=== PATIENT | female | born 1975 | race Caucasian/White ===

== ENCOUNTER → 2017-11-07 10:07 | Outpatient (CLI) | payer BC, SELFPAY ==
[2017-11-07 12:20] LABS: Absolute Lymphocyte Count 2.29 X10^3/ul (0.83-4.51); Absolute Neutrophil Count 4.5 X10^3/uL (2.0-7.7); Basophil# 0.04 X10^3/uL; Basophil% 0.5 % (0-1); Eosinophil# 0.12 X10^3/uL; Eosinophils% 1.6 % (0-5); Hematocrit 42.5 % (37-47); Hemoglobin 13.7 g/dl (12.0-15.0); Lymphocyte # 2.29 X10^3/ul (4.0); Lymphocyte % 30.1 % (19-41); Mean Corp Hgb Conc 32.2 g/gl (32-36); Mean Corpuscular Hgb 28.2 pg (27.0-32.0); Mean Corpuscular Volume 87.6 fL (81-99); Mean Platelet Vol. 10.5 fl (6.2-12.0); Monocyte# 0.64 X10^3/uL; Monocyte% 8.4 % (0-10); Neutrophil # 4.52 X10^3/uL (2.7-7.7); Neutrophil % 59.3 % (47-70); Platelet Count 449 K/mm3 (150-450); RBC Distribution Width CV 13.8 % (11.6-14.6); RBC Distribution Width SD 43.9 fl (35.1-43.9); Red Blood Count 4.85 M/mm3 (4.2-5.4); White Blood Count 7.6 K/mm3 (4.4-11.0)
[2017-11-07 12:24] LABS: POSITIVE COUNT NO; POSITIVE DIFFERENTIAL NO; POSITIVE MORPHOLOGY NO
[2017-11-07 12:33] LABS: ALB/GLOB Ratio 0.8 RATIO (0.9-2.4); AST(SGOT) 16 U/L (15-37); Alanine Aminotransfer ALT/SGPT 34 U/L (13-56); Albumin, Serum 3.6 g/dL (3.2-5.0); Alkaline Phosphatase 92 U/L (45-117); Anion Gap 6 (5-15); BUN 14 mg/dL (7-18); BUN/Creat Ratio 15.5 RATIO (10-20); Calcium,Total 9.2 mg/dL (8.5-10.1); Chloride 104 mmol/L (98-107); EST Glomerular Filtration Rate 73 mL/min (>60); Est Glom Filt Rate - Afr Amer 88 mL/min (>60); Globulin 4.6 g/dL (2.2-4.2); Glucose 87 mg/dL (74-106); Potassium 4.1 mmol/L (3.5-5.1); Protein, Total 8.2 g/dL (6.4-8.2); Rheumatoid Factor < 10.0 IU/mL (<15); Sodium Level 139 mmol/L (136-145)
[2017-11-07 12:35] LABS: Color, Urine Yellow (Yellow); Glucose, Dipstick Normal (Normal); Ketone-Dipstick Negative (Negative); Leukocyte Esterase-Dipstick Negative /ul (Negative); Nitrite-Dipstick Negative (Negative); Occult Blood-Urine Negative /ul (Negative); Protein-Dipstick Negative (Negative); Urine Bilirubin Dipstick Negative (Negative); Urine Clarity Sl. Cloudy (Clear); Urine Urobilinogen Normal (Normal)
[2017-11-07 12:37] LABS: Protein, Urine (Random) 14.5 mg/dL (<11.9); Protein:Creat Ratio 63 mg/g CRE (0-200)
[2017-11-09 03:06] LABS: Complement C3 187 mg/dL (82-167)
[2017-11-09 07:58] LABS: CCP IgG Antibodies 5 units (0-19); HEPATITIS B SURFACE AG Negative (Negative); Hep B Surface Antibodies Non Reactive (.); Hep C Antibodies <0.1 s/co ratio (0.0-0.9)
[2017-11-10 12:07] LABS: Anti-Centromere B Ab <0.2 AI (0.0-0.9); Anti-Jo <0.2 AI (0.0-0.9); Anti-Scleroderma-70 AB <0.2 AI (0.0-0.9); RNP Ab <0.2 AI (0.0-0.9); SJOGREN'S Anti-SS-A test < 0.2 AI (0.0-0.9); SJOGREN'S Anti-SS-B test < 0.2 AI (0.0-0.9); Smith Ab <0.2 AI (0.0-0.9)
[2017-11-10 15:17] LABS: ANTINUCLEAR ANTIBODIES DIRECT Negative (Negative); Anti-dsDNA Ab <1 IU/mL (0-9)
== END ==
LOC: MTLAB 10:10
PROVIDERS: Family Provider Nurse Practitioner Family; PCP Nurse Practitioner Family; Visit Provider Internal Medicine Rheumatology
DX: M06.4 Inflammatory polyarthropathy (principal); R76.8 Other specified abnormal immunological findings in serum; M79.7 Fibromyalgia; K21.9 Gastro-esophageal reflux disease without esophagitis; J45.909 Unspecified asthma, uncomplicated; R51 Headache; E03.9 Hypothyroidism, unspecified; E78.5 Hyperlipidemia, unspecified; G47.33 Obstructive sleep apnea (adult) (pediatric)
CPT/HCPCS: 36415; 80053; 81002; 82570; 84156; 85025; 86038; 86160; 86200; 86225; 86235; 86431; 86706; 86803; 87340

== ENCOUNTER → 2018-01-20 16:23 | Outpatient (CLI) | payer BC, SELFPAY ==
[2018-01-20 18:15] LABS: ALB/GLOB Ratio 0.8 RATIO (0.9-2.4); AST(SGOT) 22 U/L (15-37); Alanine Aminotransfer ALT/SGPT 47 U/L (13-56); Albumin, Serum 3.4 g/dL (3.2-5.0); Alkaline Phosphatase 94 U/L (45-117); Anion Gap 10 (5-15); BUN 15 mg/dL (7-18); BUN/Creat Ratio 14.7 RATIO (10-20); Calcium,Total 8.7 mg/dL (8.5-10.1); Chloride 104 mmol/L (98-107); Creatinine, Serum 1.02 mg/dL (0.55-1.02); EST Glomerular Filtration Rate 63 mL/min (>60); Est Glom Filt Rate - Afr Amer 76 mL/min (>60); Globulin 4.1 g/dL (2.2-4.2); Glucose 120 mg/dL (74-106); Potassium 3.7 mmol/L (3.5-5.1); Protein, Total 7.5 g/dL (6.4-8.2); Sodium Level 141 mmol/L (136-145)
[2018-01-20 18:17] LABS: Absolute Lymphocyte Count 2.76 X10^3/ul (0.83-4.51); Absolute Neutrophil Count 5.5 X10^3/uL (2.0-7.7); Basophil# 0.04 X10^3/uL; Basophil% 0.5 % (0-1); Eosinophil# 0.11 X10^3/uL; Eosinophils% 1.2 % (0-5); Hematocrit 41.1 % (37-47); Hemoglobin 12.6 g/dl (12.0-15.0); Lymphocyte # 2.76 X10^3/ul (4.0); Lymphocyte % 31.2 % (19-41); Mean Corp Hgb Conc 30.7 g/gl (32-36); Mean Corpuscular Hgb 27.2 pg (27.0-32.0); Mean Corpuscular Volume 88.6 fL (81-99); Mean Platelet Vol. 10.3 fl (6.2-12.0); Monocyte# 0.43 X10^3/uL; Monocyte% 4.9 % (0-10); Neutrophil # 5.51 X10^3/uL (2.7-7.7); Neutrophil % 62.1 % (47-70); Platelet Count 471 K/mm3 (150-450); RBC Distribution Width CV 14.7 % (11.6-14.6); RBC Distribution Width SD 46.6 fl (35.1-43.9); Red Blood Count 4.64 M/mm3 (4.2-5.4); White Blood Count 8.9 K/mm3 (4.4-11.0)
[2018-01-20 18:20] LABS: POSITIVE COUNT NO; POSITIVE DIFFERENTIAL NO; POSITIVE MORPHOLOGY NO
== END ==
PROVIDERS: Family Provider Nurse Practitioner Family; PCP Nurse Practitioner Family; Visit Provider Internal Medicine Rheumatology
DX: M06.4 Inflammatory polyarthropathy (principal); R76.8 Other specified abnormal immunological findings in serum; M79.7 Fibromyalgia; K21.9 Gastro-esophageal reflux disease without esophagitis; J45.909 Unspecified asthma, uncomplicated; R51 Headache; E03.9 Hypothyroidism, unspecified; E78.5 Hyperlipidemia, unspecified; G47.33 Obstructive sleep apnea (adult) (pediatric)
CPT/HCPCS: 36415; 80053; 85025

== ENCOUNTER → 2018-04-17 14:14 | Outpatient (CLI) | payer BC, SELFPAY ==
[2018-04-17 15:50] LABS: Absolute Lymphocyte Count 2.41 X10^3/ul (0.83-4.51); Absolute Neutrophil Count 4.8 X10^3/uL (2.0-7.7); Basophil# 0.05 X10^3/uL; Basophil% 0.6 % (0-1); Eosinophil# 0.12 X10^3/uL; Eosinophils% 1.5 % (0-5); Hematocrit 40.3 % (37-47); Hemoglobin 12.5 g/dl (12.0-15.0); Lymphocyte # 2.41 X10^3/ul (4.0); Lymphocyte % 29.6 % (19-41); Mean Corpuscular Volume 90.4 fL (81-99); Mean Platelet Vol. 10.3 fl (6.2-12.0); Monocyte# 0.79 X10^3/uL; Monocyte% 9.7 % (0-10); Neutrophil # 4.75 X10^3/uL (2.7-7.7); Neutrophil % 58.4 % (47-70); Platelet Count 418 K/mm3 (150-450); RBC Distribution Width CV 14.8 % (11.6-14.6); Red Blood Count 4.46 M/mm3 (4.2-5.4); White Blood Count 8.1 K/mm3 (4.4-11.0)
[2018-04-17 15:54] LABS: POSITIVE COUNT NO; POSITIVE DIFFERENTIAL NO; POSITIVE MORPHOLOGY NO
[2018-04-17 16:26] LABS: ALB/GLOB Ratio 0.8 RATIO (0.9-2.4); AST(SGOT) 16 U/L (15-37); Alanine Aminotransfer ALT/SGPT 35 U/L (13-56); Albumin, Serum 3.3 g/dL (3.2-5.0); Alkaline Phosphatase 96 U/L (45-117); Anion Gap 8 (5-15); BUN 14 mg/dL (7-18); BUN/Creat Ratio 15.8 RATIO (10-20); Calcium,Total 8.7 mg/dL (8.5-10.1); Chloride 106 mmol/L (98-107); Creatinine, Serum 0.88 mg/dL (0.55-1.02); EST Glomerular Filtration Rate 74 mL/min (>60); Est Glom Filt Rate - Afr Amer 90 mL/min (>60); Glucose 78 mg/dL (74-106); Potassium 3.8 mmol/L (3.5-5.1); Protein, Total 7.3 g/dL (6.4-8.2); Sodium Level 143 mmol/L (136-145)
== END ==
PROVIDERS: Family Provider Nurse Practitioner Family; PCP Nurse Practitioner Family; Visit Provider Internal Medicine Rheumatology
DX: M06.4 Inflammatory polyarthropathy (principal); Z79.899 Other long term (current) drug therapy; M79.7 Fibromyalgia; K21.9 Gastro-esophageal reflux disease without esophagitis; J45.909 Unspecified asthma, uncomplicated; R51 Headache; E03.9 Hypothyroidism, unspecified; E78.5 Hyperlipidemia, unspecified; G47.33 Obstructive sleep apnea (adult) (pediatric)
CPT/HCPCS: 36415; 80053; 85025

== ENCOUNTER → 2018-08-17 12:04 | Outpatient (CLI) | payer BC, SELFPAY ==
[2018-08-17 12:39] LABS: Absolute Lymphocyte Count 2.44 X10^3/ul (0.83-4.51); Absolute Neutrophil Count 4.9 X10^3/uL (2.0-7.7); Basophil# 0.04 X10^3/uL; Basophil% 0.5 % (0-1); Eosinophil# 0.14 X10^3/uL; Eosinophils% 1.7 % (0-5); Hematocrit 40.2 % (37-47); Hemoglobin 12.8 g/dl (12.0-15.0); Lymphocyte # 2.44 X10^3/ul (4.0); Lymphocyte % 29.7 % (19-41); Mean Corp Hgb Conc 31.8 g/gl (32-36); Mean Corpuscular Hgb 29.2 pg (27.0-32.0); Mean Corpuscular Volume 91.8 fL (81-99); Mean Platelet Vol. 10.2 fl (6.2-12.0); Monocyte% 8.5 % (0-10); Neutrophil # 4.88 X10^3/uL (2.7-7.7); Neutrophil % 59.4 % (47-70); Platelet Count 426 K/mm3 (150-450); RBC Distribution Width CV 14.9 % (11.6-14.6); RBC Distribution Width SD 48.2 fl (35.1-43.9); Red Blood Count 4.38 M/mm3 (4.2-5.4); White Blood Count 8.2 K/mm3 (4.4-11.0)
[2018-08-17 12:40] LABS: POSITIVE COUNT NO; POSITIVE DIFFERENTIAL NO; POSITIVE MORPHOLOGY NO
[2018-08-17 13:06] LABS: ALB/GLOB Ratio 0.8 RATIO (0.9-2.4); AST(SGOT) 25 U/L (15-37); Alanine Aminotransfer ALT/SGPT 46 U/L (13-56); Albumin, Serum 3.5 g/dL (3.2-5.0); Alkaline Phosphatase 92 U/L (45-117); Anion Gap 7 (5-15); BUN 15 mg/dL (7-18); BUN/Creat Ratio 18.6 RATIO (10-20); Calcium,Total 8.9 mg/dL (8.5-10.1); Chloride 106 mmol/L (98-107); Creatinine, Serum 0.81 mg/dL (0.55-1.02); EST Glomerular Filtration Rate 82 mL/min (>60); Est Glom Filt Rate - Afr Amer 99 mL/min (>60); Globulin 4.3 g/dL (2.2-4.2); Glucose 94 mg/dL (74-106); Potassium 4.1 mmol/L (3.5-5.1); Protein, Total 7.8 g/dL (6.4-8.2); Sodium Level 141 mmol/L (136-145)
--- OUTSIDE RECORDS SUMMARY | 2018-10-19 23:07 | XMS RPT_ITS ---
:1975 Author Organization [facility] Care Team Providers Name Role Phone CHANO GOMEZ CNP Attending Unavailable CHANO GOMEZ CNP Primary Care Unavailable CHANO GOMEZ CNP Attending Unavailable CHANO GOMEZ CNP Primary Care Unavailable JANETTE BANERJEE MD Attending Unavailable CHANO GOMEZ CNP Primary Care Unavailable Cata Lopez Attending Unavailable Chano Gomez RFID ENGINEER-C Primary Care Unavailable Cata Lopez Referring Unavailable Cata Lopez Attending Unavailable CHANO GOMEZ Primary Care Unavailable Vellanki, Cata Attending Unavailable Vellanashley, Cata Referring Unavailable Chano Gomez RFID ENGINEER-C Primary Care Unavailable Vellanki, Cata Attending Unavailable Jessica, Cata Referring Unavailable Chano Gomez RFID ENGINEER-C Primary Care Unavailable PROBLEMS PROBLEMS DATE TYPE CONDITION / CODE ATTENDING STATUS SOURCE 04/17/2018 Unknown 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, Active [place] polyarthropathy / [facility] M06.4(ICD-10) Hospital Repository 04/17/2018 Unknown M79.7 - Fibromyalgia [place]i, Active [place] / M79.7(ICD-10) [facility] Hospital Repository 04/17/2018 Unknown K21.9 - [place], Active [place] Gastro-esophageal [facility] reflux disease Hospital without esophagitis Repository / K21.9(ICD-10) 04/17/2018 Unknown J45.909 - [place]i, Active [place] Unspecified asthma, [facility] uncomplicated / Hospital J45.909(ICD-10) Repository 04/17/2018 Unknown R51 - Headache / [place], Active [place] R51(ICD-10) [facility] Hospital Repository 04/17/2018 Unknown E03.9 - [place], Active [place] Hypothyroidism, [facility] unspecified / Hospital E03.9(ICD-10) Repository 04/17/2018 Unknown E78.5 - [place]i, Active [place] Hyperlipidemia, [facility] unspecified / Hospital E78.5(ICD-10) Repository 04/17/2018 Unknown G47.33 - Obstructive [place]i, Active [place] sleep apnea (adult) [facility] (pediatric) / Hospital G47.33(ICD-10) Repository 04/17/2018 Unknown Z79.899 - Other long [place]i, Active [place] term (current) drug [facility] therapy / Hospital Z79.899(ICD-10) Repository 01/20/2018 Unknown R76.8 - Other [place], Active [place] specified abnormal [facility] immunological Hospital findings in serum / Repository R76.8(ICD-10) 10/27/2017 Admitting Hypothyroidism, [employer], Active [facility] Diagnosis unspecified / CHANO Marquez E03.9(ICD-10) Repository 10/27/2017 Admitting Hyperlipidemia, [employer], Active [facility] Diagnosis unspecified / CHANO Maqruez E78.5(ICD-10) Repository PROCEDURES PROCEDURES No Procedure Records FoundRESULTS RESULTS CBC W/DIFF, AUTOMATED Collected: 08/17/2018 Status: F Source: [place] 12:08 PM [facility] REPOSITORY TYPE CODE TESTS RESULT OUT OF RANGE REFERENCE UNITS LAB L100.1000 4.4-11.0 K/mm3 Normal WBC 8.2 LAB L100.1200 4.2-5.4 M/mm3 Normal RBC 4.38 LAB L100.1300 12.0-15.0 g/dl Normal HGB 12.8 LAB L100.1400 37-47 % Normal HCT 40.2 LAB L100.1500 81-99 fL Normal MCV 91.8 LAB L100.1600 27.0-32.0 pg Normal MCH 29.2 LAB L100.1700 32-36 g/gl Low MCHC 31.8 LAB L100.1810 11.6-14.6 % High RDW CV 14.9 LAB L100.1820 35.1-43.9 fl High RDW SD 48.2 LAB L100.1900 150-450 K/mm3 Normal PLT 426 LAB L100.2000 6.2-12.0 fl Normal MPV 10.2 LAB L100.2100 47-70 % Normal NEUT% 59.4 LAB L100.2200 19-41 % Normal LY% 29.7 LAB L100.2300 0-10 % Normal MONO% 8.5 LAB L100.2400 0-5 % Normal EO% 1.7 LAB L100.2500 0-1 % Normal BASO% 0.5 LAB L100.2550 0.0-0.9 % Normal IM GRAN % 0.200 Result Comment: IG% - Immature Granulocytes (promyelocytes, myelocytes and metamyelocytes) > 1% indicates that a LEFT SHIFT is Present. LAB L100.2620 2.0-7.7 X10 3/uL Normal Absolute Neut 4.9 LAB L100.2720 0.83-4.51 X10 3/ul Normal Absolute Lymph 2.44 Performed By: #### L100.0100 #### [facility] [address] [place], [address] COMPREHENSIVE METABOLIC Collected: 08/17/2018 Status: F Source: [place] PROFIL 12:08 PM [facility] REPOSITORY TYPE CODE TESTS RESULT OUT OF RANGE REFERENCE UNITS LAB L501.0100 74-106 mg/dL Normal GLU 94 Result Comment: Please note revised GLUCOSE reference range effective 2017. LAB L501.1000 7-18 mg/dL Normal BUN 15 LAB L501.1100 0.55-1.02 mg/dL Normal CREAT,SERUM 0.81 Result Comment: The validity of the calculated GFR AND GFRAA in patients over 70 years has not been determined. Clinical correlation is essential. LAB L501.1110 >60 mL/min Normal EST GFR 82 Result Comment: Non- GFR Calc LAB L501.1115 >60 mL/min Normal EST GFR - AA 99 Result Comment: GFR Calc LAB L501.1300 10-20 RATIO Normal BUN/CRE 18.6 LAB L501.1500 6.4-8.2 g/dL T Normal PROT 7.8 LAB L501.1800 3.2-5.0 g/dL Normal ALB 3.5 LAB L501.1950 2.2-4.2 g/dL High GLOB 4.3 LAB L501.2000 0.9-2.4 RATIO Low A/G 0.8 LAB L501.2200 8.5-10.1 mg/dL CA Normal 8.9 LAB L501.4100 15-37 U/L Normal AST 25 LAB L501.4305 45-117 U/L Normal ALK P 92 LAB L501.4405 13-56 U/L Normal ALT 46 LAB L501.4600 0.20-1.00 mg/dL T Normal BILI 0.20 LAB L501.5300 136-145 mmol/L NA Normal 141 LAB L501.5600 3.5-5.1 mmol/L K Normal 4.1 LAB L501.5900 98-107 mmol/L CL Normal 106 LAB L501.6100 21.0-32.0 mmol/L Normal CO2 28.0 LAB L501.6200 5-15 Normal GAP 7 Performed By: #### L500.4050 #### [facility] [address] [place], [place], [address] CBC W/DIFF, AUTOMATED Collected: 04/17/2018 Status: F Source: [place] 2:19 PM [facility] REPOSITORY TYPE CODE TESTS RESULT OUT OF RANGE REFERENCE UNITS LAB L100.1000 4.4-11.0 K/mm3 Normal WBC 8.1 LAB L100.1200 4.2-5.4 M/mm3 Normal RBC 4.46 LAB L100.1300 12.0-15.0 g/dl Normal HGB 12.5 LAB L100.1400 37-47 % Normal HCT 40.3 LAB L100.1500 81-99 fL Normal MCV 90.4 LAB L100.1600 27.0-32.0 pg Normal MCH 28.0 LAB L100.1700 32-36 g/gl Low MCHC 31.0 LAB L100.1810 11.6-14.6 % High RDW CV 14.8 LAB L100.1820 35.1-43.9 fl High RDW SD 48.0 LAB L100.1900 150-450 K/mm3 Normal PLT 418 LAB L100.2000 6.2-12.0 fl Normal MPV 10.3 LAB L100.2100 47-70 % Normal NEUT% 58.4 LAB L100.2200 19-41 % Normal LY% 29.6 LAB L100.2300 0-10 % Normal MONO% 9.7 LAB L100.2400 0-5 % Normal EO% 1.5 LAB L100.2500 0-1 % Normal BASO% 0.6 LAB L100.2550 0.0-0.9 % Normal IM GRAN % 0.200 Result Comment: IG% - Immature Granulocytes (promyelocytes, myelocytes and metamyelocytes) > 1% indicates that a LEFT SHIFT is Present. LAB L100.2620 2.0-7.7 X10 3/uL Normal Absolute Neut 4.8 LAB L100.2720 0.83-4.51 X10 3/ul Normal Absolute Lymph 2.41 Performed By: #### L100.0100 #### [facility] [address] [place], [place], [address] COMPREHENSIVE METABOLIC Collected: 04/17/2018 Status: F Source: [place] [facility] 2:19 PM [facility] REPOSITORY TYPE CODE TESTS RESULT OUT OF RANGE REFERENCE UNITS LAB L501.0100 74-106 mg/dL Normal GLU 78 Result Comment: Please note revised GLUCOSE reference range effective 2017. LAB L501.1000 7-18 mg/dL Normal BUN 14 LAB L501.1100 0.55-1.02 mg/dL Normal CREAT,SERUM 0.88 Result Comment: The validity of the calculated GFR AND GFRAA in patients over 70 years has not been determined. Clinical correlation is essential. LAB L501.1110 >60 mL/min Normal EST GFR 74 Result Comment: Non- GFR Calc LAB L501.1115 >60 mL/min Normal EST GFR - AA 90 Result Comment: GFR Calc LAB L501.1300 10-20 RATIO Normal BUN/CRE 15.8 LAB L501.1500 6.4-8.2 g/dL T Normal PROT 7.3 LAB L501.1800 3.2-5.0 g/dL Normal ALB 3.3 LAB L501.1950 2.2-4.2 g/dL Normal GLOB 4.0 LAB L501.2000 0.9-2.4 RATIO Low A/G 0.8 LAB L501.2200 8.5-10.1 mg/dL CA Normal 8.7 LAB L501.4100 15-37 U/L Normal AST 16 LAB L501.4305 45-117 U/L Normal ALK P 96 LAB L501.4405 13-56 U/L Normal ALT 35 LAB L501.4600 0.20-1.00 mg/dL T Normal BILI 0.30 LAB L501.5300 136-145 mmol/L NA Normal 143 LAB L501.5600 3.5-5.1 mmol/L K Normal 3.8 LAB L501.5900 98-107 mmol/L CL Normal 106 LAB L501.6100 21.0-32.0 mmol/L Normal CO2 29.0 LAB L501.6200 5-15 Normal GAP 8 Performed By: #### L500.4050 #### [facility] [place], [address] [place] MAMMOGRAM SCREENING Observed: 03/24/2018 Status: F Source: [facility] BILATERAL W/KIM 10:30 AM FOUNDATION REPOSITORY ORIGINAL FROM: [place] [id number] [place], [place] [address] PROCEDURE FOR: YRN PEREZ [address] [place] [address] Home: PID#: [id number] Exam#: [id number] : 1975 Age: 42 TO: JANETTE BANERJEE MD [address] [facility] [address] [place], [place] [address] #[id number] DIGITAL SCREENING MAMMOGRAM 3D/2D WITH CAD WITH MEDIOLATERAL OBLIQUE CRANIOCAUDAL: 03/24/2018 Comparison is made to exam dated: 07/01/2016 mammogram - [facility]. The tissue of both breasts is predominately fatty. Current study was also evaluated with a Computer Aided Detection (CAD) system. No significant masses, calcifications, or other findings are seen in either breast. There has been no significant interval change. IMPRESSION: NEGATIVE There is no mammographic evidence of malignancy. A 1 year screening mammogram is recommended. I have personally reviewed the images of the examination and agree with the findings and interpretation. LISANDRO bustillos,ezra/penny:03/25/2018 09:02:55 copy to: CHANO GOMEZ NP, ph: [phone], fax: [phone] Float Remover: JOHN Montanez)(M), [facility] letter sent: Normal BI-RADS 1&2 Mammogram BI-RADS: 1 Negative LIPID Collected: 01/31/2018 Status: F Source: [facility] 11:10 AM [facility] REPOSITORY TYPE CODE TESTS RESULT OUT OF REFERENCE UNITS RANGE LAB CHOL(LOINC 131-200 mg/dL ) Cholesterol 149 Result Comment: Cholesterol Reference Interval: Less than 200 Desirable 200-239 Borderline high risk 240 and above High risk LAB TRIG(LOINC) 40-150 mg/dL Triglycerides High 203 Result Comment: Triglyceride Reference Interval: Less than 150 Normal 150-199 Borderline high risk 200-499 High risk 500 or higher Very high risk LAB HD(LOINC) 35-90 mg/dL HDL Cholesterol 45 Result Comment: HDL Reference Interval: Less than 40 Low - high risk 60 or above Optimal/lowers risk LAB LDL(LOINC) 0-130 mg/dL LDL Cholesterol 63 Result Comment: LDL is a calculated result and requires a 12-hr fast. LDL Reference Interval: Less than 100 Optimal 100-129 Near or above optimal 130-159 Borderline high risk 160-189 High risk 190 and above Very high risk Performed By: #### LIPID, TSH, FT4 #### [place] [address] [place], [place] [address] TSH Collected: 01/31/2018 Status: F Source: [facility] 11:10 AM [facility] REPOSITORY TYPE CODE TESTS RESULT OUT OF RANGE REFERENCE UNITS LAB TSH(LOINC) 0.27-4.20 mcIU/mL TSH 3.20 Performed By: #### LIPID, TSH, FT4 #### [place] [address] [place], [place] [address] FT4 Collected: 01/31/2018 Status: F [facility] 11:10 AM [facility] REPOSITORY TYPE CODE TESTS RESULT OUT OF RANGE REFERENCE UNITS LAB FT4(LOINC) 0.6-1.7 ng/mL Free T4 1.4 Performed By: #### LIPID, TSH, FT4 #### [place] [address] [place], [place] [address] COMPREHENSIVE METABOLIC Collected: 01/20/2018 Status: F Source: [place] 4:27 PM [facility] REPOSITORY TYPE CODE TESTS RESULT OUT OF RANGE REFERENCE UNITS LAB L501.0100 74-106 mg/dL High GLU 120 Result Comment: Fasting Glucose result from 100 to 125 mg/dL suggests IMPAIRED HOMEOSTASIS per A.D.A. criteria. Please note revised GLUCOSE reference range effective 2017. LAB L501.1000 7-18 mg/dL Normal BUN 15 LAB L501.1100 0.55-1.02 mg/dL Normal CREAT,SERUM 1.02 Result Comment: The validity of the calculated GFR AND GFRAA in patients over 70 years has not been determined. Clinical correlation is essential. LAB L501.1110 >60 mL/min Normal EST GFR 63 Result Comment: Non- GFR Calc LAB L501.1115 >60 mL/min Normal EST GFR - AA 76 Result Comment: GFR Calc LAB L501.1300 10-20 RATIO Normal BUN/CRE 14.7 LAB L501.1500 6.4-8.2 g/dL T Normal PROT 7.5 LAB L501.1800 3.2-5.0 g/dL Normal ALB 3.4 LAB L501.1950 2.2-4.2 g/dL Normal GLOB 4.1 LAB L501.2000 0.9-2.4 RATIO Low A/G 0.8 LAB L501.2200 8.5-10.1 mg/dL CA Normal 8.7 LAB L501.4100 15-37 U/L Normal AST 22 LAB L501.4305 45-117 U/L Normal ALK P 94 LAB L501.4405 13-56 U/L Normal ALT 47 LAB L501.4600 0.20-1.00 mg/dL T Normal BILI 0.40 LAB L501.5300 136-145 mmol/L NA Normal 141 LAB L501.5600 3.5-5.1 mmol/L K Normal 3.7 LAB L501.5900 98-107 mmol/L CL Normal 104 LAB L501.6100 21.0-32.0 mmol/L Normal CO2 27.0 LAB L501.6200 5-15 Normal GAP 10 Performed By: #### L500.4050 #### [facility] [address] [place], [address] CBC W/DIFF, AUTOMATED Collected: 01/20/2018 Status: F Source: [place] 4:27 PM [facility] REPOSITORY TYPE CODE TESTS RESULT OUT OF RANGE REFERENCE UNITS LAB L100.1000 4.4-11.0 K/mm3 Normal WBC 8.9 LAB L100.1200 4.2-5.4 M/mm3 Normal RBC 4.64 LAB L100.1300 12.0-15.0 g/dl Normal HGB 12.6 LAB L100.1400 37-47 % Normal HCT 41.1 LAB L100.1500 81-99 fL Normal MCV 88.6 LAB L100.1600 27.0-32.0 pg Normal MCH 27.2 LAB L100.1700 32-36 g/gl Low MCHC 30.7 LAB L100.1810 11.6-14.6 % High RDW CV 14.7 LAB L100.1820 35.1-43.9 fl High RDW SD 46.6 LAB L100.1900 150-450 K/mm3 High PLT 471 LAB L100.2000 6.2-12.0 fl Normal MPV 10.3 LAB L100.2100 47-70 % Normal NEUT% 62.1 LAB L100.2200 19-41 % Normal LY% 31.2 LAB L100.2300 0-10 % Normal MONO% 4.9 LAB L100.2400 0-5 % Normal EO% 1.2 LAB L100.2500 0-1 % Normal BASO% 0.5 LAB L100.2550 0.0-0.9 % Normal IM GRAN % 0.100 Result Comment: IG% - Immature Granulocytes (promyelocytes, myelocytes and metamyelocytes) > 1% indicates that a LEFT SHIFT is Present. LAB L100.2620 2.0-7.7 X10 3/uL Normal Absolute Neut 5.5 LAB L100.2720 0.83-4.51 X10 3/ul Normal Absolute Lymph 2.76 Performed By: #### L100.0100 #### [facility] [address] [facility] [place], [address] CBC W/DIFF, AUTOMATED Collected: 11/07/2017 Status: F Source: [place] 10:12 AM [facility] REPOSITORY TYPE CODE TESTS RESULT OUT OF RANGE REFERENCE UNITS LAB L100.1000 4.4-11.0 K/mm3 Normal WBC 7.6 LAB L100.1200 4.2-5.4 M/mm3 Normal RBC 4.85 LAB L100.1300 12.0-15.0 g/dl Normal HGB 13.7 LAB L100.1400 37-47 % Normal HCT 42.5 LAB L100.1500 81-99 fL Normal MCV 87.6 LAB L100.1600 27.0-32.0 pg Normal MCH 28.2 LAB L100.1700 32-36 g/gl Normal MCHC 32.2 LAB L100.1810 11.6-14.6 % Normal RDW CV 13.8 LAB L100.1820 35.1-43.9 fl Normal RDW SD 43.9 LAB L100.1900 150-450 K/mm3 Normal PLT 449 LAB L100.2000 6.2-12.0 fl Normal MPV 10.5 LAB L100.2100 47-70 % Normal NEUT% 59.3 LAB L100.2200 19-41 % Normal LY% 30.1 LAB L100.2300 0-10 % Normal MONO% 8.4 LAB L100.2400 0-5 % Normal EO% 1.6 LAB L100.2500 0-1 % Normal BASO% 0.5 LAB L100.2550 0.0-0.9 % Normal IM GRAN % 0.100 Result Comment: IG% - Immature Granulocytes (promyelocytes, myelocytes and metamyelocytes) > 1% indicates that a LEFT SHIFT is Present. LAB L100.2620 2.0-7.7 X10 3/uL Normal Absolute Neut 4.5 LAB L100.2720 0.83-4.51 X10 3/ul Normal Absolute Lymph 2.29 Performed By: #### L100.0100 #### [facility] [address] [place], [address] COMPREHENSIVE METABOLIC Collected: 11/07/2017 Status: F Source: [facility] 10:12 AM [facility] REPOSITORY TYPE CODE TESTS RESULT OUT OF RANGE REFERENCE UNITS LAB L501.0100 74-106 mg/dL Normal GLU 87 Result Comment: Please note revised GLUCOSE reference range effective 2017. LAB L501.1000 7-18 mg/dL Normal BUN 14 LAB L501.1100 0.55-1.02 mg/dL Normal CREAT,SERUM 0.90 Result Comment: The validity of the calculated GFR AND GFRAA in patients over 70 years has not been determined. Clinical correlation is essential. LAB L501.1110 >60 mL/min Normal EST GFR 73 Result Comment: Non- GFR Calc LAB L501.1115 >60 mL/min Normal EST GFR - AA 88 Result Comment: GFR Calc LAB L501.1300 10-20 RATIO Normal BUN/CRE 15.5 LAB L501.1500 6.4-8.2 g/dL T Normal PROT 8.2 LAB L501.1800 3.2-5.0 g/dL Normal ALB 3.6 LAB L501.1950 2.2-4.2 g/dL High GLOB 4.6 LAB L501.2000 0.9-2.4 RATIO Low A/G 0.8 LAB L501.2200 8.5-10.1 mg/dL CA Normal 9.2 LAB L501.4100 15-37 U/L Normal AST 16 LAB L501.4305 45-117 U/L Normal ALK P 92 LAB L501.4405 13-56 U/L Normal ALT 34 Result Comment: Please note revised ALT reference range effective 2017. LAB L501.4600 0.20-1.00 mg/dL Normal T BILI 0.30 LAB L501.5300 136-145 mmol/L Normal NA 139 LAB L501.5600 3.5-5.1 mmol/L Normal K 4.1 LAB L501.5900 98-107 mmol/L Normal CL 104 LAB L501.6100 21.0-32.0 mmol/L Normal CO2 29.0 LAB L501.6200 5-15 Normal GAP 6 Performed By: #### L500.4050, L505.7010 #### [facility] [address] [facility] [place], [address] RHEUMATOID FACTOR Collected: 11/07/2017 Status: F Source: [place] 10:12 AM [facility] REPOSITORY TYPE CODE TESTS RESULT OUT OF RANGE REFERENCE UNITS LAB L505.7010 <15 IU/mL Normal RHEUMATOID FAC < 10.0 Performed By: #### L500.4050, L505.7010 #### [facility] [address] [facility] [place], [address] PROTEIN+CREATININE Collected: Status: F Source: [place] RATIO,URINE 11/07/2017 10:12 AM [facility] REPOSITORY TYPE CODE TESTS RESULT OUT OF RANGE REFERENCE UNITS LAB L501.1200 NO RANGE EST. mg/dL Normal UR CREAT 230.00 LAB L501.1930 <11.9 mg/dL High 14.5 PROTEIN,UR.R AN. LAB L501.1940 0-200 mg/g CRE Normal PROT:CRE 63 RATIO Performed By: #### L501.0900 #### [facility] [address] [facility] [place], [address] URINALYSIS, ROUTINE Collected: 11/07/2017 Status: F Source: [place] (DIPSTICK) 10:12 AM [facility] REPOSITORY Order Comment: How was Urine Obtained? CLEAN CATCH TYPE CODE TESTS RESULT OUT OF RANGE REFERENCE UNITS LAB L400.3000 Yellow COLOR Normal Yellow LAB L400.3050 Clear Normal CLARITY Sl. Cloudy LAB L400.3200 Normal mg/dl Normal GLUCOSE, UR Normal LAB L400.3300 Negative mg/dL Normal BILIRUBIN URINE Negative LAB L400.3400 Negative mg/dl Normal KETONE UR Negative LAB L400.3465 1.002-1.030 Normal SP.GR. DIPSTX 1.020 LAB L400.3550 5.0 - 8.0 pH UR Normal 5.0 LAB L400.3600 Negative mg/dl PROT Normal DIPSTX Negative LAB L400.3700 Normal mg/dl Normal UROBILI Normal LAB L400.3750 Negative Normal NITRITE UR Negative LAB L400.3780 Negative /ul Normal OCCULT BLOOD-UR Negative LAB L400.3800 Negative /ul LEUK Normal ESTERASE Negative Performed By: #### L400.2010 #### [facility] [address] [place], [place], [address] HEPATITIS B SURFACE Collected: 11/07/2017 Status: F Source: [place] AG 10:12 AM [facility] REPOSITORY TYPE CODE TESTS RESULT OUT OF RANGE REFERENCE UNITS LAB L3100.0400 Negative Normal HB Negative SURF AG Result Comment: Performed at: - [facility] [id number] Americanization Teacher: Young Denton PhD, Phone: [phone] Performed at: - [facility] [id number] Americanization Teacher: Adryan Hernández MD, Phone: [phone] Performed By: #### L3100.0390, L3100.0528, L3100.0625, L3100.5700, L3100.5800, L4600.0100 #### [facility] (refer to report for specific site) refer to report for address and phone number HEP B SURFACE Collected: 11/07/2017 Status: F Source: [place] ANTIBODIES 10:12 AM [facility] REPOSITORY TYPE CODE TESTS RESULT OUT OF RANGE REFERENCE UNITS LAB L3100.0528 . Normal Hep B Non Reactive Neal AB Result Comment: Non Reactive: Inconsistent with immunity, less than 10 mIU/mL Reactive: Consistent with immunity, greater than 9.9 mIU/mL Performed By: #### L3100.0390, L3100.0528, L3100.0625, L3100.5700, L3100.5800, L4600.0100 #### [facility] (refer to report for specific site) refer to report for address and phone number HEPATITIS C ANTIBODIES Collected: 11/07/2017 Status: F Source: [place] 10:12 AM [facility] REPOSITORY TYPE CODE TESTS RESULT OUT OF RANGE REFERENCE UNITS LAB L3100.0650 0.0-0.9 s/co ratio Normal HEP C AB <0.1 Result Comment: Negative: < 0.8 Indeterminate: 0.8 - 0.9 Positive: > 0.9 The CDC recommends that a positive HCV antibody result be followed up with a HCV Nucleic Acid Amplification test ([id number]). Performed By: #### L3100.0390, L3100.0528, L3100.0625, L3100.5700, L3100.5800, L4600.0100 #### [facility] (refer to report for specific site) refer to report for address and phone number COMPLEMENT C3 Collected: 11/07/2017 Status: F Source: [place] 10:12 AM [facility] REPOSITORY TYPE CODE TESTS RESULT OUT OF RANGE REFERENCE UNITS LAB L3100.5700 82-167 mg/dL High COMP C3 187 Performed By: #### L3100.0390, L3100.0528, L3100.0625, L3100.5700, L3100.5800, L4600.0100 #### [facility] (refer to report for specific site) refer to report for address and phone number COMPLEMENT C4 Collected: 11/07/2017 Status: F Source: [place] 10:12 AM [facility] REPOSITORY TYPE CODE TESTS RESULT OUT OF RANGE REFERENCE UNITS LAB L3100.5800 14-44 mg/dL High COMP C4 57 Performed By: #### L3100.0390, L3100.0528, L3100.0625, L3100.5700, L3100.5800, L4600.0100 #### [facility] (refer to report for specific site) refer to report for address and phone number CCP IGG ANTIBODIES Collected: 11/07/2017 Status: F Source: [place] 10:12 AM [facility] REPOSITORY TYPE CODE TESTS RESULT OUT OF RANGE REFERENCE UNITS LAB L4600.0100 0-19 units Normal ANTI-CCP 5 [id number] Result Comment: Negative <20 Weak positive 20 - 39 Moderate positive 40 - 59 Strong positive >59 Performed By: #### L3100.0390, L3100.0528, L3100.0625, L3100.5700, L3100.5800, L4600.0100 #### [facility] (refer to report for specific site) refer to report for address and phone number ANTINUCLEAR ANTIBODIES Collected: 11/07/2017 Status: F Source: [place] DIRECT 10:12 AM [facility] REPOSITORY TYPE CODE TESTS RESULT OUT OF RANGE REFERENCE UNITS LAB L3100.5475 Negative Normal Negative AILEEN-DIRECT Result Comment: Performed at: [facility] [id number] Americanization Teacher: Young Denton PhD, Phone: [phone] Performed By: #### L3100.5475, L3100.5500, L3100.9100, L3410.0500, L3410.0700, L3410.1110, L3410.4010 #### [facility] (refer to report for specific site) refer to report for address and phone number ANTI-DSDNA AB Collected: 11/07/2017 Status: F Source: [place] 10:12 AM [facility] REPOSITORY TYPE CODE TESTS RESULT OUT OF RANGE REFERENCE UNITS LAB L3100.5500 0-9 IU/mL Normal dsDNA AB <1 Result Comment: Negative <5 Equivocal 5 - 9 Positive >9 Performed By: #### L3100.5475, L3100.5500, L3100.9100, L3410.0500, L3410.0700, L3410.1110, L3410.4010 #### [facility] (refer to report for specific site) refer to report for address and phone number SJOGREN'S ANTIBODIES Collected: 11/07/2017 Status: F Source: [place] A/B 10:12 AM [facility] REPOSITORY TYPE CODE TESTS RESULT OUT OF RANGE REFERENCE UNITS LAB L3100.9200 0.0-0.9 AI Normal Anti-SS-A < 0.2 LAB L3100.9300 0.0-0.9 AI Normal Anti-SS-B < 0.2 Performed By: #### L3100.5475, L3100.5500, L3100.9100, L3410.0500, L3410.0700, L3410.1110, L3410.4010 #### [facility] (refer to report for specific site) refer to report for address and phone number ANTI-JOJO Collected: 11/07/2017 Status: F Source: DEO 10:12 AM [facility] REPOSITORY TYPE CODE TESTS RESULT OUT OF RANGE REFERENCE UNITS LAB L3410.0500 0.0-0.9 AI Normal ANTI-JOJO <0.2 Performed By: #### L3100.5475, L3100.5500, L3100.9100, L3410.0500, L3410.0700, L3410.1110, L3410.4010 #### [facility] (refer to report for specific site) refer to report for address and phone number [id number] Collected: Status: F Source: DEO 11/07/2017 10:12 AM [facility] REPOSITORY TYPE CODE TESTS RESULT OUT OF RANGE REFERENCE UNITS LAB L3410.0700 0.0-0.9 AI Normal ANTISCLER <0.2 Performed By: #### L3100.5475, L3100.5500, L3100.9100, L3410.0500, L3410.0700, L3410.1110, L3410.4010 #### [facility] (refer to report for specific site) refer to report for address and phone number ANTIEXTRACTABLE NUG AG Collected: 11/07/2017 Status: F Source: DEO 10:12 AM [facility] REPOSITORY TYPE CODE TESTS RESULT OUT OF RANGE REFERENCE UNITS LAB L3410.1200 0.0-0.9 AI Normal TUMBLER PLATER Ab <0.2 LAB L3410.1300 0.0-0.9 AI Normal VALENZUELA Ab <0.2 Performed By: #### L3100.5475, L3100.5500, L3100.9100, L3410.0500, L3410.0700, L3410.1110, L3410.4010 #### [facility] (refer to report for specific site) refer to report for address and phone number ANTI-CENTROMERE B AB Collected: 11/07/2017 Status: F Source: [facility] TYPE CODE TESTS RESULT OUT OF RANGE REFERENCE UNITS LAB L3410.4010 0.0-0.9 AI Normal ANTI-CENT <0.2 B Performed By: #### L3100.5475, L3100.5500, L3100.9100, L3410.0500, L3410.0700, L3410.1110, L3410.4010 #### [facility] (refer to report for specific site) refer to report for address and phone number LIPID Collected: 10/27/2017 Status: F Source: [place] [employer] 9:25 AM [facility] REPOSITORY TYPE CODE TESTS RESULT OUT OF REFERENCE UNITS RANGE LAB CHOL(LOINC 131-200 mg/dL ) Cholesterol High 269 Result Comment: Cholesterol Reference Interval: Less than 200 Desirable 200-239 Borderline high risk 240 and above High risk LAB TRIG(LOINC) 40-150 mg/dL Triglycerides High 178 Result Comment: Triglyceride Reference Interval: Less than 150 Normal 150-199 Borderline high risk 200-499 High risk 500 or higher Very high risk LAB HD(LOINC) 35-90 mg/dL HDL Cholesterol 56 Result Comment: HDL Reference Interval: Less than 40 Low - high risk 60 or above Optimal/lowers risk LAB LDL(LOINC) 0-130 mg/dL LDL High Cholesterol 177 Result Comment: LDL is a calculated result and requires a 12-hr fast. LDL Reference Interval: Less than 100 Optimal 100-129 Near or above optimal 130-159 Borderline high risk 160-189 High risk 190 and above Very high risk Performed By: #### LIPID, TSH #### [address] [address] TSH Collected: 10/27/2017 Status: F Source: [place] [employer] 9:25 AM [facility] REPOSITORY TYPE CODE TESTS RESULT OUT OF RANGE REFERENCE UNITS LAB TSH(LOINC) 0.27-4.20 mcIU/mL High TSH 5.33 Result Comment: Above normal(expected)range Performed By: #### LIPID, TSH #### [address] [place], [place] [address] ALLERGIES ALLERGIES No Allergies Records FoundENCOUNTERS ENCOUNTERS ADMIT/DISCHARGE ACCOUNT NUMBER ADMITTING ENCOUNTER LOCATION SOURCE CLASS 08/17/2018 [id number] Ambulatory [facility] ding:LAB.FUT Repository URE 04/17/2018 [id number] Ambulatory [facility] ding:MTLAB Repository 03/24/2018/03/24/20 [id number] Ambulatory [address] ding:RAD [facility] Repository 01/31/2018/02/01/20 [id number] Ambulatory [address] ding:OLAB [facility] Repository 01/20/2018 [id number] Ambulatory [facility] ding:MTLAB Repository 11/07/2017 [id number] Ambulatory [facility] ding:MTLAB Repository 10/27/2017/11/01/19 [id number] Ambulatory [address] ding:DROP [facility] Repository PAYERS PAYERS ENCOUNTER GUARANTOR PAYER SUBSCRIBER SOURCE 08/17/2018 COURTNEY Keenan Primary [facility] Insurance:ANTHEMPolicy WELLMANDOB: [facility] BOX Number: [id number] [place] [address]Gzp: ve Date:7747-81-74SH [address]QZSNNVY [facility] [address]XZ: 08/17/2018 Secondary NOT GIVENUNK [place] Insurance:SELF PAY [facility] Number: Effective Repository Date:2018-08-17 04/17/2018 COURTNEY Keenan Primary COURTNEY Cordobaoster [id number] Insurance:ANTHEMPolicy WELLMANDOB: [facility] [address] Number: [id number] [address]Xho: ve Date:4143-88-23JF [address] [address]CB: 04/17/2018 Secondary NOT GIVENUNK [place] Insurance:SELF PAY [facility] Number: Effective Repository Date:2018-04-17 03/24/2018 YRN [place] Primary COURTNEY Keenan [facility] WELLMANDOB: Insurance:ANTHEM BLUE WELLMANDOB: Foundation [id number] Health [id number] Repository [address] Number: [address] [place] [place] [id number] [place], [place] [address]Dcz: (330) ve Date:2018-03-19 385[address]Bzm: [id number] [phone] (HP)Tel: ([phone]) Name:[facility] BOX (HP) () [address], [place] [phone] () [address]HE: 01/31/2018 YRN [place] [facility] WELLMANDOB: Insurance:ANTHEM BLUE WELLMANDOB: [facility] [id number] Health [id number] Repository [address] Number: [address] [place] [id number] [place], [place] [address]Qjn: (330) ve Date:2018-01-31 [address]Ewp: [id number] [phone] (HP)Tel: [phone]) Name:[facility] BOX () () ULICES [place] [phone] () [address]MP: 01/20/2018 COURTNEY [facility] COURTNEY Desouza [id number] Insurance:ANTHEMPolicy WELLMANDOB: [facility] [address] Number: [id number] [address] [place] [id number] [place]ository [place] [address]Oav: ve Date:3211-44-40ZC [address], [place] () [address]NS: 01/20/2018 Secondary NOT GIVENUNK [place] Insurance:SELF PAY [facility] Number: Effective Repository Date:2018-01-20 11/07/2017 COURTNEY [facility] COURTNEY Desouza [id number] Insurance:ANTHEMPolicy WELLMANDOB: [facility] [address]OX Number: [id number] Hospital [address] [id number] Repository [place] [address]Bzp: ve Date:2676-76-88HP [address]WL[place]OGU[place], [place] () [address]RK: 11/07/2017 Secondary NOT GIVENUNK [place] Insurance:SELF PAY [facility] Number: Effective Repository Date:2017-11-07 10/27/2017 YRN [place] [facility] WELLMANDOB: [facility] [id number] [place] [facility] [id number] Repository [address] Number: [address] [place], [place] [id number] [place], [place] [address]Rmq: 330) ve Date:2017-10-27 [address]Rnl: [id number] [phone] ()Tel: ([phone]) Name:[facility] [address] () () ULICES [place] [phone] () [address]MZ:
== END ==
PROVIDERS: Family Provider Nurse Practitioner Family; PCP Nurse Practitioner Family; Referring Provider Internal Medicine Rheumatology; Visit Provider Internal Medicine Rheumatology
DX: M06.4 Inflammatory polyarthropathy (principal); Z79.899 Other long term (current) drug therapy; M79.7 Fibromyalgia; K21.9 Gastro-esophageal reflux disease without esophagitis; J45.909 Unspecified asthma, uncomplicated; R51 Headache; E03.9 Hypothyroidism, unspecified; E78.5 Hyperlipidemia, unspecified; G47.33 Obstructive sleep apnea (adult) (pediatric)
CPT/HCPCS: 36415; 80053; 85025

== ENCOUNTER → 2018-11-12 15:59 | Outpatient (CLI) | payer BC, SELFPAY ==
[2018-11-12 17:40] LABS: Absolute Lymphocyte Count 3.13 X10^3/ul (0.83-4.51); Absolute Neutrophil Count 6.4 X10^3/uL (2.0-7.7); Basophil# 0.06 X10^3/uL; Basophil% 0.6 % (0-1); Hematocrit 41.7 % (37-47); Hemoglobin 13.3 g/dl (12.0-15.0); Lymphocyte # 3.13 X10^3/ul (4.0); Mean Corp Hgb Conc 31.9 g/gl (32-36); Mean Corpuscular Hgb 28.1 pg (27.0-32.0); Mean Corpuscular Volume 88.2 fL (81-99); Mean Platelet Vol. 10.8 fl (6.2-12.0); Monocyte# 0.79 X10^3/uL; Monocyte% 7.6 % (0-10); Neutrophil # 6.36 X10^3/uL (2.7-7.7); Neutrophil % 60.7 % (47-70); Platelet Count 446 K/mm3 (150-450); RBC Distribution Width CV 14.4 % (11.6-14.6); RBC Distribution Width SD 45.2 fl (35.1-43.9); Red Blood Count 4.73 M/mm3 (4.2-5.4); White Blood Count 10.5 K/mm3 (4.4-11.0)
[2018-11-12 17:41] LABS: POSITIVE COUNT NO; POSITIVE DIFFERENTIAL NO; POSITIVE MORPHOLOGY NO
[2018-11-12 17:50] LABS: ALB/GLOB Ratio 0.8 RATIO (0.9-2.4); AST(SGOT) 24 U/L (15-37); Alanine Aminotransfer ALT/SGPT 43 U/L (13-56); Albumin, Serum 3.5 g/dL (3.2-5.0); Alkaline Phosphatase 86 U/L (45-117); Anion Gap 5 (5-15); BUN 16 mg/dL (7-18); BUN/Creat Ratio 16.5 RATIO (10-20); Calcium,Total 8.5 mg/dL (8.5-10.1); Chloride 104 mmol/L (98-107); Creatinine, Serum 0.97 mg/dL (0.55-1.02); EST Glomerular Filtration Rate 67 mL/min (>60); Est Glom Filt Rate - Afr Amer 81 mL/min (>60); Globulin 4.2 g/dL (2.2-4.2); Glucose 93 mg/dL (74-106); Potassium 4.2 mmol/L (3.5-5.1); Protein, Total 7.7 g/dL (6.4-8.2); Sodium Level 137 mmol/L (136-145)
== END ==
PROVIDERS: Family Provider Nurse Practitioner Family; PCP Nurse Practitioner Family; Referring Provider Internal Medicine Rheumatology; Visit Provider Internal Medicine Rheumatology
DX: M06.4 Inflammatory polyarthropathy (principal); Z79.899 Other long term (current) drug therapy; M79.7 Fibromyalgia; K21.9 Gastro-esophageal reflux disease without esophagitis; J45.909 Unspecified asthma, uncomplicated; R51 Headache; E03.9 Hypothyroidism, unspecified; E78.5 Hyperlipidemia, unspecified; G47.33 Obstructive sleep apnea (adult) (pediatric)
CPT/HCPCS: 36415; 80053; 85025

== ENCOUNTER → 2019-02-10 | Outpatient (CLI) | payer BC, SELFPAY ==
[2019-02-10 17:59] LABS: Absolute Lymphocyte Count 2.26 X10^3/uL (0.83-4.51); Absolute Neutrophil Count 7.6 X10^3/uL (2.0-7.7); Basophil# 0.07 X10^3/uL; Basophil% 0.6 % (0-1); Eosinophil# 0.21 X10^3/uL; Eosinophils% 1.9 % (0-5); Hematocrit 42.3 % (37-47); Hemoglobin 13.2 g/dL (12.0-15.0); Lymphocyte # 2.26 X10^3/ul (4.0); Lymphocyte % 20.8 % (19-41); Mean Corp Hgb Conc 31.2 g/dL (32-36); Mean Corpuscular Hgb 28.3 pg (27.0-32.0); Mean Corpuscular Volume 90.8 fL (81-99); Mean Platelet Vol. 10.3 fl (6.2-12.0); Monocyte# 0.69 X10^3/uL; Monocyte% 6.3 % (0-10); NRBC Flagged by Analyzer 0 % (0-5); Neutrophil # 7.62 X10^3/uL (2.7-7.7); Platelet Count 437 K/mm3 (150-450); RBC Distribution Width CV 14.6 % (11.6-14.6); RBC Distribution Width SD 47.9 fl (35.1-43.9); Red Blood Count 4.66 M/mm3 (4.2-5.4); White Blood Count 10.9 K/mm3 (4.4-11.0)
[2019-02-10 18:06] LABS: ALB/GLOB Ratio 0.8 RATIO (0.9-2.4); AST(SGOT) 23 U/L (15-37); Alanine Aminotransfer ALT/SGPT 46 U/L (13-56); Albumin, Serum 3.4 g/dL (3.2-5.0); Alkaline Phosphatase 87 U/L (45-117); Anion Gap 3 (5-15); BUN 14 mg/dL (7-18); BUN/Creat Ratio 14.1 RATIO (10-20); Chloride 107 mmol/L (98-107); Creatinine, Serum 0.99 mg/dL (0.55-1.02); EST Glomerular Filtration Rate 65 mL/min (>60); Est Glom Filt Rate - Afr Amer 78 mL/min (>60); Glucose 115 mg/dL (74-106); Potassium 3.7 mmol/L (3.5-5.1); Protein, Total 7.4 g/dL (6.4-8.2); Sodium Level 139 mmol/L (136-145)
== END | disposition home or self-care (01) ==
LOC: MTLAB 16:00
PROVIDERS: Family Provider Nurse Practitioner Family; PCP Nurse Practitioner Family; Referring Provider Internal Medicine Rheumatology; Visit Provider Internal Medicine Rheumatology
DX: M06.4 Inflammatory polyarthropathy (principal); Z79.899 Other long term (current) drug therapy; M79.7 Fibromyalgia; K21.9 Gastro-esophageal reflux disease without esophagitis; J45.909 Unspecified asthma, uncomplicated; R51 Headache; E03.9 Hypothyroidism, unspecified; E78.5 Hyperlipidemia, unspecified; G47.33 Obstructive sleep apnea (adult) (pediatric)
CPT/HCPCS: 36415; 80053; 85025

== ENCOUNTER → 2019-06-16 15:22 | Outpatient (CLI) | payer BC, SELFPAY ==
[2019-06-16 17:29] LABS: Absolute Lymphocyte Count 2.98 X10^3/uL (0.83-4.51); Absolute Neutrophil Count 4.7 X10^3/uL (2.0-7.7); Basophil# 0.06 X10^3/uL; Basophil% 0.7 % (0-1); Eosinophil# 0.14 X10^3/uL; Eosinophils% 1.7 % (0-5); Hematocrit 40.4 % (37-47); Hemoglobin 12.3 g/dL (12.0-15.0); Lymphocyte # 2.98 X10^3/ul (4.0); Lymphocyte % 35.3 % (19-41); Mean Corp Hgb Conc 30.4 g/dL (32-36); Mean Corpuscular Hgb 28.1 pg (27.0-32.0); Mean Corpuscular Volume 92.2 fL (81-99); Mean Platelet Vol. 10.8 fl (6.2-12.0); Monocyte# 0.53 X10^3/uL; Monocyte% 6.3 % (0-10); NRBC Flagged by Analyzer 0 % (0-5); Neutrophil # 4.72 X10^3/uL (2.7-7.7); Neutrophil % 55.8 % (47-70); Platelet Count 412 K/mm3 (150-450); RBC Distribution Width CV 13.6 % (11.6-14.6); RBC Distribution Width SD 45.9 fl (35.1-43.9); Red Blood Count 4.38 M/mm3 (4.2-5.4); White Blood Count 8.5 K/mm3 (4.4-11.0)
[2019-06-16 17:44] LABS: ALB/GLOB Ratio 0.9 RATIO (0.9-2.4); AST(SGOT) 21 U/L (15-37); Alanine Aminotransfer ALT/SGPT 38 U/L (13-56); Albumin, Serum 3.4 g/dL (3.2-5.0); Alkaline Phosphatase 83 U/L (45-117); Anion Gap 7 (5-15); BUN 18 mg/dL (7-18); BUN/Creat Ratio 16.8 RATIO (10-20); Chloride 105 mmol/L (98-107); Creatinine, Serum 1.07 mg/dL (0.55-1.02); EST Glomerular Filtration Rate 59 mL/min (>60); Est Glom Filt Rate - Afr Amer 72 mL/min (>60); Globulin 3.9 g/dL (2.2-4.2); Glucose 89 mg/dL (74-106); Potassium 3.9 mmol/L (3.5-5.1); Protein, Total 7.3 g/dL (6.4-8.2); Sodium Level 141 mmol/L (136-145)
== END ==
PROVIDERS: Family Provider Nurse Practitioner Family; PCP Nurse Practitioner Family; Referring Provider Internal Medicine Rheumatology; Visit Provider Internal Medicine Rheumatology
DX: M06.4 Inflammatory polyarthropathy (principal); Z79.899 Other long term (current) drug therapy; M79.7 Fibromyalgia; K21.9 Gastro-esophageal reflux disease without esophagitis; J45.909 Unspecified asthma, uncomplicated; R51 Headache; E03.9 Hypothyroidism, unspecified; E78.5 Hyperlipidemia, unspecified; G47.33 Obstructive sleep apnea (adult) (pediatric)
CPT/HCPCS: 36415; 80053; 85025

== ENCOUNTER → 2019-07-17 09:00 | Outpatient (CLI) | payer BC, SELFPAY ==
[2019-07-17 10:03] LABS: ALB/GLOB Ratio 0.9 RATIO (0.9-2.4); AST(SGOT) 17 U/L (15-37); Alanine Aminotransfer ALT/SGPT 23 U/L (13-56); Albumin, Serum 3.6 g/dL (3.2-5.0); Alkaline Phosphatase 83 U/L (45-117); Anion Gap 3 (5-15); BUN 14 mg/dL (7-18); Chloride 110 mmol/L (98-107); Cholesterol 180 mg/dL (200); Creatinine, Serum 0.87 mg/dL (0.55-1.02); EST Glomerular Filtration Rate 75 mL/min (>60); Est Glom Filt Rate - Afr Amer 90 mL/min (>60); Globulin 4.1 g/dL (2.2-4.2); Glucose 91 mg/dL (74-106); High Density Lipoprotein 56 mg/dL; Potassium 4.2 mmol/L (3.5-5.1); Protein, Total 7.7 g/dL (6.4-8.2); Sodium Level 142 mmol/L (136-145); T4 Free Direct 1.07 ng/dL (0.76-1.46); Thyroid Stim Hormone (TSH) 2.96 uIU/mL (0.358-3.74); Triglycerides 140 mg/dL; Very Low Density Lipoprotein 28 mg/dL (5-40)
== END ==
PROVIDERS: Family Provider Nurse Practitioner Family; PCP Nurse Practitioner Family; Referring Provider Nurse Practitioner Family; Visit Provider Nurse Practitioner Family
DX: E03.9 Hypothyroidism, unspecified (principal); E78.5 Hyperlipidemia, unspecified
CPT/HCPCS: 36415; 80053; 80061; 84439; 84443

== ENCOUNTER → 2019-09-16 15:34 | Outpatient (CLI) | payer BC, SELFPAY ==
[2019-09-16 17:36] LABS: Absolute Lymphocyte Count 2.51 X10^3/uL (0.83-4.51); Absolute Neutrophil Count 5.2 X10^3/uL (2.0-7.7); Basophil# 0.07 X10^3/uL; Basophil% 0.8 % (0-1); Eosinophils% 2.3 % (0-5); Hemoglobin 12.6 g/dL (12.0-15.0); Lymphocyte # 2.51 X10^3/ul (4.0); Lymphocyte % 29.1 % (19-41); Mean Corp Hgb Conc 31.5 g/dL (32-36); Mean Platelet Vol. 10.1 fl (6.2-12.0); Monocyte# 0.63 X10^3/uL; Monocyte% 7.3 % (0-10); NRBC Flagged by Analyzer 0 % (0-5); Neutrophil # 5.19 X10^3/uL (2.7-7.7); Neutrophil % 60.2 % (47-70); Platelet Count 451 K/mm3 (150-450); RBC Distribution Width CV 14.6 % (11.6-14.6); RBC Distribution Width SD 48.1 fl (35.1-43.9); Red Blood Count 4.35 M/mm3 (4.2-5.4); White Blood Count 8.6 K/mm3 (4.4-11.0)
[2019-09-16 17:51] LABS: ALB/GLOB Ratio 0.9 RATIO (0.9-2.4); AST(SGOT) 21 U/L (15-37); Alanine Aminotransfer ALT/SGPT 44 U/L (13-56); Albumin, Serum 3.5 g/dL (3.2-5.0); Alkaline Phosphatase 93 U/L (45-117); Anion Gap 6 (5-15); BUN 20 mg/dL (7-18); BUN/Creat Ratio 19.8 RATIO (10-20); Calcium,Total 8.8 mg/dL (8.5-10.1); Chloride 106 mmol/L (98-107); Creatinine, Serum 1.01 mg/dL (0.55-1.02); EST Glomerular Filtration Rate 63 mL/min (>60); Est Glom Filt Rate - Afr Amer 76 mL/min (>60); Globulin 4.1 g/dL (2.2-4.2); Glucose 71 mg/dL (74-106); Potassium 3.9 mmol/L (3.5-5.1); Protein, Total 7.6 g/dL (6.4-8.2); Sodium Level 140 mmol/L (136-145)
== END ==
PROVIDERS: PCP Nurse Practitioner Family; Referring Provider Internal Medicine Rheumatology; Visit Provider Internal Medicine Rheumatology
DX: M06.4 Inflammatory polyarthropathy (principal); Z79.899 Other long term (current) drug therapy; M79.7 Fibromyalgia; K21.9 Gastro-esophageal reflux disease without esophagitis; J45.909 Unspecified asthma, uncomplicated; R51 Headache; E03.9 Hypothyroidism, unspecified; E78.5 Hyperlipidemia, unspecified; G47.33 Obstructive sleep apnea (adult) (pediatric)
CPT/HCPCS: 36415; 80053; 85025

== ENCOUNTER → 2019-12-02 09:57 | Outpatient (CLI) | payer BC, SELFPAY ==
[2019-12-02 12:21] LABS: Absolute Lymphocyte Count 2.08 X10^3/uL (0.83-4.51); Absolute Neutrophil Count 3.9 X10^3/uL (2.0-7.7); Basophil# 0.06 X10^3/uL; Basophil% 0.9 % (0-1); Eosinophil# 0.11 X10^3/uL; Eosinophils% 1.6 % (0-5); Hematocrit 43.5 % (37-47); Hemoglobin 13.3 g/dL (12.0-15.0); Lymphocyte # 2.08 X10^3/ul (4.0); Lymphocyte % 30.4 % (19-41); Mean Corp Hgb Conc 30.6 g/dL (32-36); Mean Corpuscular Hgb 28.7 pg (27.0-32.0); Monocyte# 0.65 X10^3/uL; Monocyte% 9.5 % (0-10); NRBC Flagged by Analyzer 0 % (0-5); Neutrophil # 3.92 X10^3/uL (2.7-7.7); Neutrophil % 57.2 % (47-70); Platelet Count 430 K/mm3 (150-450); RBC Distribution Width CV 14.1 % (11.6-14.6); RBC Distribution Width SD 47.2 fl (35.1-43.9); Red Blood Count 4.63 M/mm3 (4.2-5.4); White Blood Count 6.9 K/mm3 (4.4-11.0)
[2019-12-02 12:31] LABS: ALB/GLOB Ratio 0.9 RATIO (0.9-2.4); AST(SGOT) 16 U/L (15-37); Alanine Aminotransfer ALT/SGPT 29 U/L (13-56); Albumin, Serum 3.5 g/dL (3.2-5.0); Alkaline Phosphatase 78 U/L (45-117); Anion Gap 5 (5-15); BUN 15 mg/dL (7-18); BUN/Creat Ratio 18.4 RATIO (10-20); Calcium,Total 9.1 mg/dL (8.5-10.1); Chloride 106 mmol/L (98-107); Creatinine, Serum 0.82 mg/dL (0.55-1.02); EST Glomerular Filtration Rate 81 mL/min (>60); Est Glom Filt Rate - Afr Amer 98 mL/min (>60); Globulin 4.1 g/dL (2.2-4.2); Glucose 91 mg/dL (74-106); Potassium 4.5 mmol/L (3.5-5.1); Protein, Total 7.6 g/dL (6.4-8.2); Sodium Level 139 mmol/L (136-145)
== END ==
PROVIDERS: PCP Nurse Practitioner Family; Referring Provider Internal Medicine Rheumatology; Visit Provider Internal Medicine Rheumatology
DX: M06.4 Inflammatory polyarthropathy (principal); Z79.899 Other long term (current) drug therapy; M79.7 Fibromyalgia; M18.11 Unilateral primary osteoarthritis of first carpometacarpal joint, right hand; K21.9 Gastro-esophageal reflux disease without esophagitis; J45.909 Unspecified asthma, uncomplicated; R51 Headache; E03.9 Hypothyroidism, unspecified; E78.5 Hyperlipidemia, unspecified; G47.33 Obstructive sleep apnea (adult) (pediatric)
CPT/HCPCS: 36415; 80053; 85025

== ENCOUNTER 2020-01-14 15:21 | Emergency (ER) | payer BC, SELFPAY ==
[2020-01-14 15:22] VITALS: BP 126/81; PULSE 65; RESP 22; TEMP 36.9; O2SAT 95; BMI 44.9
--- NOTE | 2020-01-14 15:39 | EKG12_ITS ---
Test Reason : CP Blood Pressure : / mmHG Vent. Rate : 061 BPM Atrial Rate : 061 BPM P-R Int : 158 ms QRS Dur : 092 ms QT Int : 440 ms P-R-T Axes : 035 -16 002 degrees QTc Int : 442 ms Normal sinus rhythm Normal ECG Confirmed by BHAVESH VILA, MARYELLEN ([id number]), story editor DANIEL REES ([id number]) on 01/18/2020 10:45:00 AM Referred By: DC Confirmed By:MARYELLEN OSPINA MD
[2020-01-14 15:56] LABS: Absolute Neutrophil Count 4.3 X10^3/uL (2.0-7.7); Basophil# 0.07 X10^3/uL; Basophil% 0.9 % (0-1); Eosinophil# 0.17 X10^3/uL; Eosinophils% 2.1 % (0-5); Hematocrit 40.9 % (37-47); Lymphocyte % 31.5 % (19-41); Mean Corp Hgb Conc 31.8 g/dL (32-36); Mean Corpuscular Hgb 28.8 pg (27.0-32.0); Mean Corpuscular Volume 90.5 fL (81-99); Mean Platelet Vol. 10.2 fl (6.2-12.0); Monocyte# 0.87 X10^3/uL; NRBC Flagged by Analyzer 0 % (0-5); Neutrophil # 4.31 X10^3/uL (2.7-7.7); Neutrophil % 54.2 % (47-70); Platelet Count 428 K/mm3 (150-450); RBC Distribution Width CV 13.6 % (11.6-14.6); RBC Distribution Width SD 44.6 fl (35.1-43.9); Red Blood Count 4.52 M/mm3 (4.2-5.4); White Blood Count 7.9 K/mm3 (4.4-11.0)
[2020-01-14] MEDS: 0.9% Normal Saline 1,000 ML 1000 ML IV (15:58)
[2020-01-14] MEDS: Ondansetron 4 MG/2 ML Vial IV (15:59)
[2020-01-14] MEDS: Ketorolac 30 MG/ML Syringe 15 MG IV (16:00)
[2020-01-14 16:02] LABS: ALB/GLOB Ratio 0.9 RATIO (0.9-2.4); AST(SGOT) 16 U/L (15-37); Alanine Aminotransfer ALT/SGPT 33 U/L (13-56); Albumin, Serum 3.7 g/dL (3.2-5.0); Alkaline Phosphatase 83 U/L (45-117); Anion Gap 7 (5-15); BUN 14 mg/dL (7-18); BUN/Creat Ratio 17.7 RATIO (10-20); Calcium,Total 9.2 mg/dL (8.5-10.1); Chloride 105 mmol/L (98-107); Creatinine, Serum 0.79 mg/dL (0.55-1.02); EST Glomerular Filtration Rate 84 mL/min (>60); Est Glom Filt Rate - Afr Amer 101 mL/min (>60); Estimated Creatinine Clearance 78.47 ml/min; Globulin 4.1 g/dL (2.2-4.2); Glucose 89 mg/dL (74-106); Lipase 181 U/L (73-393); Potassium 3.9 mmol/L (3.5-5.1); Protein, Total 7.8 g/dL (6.4-8.2); Sodium Level 139 mmol/L (136-145)
--- NOTE | 2020-01-14 16:02 | RAD_ITS ---
STUDY: X-RAY CHEST REASON FOR EXAM: Female, 44 years old. chest pain x 2 weeks TECHNIQUE: 1 view COMPARISON: None. FINDINGS: The lungs are clear and expanded. There is no demonstrated pleural abnormality. Normal size heart. Normal mediastinum and viral. Normal visualized pulmonary arteries. Normal visualized aortic arch and descending thoracic aorta. Normal visualized thoracic spine. Normal visualized ribs, clavicles, and shoulders. There is no demonstrated abnormality of the visualized soft tissue structures of the upper abdomen. RAD/Chest 1 View IMPRESSION: Normal x-ray examination of the chest. Electronically Signed: Barb Quiroga MD at 16:15 EDT , Service support ,
--- NOTE | 2020-01-14 16:32 | ED.DCSUM_ITS ---
- ER Visit Summary Date of Service: 01/14/20 Chief Complaint: Chest pain History of Present Illness: The patient is a 44 F who sees Rasheed Gonzalez. She reports that she has chest pain that began 2 weeks ago. Initially was an intermittent pain that would last hours at a time. Is been constant for the past 9 hours now. She describes it as sharp, throbbing pain is 1010 at worst and 6 out of 10 currently. Its worsened by breathing. Is relieved by rest and relaxing. States that there is no change with exertion or movement of her arms or torso. She reports she has been nauseated at times vomited 2 days ago. She has not vomited since. She has been a little bit short of breath and diaphoretic at times. She is had similar symptoms previously, but not this severe. Patient reports she is had upper lower abdominal pain is been constant for the past 2 days. She described this is an aching pain is 4-10 in severity. She reports has had 2 episodes of diarrhea today. No blood in her stools or black tarry stools. She denies any other complaints. Physical Examination: Vitals: Stable. Afebrile. General: Well-nourished and well-developed. Head: Normocephalic atraumatic. Neck: Supple, no lymphadenopathy. No JVD. Nontender. Cardiovascular: Regular rate and rhythm. No murmurs. Respiratory: No respiratory distress. Clear to auscultation bilaterally. Moderate tenderness palpation over the right costochondral margin that does reproduce her pain. Abdominal: Soft, mild epigastric tenderness palpation, nondistended, normal bowel sounds. No guarding, rebound, or peritoneal signs. Back: Nontender. Extremities: Nontender, no edema. Skin: Normal color, no rash. Neurologic: Alert and oriented ?3. Cranial nerves II through XII are intact. Normal strength and sensation. Psych: Normal affect. Test Results: EKG is sinus at 61 with a T wave inversion lead III. No acute changes. Troponin is negative despite 9 hours of constant pain. LFTs are normal. Lipase normal. Chem-7 is normal. CBC is normal. Clinical Impression(s) from Imaging Studies Chest X-Ray 01/14/20 16:02 IMPRESSION: Normal x-ray examination of the chest. Electronically Signed: Barb Quiroga MD at 16:15 EDT , Service support , Emergency Department Course and Treatment: Patient was given a dose of Toradol and Zofran IV. She is resting comfortably. Treatment Plan: Patient will be discharged instructions continue her Pepcid. Use Tylenol for pain. Follow-up with her primary care physician 1 to 2 days if not improving. Return to the emergency department for any worsening symptoms. Disposition: To home in improved and stable condition. Impression: 1. Atypical chest pain. 2. Abdominal pain, uncertain cause. This note was generated with IntelliWheelsation software. It may contain incorrect words, spelling, and punctuation that were not noted in review of the chart prior to signing ED Disposition - Plan for ED Patient: Disposition: Home or Assisted Living Instructions: ED Chest Pain Atypical Unkn Cause Referrals: Chano Gomez, EMERGENCY DOCTOR-C [Primary Care Provider] - As soon as possible
[2020-01-14 16:46] VITALS: BP 104/66; PULSE 55; RESP 16; O2SAT 100
== END 2020-01-14 16:47 | disposition home or self-care (01) ==
LOC: ED 16:00
PROVIDERS: Emergency Provider Emergency Medicine; PCP Nurse Practitioner Family
DX: R07.89 Other chest pain (principal); R10.30 Lower abdominal pain, unspecified; R19.7 Diarrhea, unspecified; R06.02 Shortness of breath; R11.2 Nausea with vomiting, unspecified
CPT/HCPCS: 71045; 80053; 83690; 84484; 85025; 93005; 96361; 96374; 96375; 99282; J2405

== ENCOUNTER → 2020-02-07 14:33 | Outpatient (CLI) | payer BC, SELFPAY ==
[2020-01-14 15:22] VITALS: BMI 44.9
--- NOTE | 2020-02-07 14:35 | ECHOD_ITS ---
Reason For Study: Chest Pain Procedure This was a 2D Doppler, Color Flow transthoracic echocardiogram. Exam performed in department. Left Ventricle Normal LV size. Left ventricular systolic function is normal. The estimated ejection fraction is 55 %. Normal diastology for age. No regional wall motion abnormalities noted. Right Ventricle Normal RV size. Normal systolic function. Atria Normal left atrium. Normal right atrium. Mitral Valve Normal mitral valve. Tricuspid Valve Normal tricuspid valve. Mild (1+) tricuspid valve insufficiency. Pulmonary artery systolic pressure is 34 mmHg. Aortic Valve Normal aortic valve. Trisinus/trileaflet aortic valve. Pulmonic Valve Normal pulmonic valve. Great Vessels Normal aortic root. The pulmonary artery is normal size. Normal inferior vena cava. Pericardium/Pleural No pericardial effusion. MMode/2D Measurements & Calculations LVIDd: 5.0 cm IVSd: 0.96 cm Ao root diam: 2.9 cm LVIDs: 2.8 cm LVPWd: 1.0 cm RVDd: 3.9 cm FS: 43.8 % LAV(MOD-bp): 63.7 ml LVAd ap4: 28.8 cm2 SV(MOD-sp4): 57.6 ml LAV(MOD-bp) Indexed: 28.8 ml/m2 EDV(MOD-sp4): 86.2 ml LAV(MOD-sp2): 52.8 ml EDV(sp4-el): 91.2 ml LAV(MOD-sp4): 70.5 ml LVAs ap4: 14.4 cm2 ESV(MOD-sp4): 28.7 ml ESV(sp4-el): 29.2 ml EF(MOD-sp4): 66.7 % EF(sp4-el): 67.9 % SV(sp4-el): 61.9 ml LA A4 area: 22.3 cm2 LA dimension(2D): 4.3 cm RA A4 area: 13.0 cm2 Doppler Measurements & Calculations MV E max clay: 85.7 cm/sec Lat Peak E' Clay: 11.6 cm/sec Med Peak E' Clay: 8.4 cm/sec MV A max clay: 55.1 cm/sec E/E' lat: 7.4 E/E' med: 10.2 MV E/A: 1.6 Ao V2 max: 119.1 cm/sec LV V1 max: 85.7 cm/sec PA V2 max: 100.2 cm/sec Ao max P.7 mmHg LV V1 max P.9 mmHg Ao V2 mean: 81.8 cm/sec Ao mean P.0 mmHg Ao V2 VTI: 27.8 cm TR max clay: 279.8 cm/sec TR max P.3 mmHg Interpretation Summary Normal LV size. Left ventricular systolic function is normal. The estimated ejection fraction is 55 %. Normal diastology for age. Pulmonary artery systolic pressure is 34 mmHg. Ordering Physician: Chano Gomez Referring Physician: Chano Gomez Performed By: Buffy Amador, PENNIE, RVT
== END ==
LOC: CVS 14:34
PROVIDERS: PCP Nurse Practitioner Family; Referring Provider Nurse Practitioner Family; Visit Provider Nurse Practitioner Family
DX: R07.9 Chest pain, unspecified (principal)
CPT/HCPCS: 93306

== ENCOUNTER → 2020-02-23 16:23 | Outpatient (CLI) | payer BC, SELFPAY ==
[2020-02-23 12:54] VITALS: BMI 44.4
[2020-02-23 17:04] LABS: Absolute Lymphocyte Count 2.07 X10^3/uL (0.83-4.51); Absolute Neutrophil Count 4.9 X10^3/uL (2.0-7.7); Basophil# 0.05 X10^3/uL; Basophil% 0.6 % (0-1); Eosinophil# 0.18 X10^3/uL; Eosinophils% 2.3 % (0-5); Hematocrit 41.8 % (37-47); Hemoglobin 12.9 g/dL (12.0-15.0); Lymphocyte # 2.07 X10^3/ul (4.0); Lymphocyte % 26.3 % (19-41); Mean Corp Hgb Conc 30.9 g/dL (32-36); Mean Corpuscular Hgb 28.4 pg (27.0-32.0); Mean Corpuscular Volume 91.9 fL (81-99); Mean Platelet Vol. 10.2 fl (6.2-12.0); Monocyte% 8.9 % (0-10); NRBC Flagged by Analyzer 0 % (0-5); Neutrophil # 4.85 X10^3/uL (2.7-7.7); Neutrophil % 61.5 % (47-70); Platelet Count 403 K/mm3 (150-450); RBC Distribution Width CV 13.8 % (11.6-14.6); RBC Distribution Width SD 46.2 fl (35.1-43.9); Red Blood Count 4.55 M/mm3 (4.2-5.4); White Blood Count 7.9 K/mm3 (4.4-11.0)
[2020-02-23 17:27] LABS: Anion Gap 3 (5-15); BUN 16 mg/dL (7-18); BUN/Creat Ratio 18.3 RATIO (10-20); Chloride 106 mmol/L (98-107); Creatinine, Serum 0.88 mg/dL (0.55-1.02); EST Glomerular Filtration Rate 74 mL/min (>60); Est Glom Filt Rate - Afr Amer 90 mL/min (>60); Glucose 89 mg/dL (74-106); Sodium Level 139 mmol/L (136-145)
== END ==
PROVIDERS: PCP Nurse Practitioner Family; Referring Provider Internal Medicine Cardiovascular Disease; Visit Provider Internal Medicine Cardiovascular Disease
DX: R07.9 Chest pain, unspecified (principal)
CPT/HCPCS: 36415; 80048; 85025

== ENCOUNTER 2020-02-28 07:30 | Day surgery (SDC) | payer BC, SELFPAY ==
[2020-02-23 12:54] VITALS: BMI 44.4
[2020-02-25 08:05] VITALS: BMI 44.4
[2020-02-28 08:13] LABS: Hematocrit 43.6 % (37-47); Hemoglobin 13.3 g/dL (12.0-15.0); Mean Corp Hgb Conc 30.5 g/dL (32-36); Mean Corpuscular Hgb 27.8 pg (27.0-32.0); Mean Corpuscular Volume 91.2 fL (81-99); Mean Platelet Vol. 10.5 fl (6.2-12.0); Platelet Count 402 K/mm3 (150-450); RBC Distribution Width CV 13.6 % (11.6-14.6); RBC Distribution Width SD 45.6 fl (35.1-43.9); Red Blood Count 4.78 M/mm3 (4.2-5.4); White Blood Count 8.2 K/mm3 (4.4-11.0)
[2020-02-28 08:39] LABS: ALB/GLOB Ratio 0.9 RATIO (0.9-2.4); AST(SGOT) 17 U/L (15-37); Alanine Aminotransfer ALT/SGPT 31 U/L (13-56); Albumin, Serum 3.4 g/dL (3.2-5.0); Alkaline Phosphatase 80 U/L (45-117); Anion Gap 4 (5-15); BUN 16 mg/dL (7-18); BUN/Creat Ratio 19.8 RATIO (10-20); Calcium,Total 8.5 mg/dL (8.5-10.1); Chloride 109 mmol/L (98-107); Cholesterol 151 mg/dL (200); Creatinine, Serum 0.81 mg/dL (0.55-1.02); EST Glomerular Filtration Rate 81 mL/min (>60); Est Glom Filt Rate - Afr Amer 98 mL/min (>60); Estimated Creatinine Clearance 76.53 ml/min; Globulin 3.8 g/dL (2.2-4.2); Glucose 97 mg/dL (74-106); High Density Lipoprotein 53 mg/dL; Potassium 3.9 mmol/L (3.5-5.1); Protein, Total 7.2 g/dL (6.4-8.2); Sodium Level 141 mmol/L (136-145); T4 Free Direct 1.13 ng/dL (0.76-1.46); Thyroid Stim Hormone (TSH) 1.59 uIU/mL (0.358-3.74); Triglycerides 184 mg/dL; Very Low Density Lipoprotein 37 mg/dL (5-40)
--- NOTE | 2020-02-28 09:41 | CL.D_ITS ---
Patient Name: YRN PEREZ Study Date: 02/28/2020 Performing: Venancio Diaz MD Ht: 64.17 inches 163 cm : 1975 Wt: 257.94 lbs 117 kg Age: 44 Gender: female BSA: 2.18 PROCEDURE(S) PERFORMED LM30-IHM/COR/LV CLINICAL PROFILE AND INDICATIONS Indications: Suspected CAD Heart Failure: None Stress/Imaging Stress/Image Study Performed: No CAD Presentations: Unstable angina. CONCLUSIONS Normal coronary arteries Normal LV size, wall motion,and systolic function RECOMMENDATIONS Medical therapy Follow with PCP DESCRIPTION OF PROCEDURE The patient arrived to the procedure lab. The risks and benefits of the procedure as well as a full d escription of our services here and current unavailability of surgical backup were fully explained to the patient and/or their significant other prior to the catheterization. The Timeout was completed, verifying the correct patient and procedure. The patient's procedural site was prepped and draped in the usual fashion. Local anesthetic was given subcutaneously to right radial region with Lidocaine 2% . Using a modified Seldinger technique, arterial access was obtained via the right radial artery, a 6 Fr sheath was inserted. Right Coronary Artery selective angiography was then performed in multiple v iews using a 5 Fr. 4.0 [place] catheter. Left Coronary Artery selective angiography was performed in mu ltiple views using a 5 Fr. 4.0 [place] catheter. Left Ventriculography was performed in MEYER projection using a 5 Fr. Pigtail catheter. LV to AO pullback pressures were then recorded.The arterial sheath was pulled and a TR Band was applied for hemostasis CORONARY ANGIOGRAPHY DOMINANCE: Right Dominant LEFT HEART ASSESSMENT Left Ventricular Ejection Fraction: by LV Gram 60 % Normal LV wall motion Normal Left Ventricular systolic function Normal Left Ventricular systolic function LEFT MAIN: Angiographically normal LEFT ANTERIOR DESCENDING ARTERY: Angiographically normal CIRCUMFLEX ARTERY: Angiographically normal RIGHT CORONARY ARTERY: Angiographically normal COMPLICATIONS No Complications PROCEDURE MEDICATIONS Fentanyl 50 mcg IV Versed 1 mg IV Oxygen: 2 L/min via nasal cannula Heparin diluted in 23cc Heparinized saline. Patient given 10cc IA of this solution. 02/28/2020 09:10:3 7 Verapamil 2.5mg, Ntg 100mcgs, 2000 units of Heparin diluted in 23cc Heparinized saline. Patient give n 10cc IA of this solution. 02/28/2020 09:10:37 SUMMARY OF HEMODYNAMIC DATA Time AIR REST ECG 08:04:26 AO 116/81 (97) SA 09:12:14 LV 105/11, 12 09:24:18 LV 96/15, 27 09:24:24 LV 121/10, 21 09:25:30 LV 125/11, 11 09:25:37 LVp 126/10, 28 09:25:41 AOp 152/88 (116) 09:25:46 Signed By Venancio Diaz MD On 02/28/2020 09:40:49 Venancio Diaz MD
== END 2020-02-28 11:35 | disposition home or self-care (01) ==
PROVIDERS: PCP Nurse Practitioner Family; Referring Provider Internal Medicine Cardiovascular Disease; Visit Provider Internal Medicine Cardiovascular Disease
DX: R07.9 Chest pain, unspecified (principal); E78.5 Hyperlipidemia, unspecified; K21.9 Gastro-esophageal reflux disease without esophagitis; E03.9 Hypothyroidism, unspecified; E66.9 Obesity, unspecified; Z68.41 Body mass index [BMI] 40.0-44.9, adult; N81.4 Uterovaginal prolapse, unspecified; M06.9 Rheumatoid arthritis, unspecified; G47.33 Obstructive sleep apnea (adult) (pediatric); J45.909 Unspecified asthma, uncomplicated; Z79.82 Long term (current) use of aspirin; Z79.899 Other long term (current) drug therapy; Z87.891 Personal history of nicotine dependence
CPT/HCPCS: 36415; 80053; 80061; 84439; 84443; 85027; 93005; 93458; 99152; 99153; J7040; C1769; C1894; Q9967

== ENCOUNTER → 2020-06-12 14:58 | Outpatient (CLI) | payer BC, SELFPAY ==
[2020-02-25 08:05] VITALS: BMI 44.4
[2020-06-12 18:36] LABS: Absolute Lymphocyte Count 1.97 X10^3/uL (0.83-4.51); Absolute Neutrophil Count 4.9 X10^3/uL (2.0-7.7); Basophil# 0.05 X10^3/uL; Basophil% 0.7 % (0-1); Eosinophil# 0.12 X10^3/uL; Eosinophils% 1.6 % (0-5); Hematocrit 42.5 % (37-47); Hemoglobin 12.7 g/dL (12.0-15.0); Lymphocyte # 1.97 X10^3/ul (4.0); Lymphocyte % 25.6 % (19-41); Mean Corp Hgb Conc 29.9 g/dL (32-36); Mean Corpuscular Hgb 27.3 pg (27.0-32.0); Mean Corpuscular Volume 91.4 fL (81-99); Mean Platelet Vol. 10.3 fl (6.2-12.0); Monocyte# 0.68 X10^3/uL; Monocyte% 8.8 % (0-10); NRBC Flagged by Analyzer 0 % (0-5); Neutrophil # 4.85 X10^3/uL (2.7-7.7); Platelet Count 416 K/mm3 (150-450); RBC Distribution Width CV 14.1 % (11.6-14.6); RBC Distribution Width SD 46.7 fl (35.1-43.9); Red Blood Count 4.65 M/mm3 (4.2-5.4); White Blood Count 7.7 K/mm3 (4.4-11.0)
[2020-06-12 18:48] LABS: ALB/GLOB Ratio 0.9 RATIO (0.9-2.4); AST(SGOT) 22 U/L (15-37); Alanine Aminotransfer ALT/SGPT 40 U/L (13-56); Albumin, Serum 3.6 g/dL (3.2-5.0); Alkaline Phosphatase 87 U/L (45-117); Anion Gap 6 (5-15); BUN 17 mg/dL (7-18); BUN/Creat Ratio 15.2 RATIO (10-20); Chloride 106 mmol/L (98-107); Creatinine, Serum 1.12 mg/dL (0.55-1.02); EST Glomerular Filtration Rate 56 mL/min (>60); Est Glom Filt Rate - Afr Amer 68 mL/min (>60); Globulin 4.1 g/dL (2.2-4.2); Glucose 82 mg/dL (74-106); Potassium 4.1 mmol/L (3.5-5.1); Protein, Total 7.7 g/dL (6.4-8.2); Sodium Level 141 mmol/L (136-145)
== END ==
PROVIDERS: PCP Nurse Practitioner Family; Referring Provider Internal Medicine Rheumatology; Visit Provider Internal Medicine Rheumatology
DX: M06.4 Inflammatory polyarthropathy (principal); Z79.899 Other long term (current) drug therapy; M79.7 Fibromyalgia; M18.11 Unilateral primary osteoarthritis of first carpometacarpal joint, right hand; K21.9 Gastro-esophageal reflux disease without esophagitis; J45.909 Unspecified asthma, uncomplicated; R51.9 Headache, unspecified; E03.9 Hypothyroidism, unspecified; E78.5 Hyperlipidemia, unspecified; G47.33 Obstructive sleep apnea (adult) (pediatric)
CPT/HCPCS: 36415; 80053; 85025

== ENCOUNTER → 2020-07-31 14:56 | Outpatient (CLI) | payer BC, SELFPAY ==
[2020-02-25 08:05] VITALS: BMI 44.4
[2020-07-31 17:49] LABS: Absolute Lymphocyte Count 2.11 X10^3/uL (0.83-4.51); Absolute Neutrophil Count 7.1 X10^3/uL (2.0-7.7); Basophil# 0.06 X10^3/uL; Basophil% 0.6 % (0-1); Eosinophil# 0.12 X10^3/uL; Eosinophils% 1.2 % (0-5); Hematocrit 39.6 % (37-47); Hemoglobin 12.1 g/dL (12.0-15.0); Lymphocyte # 2.11 X10^3/ul (4.0); Lymphocyte % 20.7 % (19-41); Mean Corp Hgb Conc 30.6 g/dL (32-36); Mean Corpuscular Hgb 27.3 pg (27.0-32.0); Mean Corpuscular Volume 89.4 fL (81-99); Mean Platelet Vol. 10.3 fl (6.2-12.0); Monocyte# 0.72 X10^3/uL; Monocyte% 7.1 % (0-10); NRBC Flagged by Analyzer 0 % (0-5); Neutrophil # 7.13 X10^3/uL (2.7-7.7); Neutrophil % 70.1 % (47-70); Platelet Count 388 K/mm3 (150-450); RBC Distribution Width CV 14.1 % (11.6-14.6); Red Blood Count 4.43 M/mm3 (4.2-5.4); White Blood Count 10.2 K/mm3 (4.4-11.0)
[2020-07-31 18:18] LABS: ALB/GLOB Ratio 0.8 RATIO (0.9-2.4); AST(SGOT) 30 U/L (15-37); Alanine Aminotransfer ALT/SGPT 60 U/L (13-56); Albumin, Serum 3.4 g/dL (3.2-5.0); Alkaline Phosphatase 108 U/L (45-117); Anion Gap 7 (5-15); BUN 22 mg/dL (7-18); BUN/Creat Ratio 20.2 RATIO (10-20); Calcium,Total 8.9 mg/dL (8.5-10.1); Chloride 104 mmol/L (98-107); Creatinine, Serum 1.09 mg/dL (0.55-1.02); EST Glomerular Filtration Rate 58 mL/min (>60); Est Glom Filt Rate - Afr Amer 70 mL/min (>60); Globulin 4.1 g/dL (2.2-4.2); Glucose 72 mg/dL (74-106); Potassium 3.8 mmol/L (3.5-5.1); Protein, Total 7.5 g/dL (6.4-8.2); Sodium Level 138 mmol/L (136-145)
== END ==
PROVIDERS: PCP Nurse Practitioner Family; Referring Provider Internal Medicine Rheumatology; Visit Provider Internal Medicine Rheumatology
DX: M06.4 Inflammatory polyarthropathy (principal); Z79.899 Other long term (current) drug therapy; M79.7 Fibromyalgia; M18.11 Unilateral primary osteoarthritis of first carpometacarpal joint, right hand; K21.9 Gastro-esophageal reflux disease without esophagitis; J45.909 Unspecified asthma, uncomplicated; R51.9 Headache, unspecified; E03.9 Hypothyroidism, unspecified; E78.5 Hyperlipidemia, unspecified; G47.33 Obstructive sleep apnea (adult) (pediatric)
CPT/HCPCS: 36415; 80053; 85025

== ENCOUNTER → 2020-08-29 14:45 | Outpatient (CLI) | payer BC, SELFPAY ==
[2020-02-25 08:05] VITALS: BMI 44.4
[2020-08-29 18:02] LABS: Absolute Lymphocyte Count 2.04 X10^3/uL (0.83-4.51); Absolute Neutrophil Count 5.2 X10^3/uL (2.0-7.7); Basophil# 0.06 X10^3/uL; Basophil% 0.7 % (0-1); Eosinophil# 0.21 X10^3/uL; Eosinophils% 2.5 % (0-5); Hematocrit 39.9 % (37-47); Hemoglobin 12.2 g/dL (12.0-15.0); Lymphocyte # 2.04 X10^3/ul (4.0); Lymphocyte % 24.6 % (19-41); Mean Corp Hgb Conc 30.6 g/dL (32-36); Mean Corpuscular Volume 91.7 fL (81-99); Mean Platelet Vol. 10.5 fl (6.2-12.0); Monocyte% 9.7 % (0-10); NRBC Flagged by Analyzer 0 % (0-5); Neutrophil # 5.15 X10^3/uL (2.7-7.7); Neutrophil % 62.1 % (47-70); Platelet Count 390 K/mm3 (150-450); RBC Distribution Width CV 14.4 % (11.6-14.6); RBC Distribution Width SD 48.3 fl (35.1-43.9); Red Blood Count 4.35 M/mm3 (4.2-5.4); White Blood Count 8.3 K/mm3 (4.4-11.0)
[2020-08-29 18:24] LABS: ALB/GLOB Ratio 0.9 RATIO (0.9-2.4); AST(SGOT) 19 U/L (15-37); Alanine Aminotransfer ALT/SGPT 38 U/L (13-56); Albumin, Serum 3.4 g/dL (3.2-5.0); Alkaline Phosphatase 95 U/L (45-117); Anion Gap 4 (5-15); BUN 20 mg/dL (7-18); BUN/Creat Ratio 24.9 RATIO (10-20); Chloride 107 mmol/L (98-107); Cholesterol 182 mg/dL (200); EST Glomerular Filtration Rate 82 mL/min (>60); Est Glom Filt Rate - Afr Amer 99 mL/min (>60); Globulin 3.9 g/dL (2.2-4.2); Glucose 78 mg/dL (74-106); High Density Lipoprotein 48 mg/dL; Potassium 3.8 mmol/L (3.5-5.1); Protein, Total 7.3 g/dL (6.4-8.2); Sodium Level 140 mmol/L (136-145); T4 Free Direct 1.06 ng/dL (0.76-1.46); Thyroid Stim Hormone (TSH) 2.13 uIU/mL (0.358-3.74); Triglycerides 363 mg/dL; Very Low Density Lipoprotein 73 mg/dL (5-40)
== END ==
PROVIDERS: PCP Nurse Practitioner Family; Referring Provider Internal Medicine Rheumatology; Visit Provider Internal Medicine Rheumatology
DX: E78.5 Hyperlipidemia, unspecified (principal); E03.9 Hypothyroidism, unspecified; M06.4 Inflammatory polyarthropathy; Z79.899 Other long term (current) drug therapy; M79.7 Fibromyalgia; M18.11 Unilateral primary osteoarthritis of first carpometacarpal joint, right hand; K21.9 Gastro-esophageal reflux disease without esophagitis; J45.909 Unspecified asthma, uncomplicated; R51.9 Headache, unspecified; G47.33 Obstructive sleep apnea (adult) (pediatric)
CPT/HCPCS: 36415; 80053; 80061; 84439; 84443; 85025

== ENCOUNTER → 2020-11-13 14:41 | Outpatient (CLI) | payer BC, SELFPAY ==
[2020-02-25 08:05] VITALS: BMI 44.4
[2020-11-13 17:55] LABS: Absolute Lymphocyte Count 2.33 X10^3/uL (0.83-4.51); Absolute Neutrophil Count 5.8 X10^3/uL (2.0-7.7); Basophil# 0.06 X10^3/uL; Basophil% 0.7 % (0-1); Eosinophil# 0.15 X10^3/uL; Eosinophils% 1.6 % (0-5); Hematocrit 42.6 % (37-47); Hemoglobin 12.8 g/dL (12.0-15.0); Lymphocyte # 2.33 X10^3/ul (0.83-4.51); Lymphocyte % 25.4 % (19-41); Mean Corpuscular Hgb 27.8 pg (27.0-32.0); Mean Corpuscular Volume 92.6 fL (81-99); Mean Platelet Vol. 10.5 fl (6.2-12.0); Monocyte# 0.84 X10^3/uL; Monocyte% 9.1 % (0-10); NRBC Flagged by Analyzer 0 % (0-5); Neutrophil # 5.78 X10^3/uL (2.7-7.7); Neutrophil % 62.9 % (47-70); Platelet Count 434 K/mm3 (150-450); RBC Distribution Width CV 14.5 % (11.6-14.6); RBC Distribution Width SD 48.8 fl (35.1-43.9); White Blood Count 9.2 K/mm3 (4.4-11.0)
[2020-11-13 17:56] LABS: ALB/GLOB Ratio 0.9 RATIO (0.9-2.4); AST(SGOT) 17 U/L (15-37); Alanine Aminotransfer ALT/SGPT 42 U/L (13-56); Albumin, Serum 3.6 g/dL (3.2-5.0); Alkaline Phosphatase 86 U/L (45-117); Anion Gap 6 (5-15); BUN 18 mg/dL (7-18); Chloride 105 mmol/L (98-107); EST Glomerular Filtration Rate 64 mL/min (>60); Est Glom Filt Rate - Afr Amer 77 mL/min (>60); Globulin 4.1 g/dL (2.2-4.2); Glucose 81 mg/dL (74-106); Protein, Total 7.7 g/dL (6.4-8.2); Sodium Level 140 mmol/L (136-145)
== END ==
PROVIDERS: PCP Nurse Practitioner Family; Referring Provider Internal Medicine Rheumatology; Visit Provider Internal Medicine Rheumatology
DX: M06.4 Inflammatory polyarthropathy (principal); Z79.899 Other long term (current) drug therapy; M79.7 Fibromyalgia; M18.11 Unilateral primary osteoarthritis of first carpometacarpal joint, right hand; K21.9 Gastro-esophageal reflux disease without esophagitis; J45.909 Unspecified asthma, uncomplicated; R51.9 Headache, unspecified; E03.9 Hypothyroidism, unspecified; E78.5 Hyperlipidemia, unspecified; G47.33 Obstructive sleep apnea (adult) (pediatric)
CPT/HCPCS: 36415; 80053; 85025

== ENCOUNTER → 2020-12-12 15:49 | Outpatient (CLI) | payer BC, SELFPAY ==
[2020-02-25 08:05] VITALS: BMI 44.4
[2020-12-12 17:35] LABS: Absolute Neutrophil Count 4.4 X10^3/uL (2.0-7.7); Basophil# 0.04 X10^3/uL; Basophil% 0.5 % (0-1); Eosinophil# 0.15 X10^3/uL; Hematocrit 40.7 % (37-47); Hemoglobin 12.5 g/dL (12.0-15.0); Lymphocyte % 28.7 % (19-41); Mean Corp Hgb Conc 30.7 g/dL (32-36); Mean Corpuscular Hgb 27.7 pg (27.0-32.0); Mean Corpuscular Volume 90.2 fL (81-99); Mean Platelet Vol. 10.7 fl (6.2-12.0); Monocyte# 0.57 X10^3/uL; Monocyte% 7.8 % (0-10); NRBC Flagged by Analyzer 0 % (0-5); Neutrophil # 4.43 X10^3/uL (2.7-7.7); Neutrophil % 60.6 % (47-70); Platelet Count 413 K/mm3 (150-450); RBC Distribution Width CV 14.3 % (11.6-14.6); Red Blood Count 4.51 M/mm3 (4.2-5.4); White Blood Count 7.3 K/mm3 (4.4-11.0)
[2020-12-12 17:51] LABS: ALB/GLOB Ratio 0.9 RATIO (0.9-2.4); AST(SGOT) 22 U/L (15-37); Alanine Aminotransfer ALT/SGPT 38 U/L (13-56); Albumin, Serum 3.5 g/dL (3.2-5.0); Alkaline Phosphatase 89 U/L (45-117); Anion Gap 6 (5-15); BUN 17 mg/dL (7-18); BUN/Creat Ratio 22.1 RATIO (10-20); Calcium,Total 8.5 mg/dL (8.5-10.1); Chloride 105 mmol/L (98-107); Cholesterol 192 mg/dL (200); Creatinine, Serum 0.77 mg/dL (0.55-1.02); EST Glomerular Filtration Rate 86 mL/min (>60); Est Glom Filt Rate - Afr Amer 104 mL/min (>60); Glucose 82 mg/dL (74-106); High Density Lipoprotein 53 mg/dL; Potassium 3.8 mmol/L (3.5-5.1); Protein, Total 7.5 g/dL (6.4-8.2); Sodium Level 139 mmol/L (136-145); T4 Free Direct 1.22 ng/dL (0.76-1.46); Thyroid Stim Hormone (TSH) 1.53 uIU/mL (0.358-3.74); Triglycerides 146 mg/dL; Very Low Density Lipoprotein 29 mg/dL (5-40)
[2020-12-21 17:15] LABS: Anti-Thyroglobulin AB 1.8 IU/mL (0.0-0.9); Thyroglobulin RIA 11 ng/mL (.); Thyroid Peroxidase AB 72 IU/mL (0-34)
== END ==
PROVIDERS: PCP Family Medicine; Referring Provider Family Medicine; Visit Provider Family Medicine
DX: E03.9 Hypothyroidism, unspecified (principal); E78.00 Pure hypercholesterolemia, unspecified
CPT/HCPCS: 36415; 80053; 80061; 84432; 84439; 84443; 85025; 86376; 86800

== ENCOUNTER → 2021-02-20 15:21 | Outpatient (CLI) | payer BC, SELFPAY ==
[2020-02-25 08:05] VITALS: BMI 44.4
[2021-02-20 17:43] LABS: Absolute Neutrophil Count 3.8 X10^3/uL (2.0-7.7); Basophil# 0.05 X10^3/uL; Basophil% 0.8 % (0-1); Eosinophil# 0.09 X10^3/uL; Eosinophils% 1.4 % (0-5); Hematocrit 40.2 % (37-47); Hemoglobin 12.7 g/dL (12.0-15.0); Lymphocyte % 30.3 % (19-41); Mean Corp Hgb Conc 31.6 g/dL (32-36); Mean Corpuscular Hgb 28.2 pg (27.0-32.0); Mean Corpuscular Volume 89.1 fL (81-99); Mean Platelet Vol. 10.5 fl (6.2-12.0); Monocyte# 0.46 X10^3/uL; Monocyte% 7.3 % (0-10); NRBC Flagged by Analyzer 0 % (0-5); Neutrophil # 3.76 X10^3/uL (2.7-7.7); Platelet Count 398 K/mm3 (150-450); RBC Distribution Width CV 13.8 % (11.6-14.6); RBC Distribution Width SD 44.5 fl (35.1-43.9); Red Blood Count 4.51 M/mm3 (4.2-5.4); White Blood Count 6.3 K/mm3 (4.4-11.0)
[2021-02-20 18:06] LABS: AST(SGOT) 22 U/L (15-37); Alanine Aminotransfer ALT/SGPT 40 U/L (13-56); Albumin, Serum 3.6 g/dL (3.2-5.0); Alkaline Phosphatase 67 U/L (45-117); Anion Gap 5 (5-15); BUN 13 mg/dL (7-18); Calcium,Total 8.9 mg/dL (8.5-10.1); Chloride 108 mmol/L (98-107); Creatinine, Serum 0.86 mg/dL (0.55-1.02); EST Glomerular Filtration Rate 75 mL/min (>60); Est Glom Filt Rate - Afr Amer 91 mL/min (>60); Globulin 3.7 g/dL (2.2-4.2); Glucose 76 mg/dL (74-106); Potassium 3.8 mmol/L (3.5-5.1); Protein, Total 7.3 g/dL (6.4-8.2); Sodium Level 141 mmol/L (136-145)
== END ==
PROVIDERS: PCP Family Medicine; Referring Provider Internal Medicine Rheumatology; Visit Provider Internal Medicine Rheumatology
DX: M06.4 Inflammatory polyarthropathy (principal); Z79.899 Other long term (current) drug therapy; M79.7 Fibromyalgia; M18.11 Unilateral primary osteoarthritis of first carpometacarpal joint, right hand; K21.9 Gastro-esophageal reflux disease without esophagitis; J45.909 Unspecified asthma, uncomplicated; R51.9 Headache, unspecified; E03.9 Hypothyroidism, unspecified; E78.5 Hyperlipidemia, unspecified; G47.33 Obstructive sleep apnea (adult) (pediatric)
CPT/HCPCS: 36415; 80053; 85025

== ENCOUNTER 2021-03-27 15:00 | Outpatient (RCR) | payer SELFPAY ==
[2020-02-25 08:05] VITALS: BMI 44.4
== END 2021-03-27 23:59 ==
LOC: NS 15:00
PROVIDERS: PCP Family Medicine; Visit Provider Family Medicine
DX: Z71.3 Dietary counseling and surveillance (principal); E66.01 Morbid (severe) obesity due to excess calories; Z68.41 Body mass index [BMI] 40.0-44.9, adult
CPT/HCPCS: 97802; 97803

== ENCOUNTER 2021-04-10 14:45 | Outpatient (RCR) | payer SELFPAY ==
[2021-03-28 00:16] VITALS: BMI 44.4
== END 2021-04-26 23:59 ==
LOC: NS 14:45
PROVIDERS: PCP Family Medicine; Visit Provider Family Medicine
DX: Z71.3 Dietary counseling and surveillance (principal); E66.01 Morbid (severe) obesity due to excess calories; Z68.41 Body mass index [BMI] 40.0-44.9, adult
CPT/HCPCS: 97803

== ENCOUNTER 2021-05-14 17:03 | Outpatient (RCR) | payer SELFPAY ==
[2021-04-27 00:12] VITALS: BMI 44.4
== END 2021-05-27 23:59 ==
LOC: NS 17:03
PROVIDERS: PCP Family Medicine; Visit Provider Family Medicine
DX: Z71.3 Dietary counseling and surveillance (principal); E66.01 Morbid (severe) obesity due to excess calories; Z68.41 Body mass index [BMI] 40.0-44.9, adult
CPT/HCPCS: 97803

== ENCOUNTER → 2021-05-15 15:01 | Outpatient (CLI) | payer BC, SELFPAY ==
[2021-05-15 18:07] LABS: Absolute Lymphocyte Count 2.11 X10^3/uL (0.83-4.51); Absolute Neutrophil Count 4.4 X10^3/uL (2.0-7.7); Basophil# 0.05 X10^3/uL; Basophil% 0.7 % (0-1); Eosinophils% 1.4 % (0-5); Hematocrit 38.7 % (37-47); Hemoglobin 12.3 g/dL (12.0-15.0); Lymphocyte # 2.11 X10^3/ul (0.83-4.51); Lymphocyte % 29.1 % (19-41); Mean Corp Hgb Conc 31.8 g/dL (32-36); Mean Corpuscular Hgb 28.1 pg (27.0-32.0); Mean Corpuscular Volume 88.4 fL (81-99); Mean Platelet Vol. 10.7 fl (6.2-12.0); Monocyte# 0.52 X10^3/uL; Monocyte% 7.2 % (0-10); NRBC Flagged by Analyzer 0 % (0-5); Neutrophil # 4.44 X10^3/uL (2.7-7.7); Neutrophil % 61.3 % (47-70); Platelet Count 378 K/mm3 (150-450); RBC Distribution Width CV 13.8 % (11.6-14.6); RBC Distribution Width SD 44.4 fl (35.1-43.9); Red Blood Count 4.38 M/mm3 (4.2-5.4); White Blood Count 7.2 K/mm3 (4.4-11.0)
[2021-05-15 18:57] LABS: ALB/GLOB Ratio 0.8 RATIO (0.9-2.4); AST(SGOT) 23 U/L (15-37); Alanine Aminotransfer ALT/SGPT 37 U/L (13-56); Albumin, Serum 3.1 g/dL (3.2-5.0); Alkaline Phosphatase 66 U/L (45-117); Anion Gap 10 (5-15); BUN 14 mg/dL (7-18); BUN/Creat Ratio 15.6 RATIO (10-20); Calcium,Total 8.6 mg/dL (8.5-10.1); Chloride 103 mmol/L (98-107); EST Glomerular Filtration Rate 72 mL/min (>60); Est Glom Filt Rate - Afr Amer 87 mL/min (>60); Glucose 69 mg/dL (74-106); Potassium 3.6 mmol/L (3.5-5.1); Protein, Total 7.1 g/dL (6.4-8.2); Sodium Level 138 mmol/L (136-145); T4 Free Direct 1.39 ng/dL (0.76-1.46); Thyroid Stim Hormone (TSH) 1.69 uIU/mL (0.358-3.74)
== END ==
PROVIDERS: PCP Family Medicine; Referring Provider Family Medicine; Visit Provider Family Medicine
DX: E03.8 Other specified hypothyroidism (principal); K21.9 Gastro-esophageal reflux disease without esophagitis
CPT/HCPCS: 36415; 80053; 84439; 84443; 85025

== ENCOUNTER → 2021-05-22 16:00 | Outpatient (CLI) | payer BC, SELFPAY ==
--- NOTE | 2021-05-22 16:03 | RAD_ITS ---
STUDY: X-RAY - RIGHT KNEE REASON FOR EXAM: Female, 46 years old. PAIN TECHNIQUE: 4 view(s) of the knee. COMPARISON: None. FINDINGS: Normal visualized distal femur. Normal visualized proximal tibia and fibula. Normal proximal tibiofibular articulation. Normal medial femorotibial compartment. Normal lateral femorotibial compartment. Normal patellofemoral articulation. The soft tissue structures are unremarkable. RAD/Knee 4 or More Views IMPRESSION: Normal x-ray examination of the knee. Electronically Signed: Spencer Ingram MD at 8:55 EDT , Service support ,
--- NOTE | 2021-05-22 16:03 | RAD_ITS ---
STUDY: X-RAY - LEFT KNEE REASON FOR EXAM: Female, 46 years old. PAIN TECHNIQUE: 4 view(s) of the knee. COMPARISON: None. FINDINGS: Normal visualized distal femur. Normal visualized proximal tibia and fibula. Normal proximal tibiofibular articulation. Normal medial femorotibial compartment. Normal lateral femorotibial compartment. Normal patellofemoral articulation. The soft tissue structures are unremarkable. RAD/Knee 4 or More Views IMPRESSION: Normal x-ray examination of the knee. Electronically Signed: Spencer Ingram MD at 8:55 EDT , Service support ,
== END ==
LOC: MTRAD 16:01
PROVIDERS: PCP Family Medicine; Referring Provider Family Medicine; Visit Provider Family Medicine
DX: M25.561 Pain in right knee (principal); M25.562 Pain in left knee
CPT/HCPCS: 73564

== ENCOUNTER 2021-06-12 16:00 | Outpatient (RCR) | payer SELFPAY ==
[2021-05-28 00:09] VITALS: BMI 44.4
== END 2021-06-26 23:59 ==
LOC: NS 16:00
PROVIDERS: PCP Family Medicine; Visit Provider Family Medicine
DX: Z71.3 Dietary counseling and surveillance (principal); E66.01 Morbid (severe) obesity due to excess calories; Z68.41 Body mass index [BMI] 40.0-44.9, adult
CPT/HCPCS: 97803

== ENCOUNTER → 2021-07-13 15:57 | Outpatient (CLI) | payer BC, SELFPAY ==
[2021-07-13 17:42] LABS: Absolute Lymphocyte Count 2.26 X10^3/uL (0.83-4.51); Absolute Neutrophil Count 4.5 X10^3/uL (2.0-7.7); Basophil# 0.06 X10^3/uL; Basophil% 0.8 % (0-1); Eosinophil# 0.08 X10^3/uL; Eosinophils% 1.1 % (0-5); Hematocrit 41.6 % (37-47); Lymphocyte # 2.26 X10^3/ul (0.83-4.51); Lymphocyte % 30.4 % (19-41); Mean Corp Hgb Conc 31.3 g/dL (32-36); Mean Corpuscular Hgb 28.2 pg (27.0-32.0); Mean Corpuscular Volume 90.2 fL (81-99); Mean Platelet Vol. 10.5 fl (6.2-12.0); Monocyte# 0.54 X10^3/uL; Monocyte% 7.3 % (0-10); NRBC Flagged by Analyzer 0 % (0-5); Neutrophil # 4.48 X10^3/uL (2.7-7.7); Neutrophil % 60.1 % (47-70); Platelet Count 436 K/mm3 (150-450); RBC Distribution Width CV 13.9 % (11.6-14.6); RBC Distribution Width SD 45.1 fl (35.1-43.9); Red Blood Count 4.61 M/mm3 (4.2-5.4); White Blood Count 7.4 K/mm3 (4.4-11.0)
[2021-07-13 18:10] LABS: ALB/GLOB Ratio 0.8 RATIO (0.9-2.4); AST(SGOT) 15 U/L (15-37); Alanine Aminotransfer ALT/SGPT 29 U/L (13-56); Albumin, Serum 3.6 g/dL (3.2-5.0); Alkaline Phosphatase 85 U/L (45-117); Anion Gap 3 (5-15); BUN 18 mg/dL (7-18); BUN/Creat Ratio 18.6 RATIO (10-20); Calcium,Total 9.4 mg/dL (8.5-10.1); Chloride 107 mmol/L (98-107); Creatinine, Serum 0.97 mg/dL (0.55-1.02); EST Glomerular Filtration Rate 66 mL/min (>60); Est Glom Filt Rate - Afr Amer 80 mL/min (>60); Globulin 4.3 g/dL (2.2-4.2); Glucose 87 mg/dL (74-106); Potassium 3.9 mmol/L (3.5-5.1); Protein, Total 7.9 g/dL (6.4-8.2); Sodium Level 140 mmol/L (136-145)
== END ==
PROVIDERS: PCP Family Medicine; Referring Provider Internal Medicine Rheumatology; Visit Provider Internal Medicine Rheumatology
DX: M06.4 Inflammatory polyarthropathy (principal); Z79.899 Other long term (current) drug therapy; M79.7 Fibromyalgia; M18.11 Unilateral primary osteoarthritis of first carpometacarpal joint, right hand; K21.9 Gastro-esophageal reflux disease without esophagitis; J45.909 Unspecified asthma, uncomplicated; R51.9 Headache, unspecified; E03.9 Hypothyroidism, unspecified; E78.5 Hyperlipidemia, unspecified; G47.33 Obstructive sleep apnea (adult) (pediatric)
CPT/HCPCS: 36415; 80053; 85025

== ENCOUNTER 2021-07-16 15:00 | Outpatient (RCR) | payer BC, SELFPAY ==
--- NOTE | 2021-06-06 17:05 | HP.PTEVAL ---
Patient's Visit Information YRN PEREZ is a 46 year old F referred to Physical Therapy by Dr. Bebo North MD with a diagnosis of Bilateral Knee Pain. Date of Evaluation: 06/06/21 Physical Therapist: Marly Cordero DPT - Visit Plan Frequency: 2x /Week Duration: 4 Weeks Plan: Aquatic- Focus on LE and CORE strength/stabilization! - Subjective Patient reports that she has bilateral knee pain- has been going on for several years- tripped and landed knees on a 2x4- [place] the [place]- also has RA and Fibro. Right knee is worse than the left. Saw PCP and they sent her to have x-rays. The x-rays were negative and asked she wanted to try PT. She is on her feet from 5:30AM-3:00PM. She is okay throughout the day- but once she sits down it starts hurting. It takes her about 30 min to get comfortable at night. It feels like it needs to pop but it just won't pop. The pain is along the front of the knee and radiates to the ankle. Describes the pain as sharp but other times its just there. Does have some pain in the limon that is on fire. No N/T in her feet. She has had back problems- broken vert when she was little and DDD- had PT but it has never really gotten better. Worst: 7/10 Agg: getting off of them after a long day. Eases: heat Best: 0/10 but its more than she just doesn't notice it. Sleep: hard to get comfortable- doesn't wake her up. She is usually a side sleeper. PMHx: Fibro, RA, arthritis, thyroid Meds: see list. - Objective Posture: FH, RS- can correct but does not maintain. Gait: no significant deviation noted. HR/TR: able reports pulling with TR. SLS: 3 sec then LOB increased hip drop. Observation: no edema noted. Palpation: medial and lateral joint line and distal patella. ROM: 0-125 degrees. Strength: Core: POOR Hip: 4+/5 throughout, Knee: 4-/5 with pain, ankle: 5/5. Flex: HS: severe, Gastroc: moderate. Special Test: Solis: positive Slump: positive. Stairs: recip with poor control - Balance/Special Test Scores Lower Extremity Functional Score: 60 - Goals Goal 1:: Patient will be I with HEP and progression Goal Time Frame: 4-6 Weeks Goal 2:: Patient will maintain proper posture t/o tx session to demo increased core s/s Goal Time Frame: 4-6 Weeks Goal 3:: Patient will report no pain for 1 week Goal Time Frame: 4-6 Weeks - Rehabilitation Potential Physical Therapy Diagnosis: Patient presents with hypomobility- she has decreased painfree ROM, LE and core strength/stabilization, flex and muscular endurance leading to poor posture and increased pain with ADL's. - Anticipated Interventions Patient/Client Instruction: Educate patient on: Benefits of Fitness Program Therapeutic Exercise to Include: Strength training, Endurance training, Balance training, Agility training, Body mechanics, Postural training, Flexibilty training, Gait and locomotor training, Neuromotor development, In an aquatic setting, Dynamic Lumbar Stabilization For the Purpose of:: To improve muscle performance and motor function Thank you for the opportunity to evaluate your patient. For Medicare and Medicare HMO plans, please review the plan of care and approve it. It will need to be FAXED BACK to us at [phone] for Medicare purposes. For Medicare only, by signing this I certify the plan of care. Please let me know if there are questions or concerns regarding this plan of care. Physician Signature: Date:
--- NOTE | 2021-07-16 15:29 | HP.PTREVAL_ITS ---
Dr. Bebo North MD, It has been my pleasure to treat YRN PEREZ over the last 9 visits for Bilateral Knee Pain. Please see the progress note below for an update on the physical therapy plan of care! Subjective: Patient reports that she saw a different therapist on the last day and thinks she was great. She has been able to incorporate more at home. The pain is a lot better but still hurts at night. 3/10 at its worse in the last few days. Objective/Function: Posture: FH, RS- can correct but does not maintain. Gait: no significant deviation noted. HR/TR: without pain SLS:15 seconds. Observation: no edema noted. Palpation: medial and lateral joint line and distal patella. ROM: 0-125 degrees. Strength: Core: fair plus Hip: 4+/5 throughout, Knee: 4+/5 with pain, ankle: 5/5. Flex: HS: severe, Gastroc: moderate. Special Test: Solis: positive Slump: positive. Stairs: recip with 1 HR Plan Plan: Continue 2x a week for 4 weeks- checking on insurance and will call back if needed. Balance/Gait/Functional tests - Balance/Special Test Scores Lower Extremity Functional Score: 69 Goals Goal 1:: Patient will be I with HEP and progression Goal Time Frame: 4-6 Weeks Goal Progress: Progressing Goal 2:: Patient will maintain proper posture t/o tx session to demo increased core s/s Goal Time Frame: 4-6 Weeks Goal Progress: Progressing Goal 3:: Patient will report no pain for 1 week Goal Time Frame: 4-6 Weeks Goal Progress: Progressing Anticipated Interventions Patient/Client Instruction: Educate patient on: Benefits of Fitness Program Therapeutic Exercise to Include: Strength training, Endurance training, Balance training, Agility training, Body mechanics, Postural training, Flexibilty traini ng, Gait and locomotor training, Neuromotor development, In an aquatic setting, Dynamic Lumbar Stabilization For the Purpose of:: To improve muscle performance and motor function Please do not hesitate to contact me at [phone] by phone or if you have questions or concerns regarding this new plan of care! Sincerely, Marly Cordero DPT
--- NOTE | 2021-08-15 15:36 | HP.PT.NRP ---
YRN Lindy CHRIS was seen in my office for initial evaluation on 06/06/21. The following Plan of Care was established for this patient: Initial Frequency: 2x /Week Initial Duration: 4 Weeks Patient/Client Instruction: Educate patient on: Benefits of Fitness Program Therapeutic Exercise to Include: Strength training, Endurance training, Balance training, Agility training, Body mechanics, Postural training, Flexibilty training, Gait and locomotor training, Neuromotor development, In an aquatic setting, Dynamic Lumbar Stabilization For the Purpose of:: To improve muscle performance and motor function This patient was last seen in our office . Pertinent comments regarding their Physical therapy will appear below: Patient has attended PT in over 30 days- appropriate to be d/c from PT- follow up with MD for further evaluation. At this point I will be discontinuing this patient from physical therapy. I would be happy to see this patient again in the future if found appropriate by the physician. Thank you! Marly Cordero, ERINT Balance/Gait/Functional tests - Balance/Special Test Scores Lower Extremity Functional Score: 69
== END 2021-07-16 19:00 | disposition home or self-care (01) ==
LOC: PT 15:00
PROVIDERS: PCP Family Medicine; Visit Provider Family Medicine
DX: M25.562 Pain in left knee (principal); M25.561 Pain in right knee
CPT/HCPCS: 97110; 97113; 97162; 97164

== ENCOUNTER 2021-07-23 15:30 | Outpatient (RCR) | payer SELFPAY ==
[2021-06-27 00:15] VITALS: BMI 44.4
== END 2021-07-27 23:59 ==
LOC: NS 15:30
PROVIDERS: PCP Family Medicine; Visit Provider Family Medicine
DX: Z71.3 Dietary counseling and surveillance (principal); E66.01 Morbid (severe) obesity due to excess calories; Z68.41 Body mass index [BMI] 40.0-44.9, adult
CPT/HCPCS: 97803

== ENCOUNTER 2021-08-16 17:55 | Outpatient (CLI) | payer BC, SELFPAY | END 2021-08-16 23:59 | disposition short-term general hospital (02) | LOC: LABSPEC 08-17 08:23 | PROVIDERS: PCP Family Medicine; Visit Provider Family Medicine | DX: U07.1 COVID-19 (principal) | CPT/HCPCS: 87635; U0003; U0005 ==

== ENCOUNTER 2021-08-21 13:36 | Outpatient (CLI) | payer BC, SELFPAY ==
[2021-08-21 13:44] VITALS: BP 121/92; PULSE 74; RESP 16; TEMP 37; O2SAT 99; BMI 40.4
[2021-08-21] MEDS: 0.9% Saline Lock 10 ML Syringe IV (13:47)
[2021-08-21 14:37] VITALS: BP 115/79; PULSE 64; RESP 16; TEMP 37.2; O2SAT 99
[2021-08-21 15:27] VITALS: BP 116/71; PULSE 61; RESP 16; TEMP 36.8; O2SAT 100
== END 2021-08-21 23:59 | disposition home or self-care (01) ==
LOC: MS3OUT 13:37 → MS3 13:38
PROVIDERS: PCP Family Medicine; Referring Provider Nurse Practitioner Adult Health; Visit Provider Nurse Practitioner Adult Health
DX: U07.1 COVID-19 (principal)
CPT/HCPCS: J7050; M0247; A4216; Q0247

== ENCOUNTER 2021-09-11 15:07 | Outpatient (CLI) | payer BC, SELFPAY ==
[2021-09-11 17:59] LABS: Absolute Lymphocyte Count 2.47 X10^3/uL (0.83-4.51); Absolute Neutrophil Count 3.9 X10^3/uL (2.0-7.7); Basophil# 0.07 X10^3/uL; Eosinophil# 0.11 X10^3/uL; Eosinophils% 1.5 % (0-5); Hematocrit 40.7 % (37-47); Hemoglobin 12.8 g/dL (12.0-15.0); Lymphocyte # 2.47 X10^3/ul (0.83-4.51); Mean Corp Hgb Conc 31.4 g/dL (32-36); Mean Corpuscular Hgb 27.8 pg (27.0-32.0); Mean Corpuscular Volume 88.5 fL (81-99); Monocyte# 0.64 X10^3/uL; Monocyte% 8.8 % (0-10); NRBC Flagged by Analyzer 0 % (0-5); Neutrophil # 3.94 X10^3/uL (2.7-7.7); Neutrophil % 54.3 % (47-70); Platelet Count 367 K/mm3 (150-450); RBC Distribution Width CV 13.8 % (11.6-14.6); RBC Distribution Width SD 44.6 fl (35.1-43.9); White Blood Count 7.3 K/mm3 (4.4-11.0)
[2021-09-11 18:20] LABS: ALB/GLOB Ratio 0.9 RATIO (0.9-2.4); AST(SGOT) 20 U/L (15-37); Alanine Aminotransfer ALT/SGPT 32 U/L (13-56); Albumin, Serum 3.5 g/dL (3.2-5.0); Alkaline Phosphatase 82 U/L (45-117); Anion Gap 7 (5-15); BUN 16 mg/dL (7-18); BUN/Creat Ratio 20.9 RATIO (10-20); Calcium,Total 8.8 mg/dL (8.5-10.1); Chloride 102 mmol/L (98-107); Cholesterol 177 mg/dL (200); Creatinine, Serum 0.76 mg/dL (0.55-1.02); EST Glomerular Filtration Rate 86 mL/min (>60); Est Glom Filt Rate - Afr Amer 105 mL/min (>60); Glucose 72 mg/dL (74-106); High Density Lipoprotein 61 mg/dL; Potassium 3.9 mmol/L (3.5-5.1); Protein, Total 7.5 g/dL (6.4-8.2); Sodium Level 136 mmol/L (136-145); T4 Free Direct 1.36 ng/dL (0.76-1.46); Thyroid Stim Hormone (TSH) 1.43 uIU/mL (0.358-3.74); Triglycerides 98 mg/dL; Very Low Density Lipoprotein 20 mg/dL (5-40)
== END 2021-09-11 23:59 | disposition home or self-care (01) ==
LOC: MFPLAB 15:08
PROVIDERS: PCP Family Medicine; Referring Provider Family Medicine; Visit Provider Family Medicine
DX: E03.8 Other specified hypothyroidism (principal); E66.01 Morbid (severe) obesity due to excess calories
CPT/HCPCS: 36415; 80053; 80061; 84439; 84443; 85025

== ENCOUNTER 2021-09-19 16:00 | Outpatient (RCR) | payer SELFPAY ==
[2021-07-28 00:15] VITALS: BMI 44.4
== END 2021-09-24 23:59 ==
LOC: NS 16:00
PROVIDERS: PCP Family Medicine; Visit Provider Family Medicine
DX: Z71.3 Dietary counseling and surveillance (principal); E66.01 Morbid (severe) obesity due to excess calories; Z68.41 Body mass index [BMI] 40.0-44.9, adult
CPT/HCPCS: 97803

== ENCOUNTER 2021-10-09 15:42 | Outpatient (RCR) | payer SELFPAY ==
[2021-09-25 00:09] VITALS: BMI 44.4
== END 2021-10-25 23:59 ==
LOC: NS 15:42
PROVIDERS: PCP Family Medicine; Referring Provider Family Medicine; Visit Provider Family Medicine
DX: Z71.3 Dietary counseling and surveillance (principal); E66.01 Morbid (severe) obesity due to excess calories; Z68.41 Body mass index [BMI] 40.0-44.9, adult
CPT/HCPCS: 97803

== ENCOUNTER 2021-10-31 14:29 | Outpatient (RCR) | payer SELFPAY ==
[2021-10-26 00:14] VITALS: BMI 44.4
== END 2021-11-24 23:59 ==
LOC: NS 14:29
PROVIDERS: PCP Family Medicine; Referring Provider Family Medicine; Visit Provider Family Medicine
DX: Z71.3 Dietary counseling and surveillance (principal); E66.01 Morbid (severe) obesity due to excess calories; Z68.41 Body mass index [BMI] 40.0-44.9, adult
CPT/HCPCS: 97803

== ENCOUNTER → 2022-01-09 | Outpatient (CLI) | payer BC, SELFPAY ==
[2022-01-09 17:30] LABS: Absolute Lymphocyte Count 2.43 X10^3/uL (0.83-4.51); Absolute Neutrophil Count 4.3 X10^3/uL (2.0-7.7); Basophil# 0.06 X10^3/uL; Basophil% 0.8 % (0-1); Eosinophil# 0.13 X10^3/uL; Eosinophils% 1.7 % (0-5); Hematocrit 41.9 % (37-47); Hemoglobin 13.2 g/dL (12.0-15.0); Lymphocyte # 2.43 X10^3/ul (0.83-4.51); Lymphocyte % 32.4 % (19-41); Mean Corp Hgb Conc 31.5 g/dL (32-36); Mean Corpuscular Hgb 27.6 pg (27.0-32.0); Mean Corpuscular Volume 87.7 fL (81-99); Mean Platelet Vol. 10.6 fl (6.2-12.0); Monocyte# 0.53 X10^3/uL; Monocyte% 7.1 % (0-10); NRBC Flagged by Analyzer 0 % (0-5); Neutrophil # 4.33 X10^3/uL (2.7-7.7); Neutrophil % 57.7 % (47-70); Platelet Count 439 K/mm3 (150-450); RBC Distribution Width CV 13.1 % (11.6-14.6); RBC Distribution Width SD 42.4 fl (35.1-43.9); Red Blood Count 4.78 M/mm3 (4.2-5.4); White Blood Count 7.5 K/mm3 (4.4-11.0)
[2022-01-09 17:51] LABS: ALB/GLOB Ratio 0.9 RATIO (0.9-2.4); AST(SGOT) 14 U/L (15-37); Alanine Aminotransfer ALT/SGPT 27 U/L (13-56); Albumin, Serum 3.6 g/dL (3.2-5.0); Alkaline Phosphatase 99 U/L (45-117); Anion Gap 6 (5-15); BUN 15 mg/dL (7-18); BUN/Creat Ratio 16.1 RATIO (10-20); Calcium,Total 8.7 mg/dL (8.5-10.1); Chloride 106 mmol/L (98-107); Creatinine, Serum 0.93 mg/dL (0.55-1.02); EST Glomerular Filtration Rate 68 mL/min (>60); Est Glom Filt Rate - Afr Amer 83 mL/min (>60); Glucose 81 mg/dL (74-106); Potassium 4.1 mmol/L (3.5-5.1); Protein, Total 7.6 g/dL (6.4-8.2); Sodium Level 140 mmol/L (136-145)
== END | disposition home or self-care (01) ==
PROVIDERS: PCP Family Medicine; Referring Provider Internal Medicine Rheumatology; Visit Provider Internal Medicine Rheumatology
DX: M06.4 Inflammatory polyarthropathy (principal); Z79.899 Other long term (current) drug therapy; M79.7 Fibromyalgia; M18.11 Unilateral primary osteoarthritis of first carpometacarpal joint, right hand; K21.9 Gastro-esophageal reflux disease without esophagitis; J45.909 Unspecified asthma, uncomplicated; R51.9 Headache, unspecified; E03.9 Hypothyroidism, unspecified; E78.5 Hyperlipidemia, unspecified; G47.33 Obstructive sleep apnea (adult) (pediatric)
CPT/HCPCS: 36415; 80053; 85025

== ENCOUNTER → 2022-04-16 | Outpatient (CLI) | payer BC, SELFPAY ==
[2022-04-16 17:46] LABS: Absolute Lymphocyte Count 2.21 X10^3/uL (0.83-4.51); Basophil# 0.05 X10^3/uL; Basophil% 0.7 % (0-1); Eosinophil# 0.09 X10^3/uL; Eosinophils% 1.3 % (0-5); Hematocrit 41.6 % (37-47); Hemoglobin 13.1 g/dL (12.0-15.0); Lymphocyte # 2.21 X10^3/ul (0.83-4.51); Lymphocyte % 31.8 % (19-41); Mean Corp Hgb Conc 31.5 g/dL (32-36); Mean Corpuscular Hgb 27.3 pg (27.0-32.0); Mean Corpuscular Volume 86.8 fL (81-99); Mean Platelet Vol. 10.7 fl (6.2-12.0); Monocyte# 0.55 X10^3/uL; Monocyte% 7.9 % (0-10); NRBC Flagged by Analyzer 0 % (0-5); Neutrophil # 4.02 X10^3/uL (2.7-7.7); Neutrophil % 57.9 % (47-70); Platelet Count 388 K/mm3 (150-450); RBC Distribution Width CV 13.3 % (11.6-14.6); RBC Distribution Width SD 42.4 fl (35.1-43.9); Red Blood Count 4.79 M/mm3 (4.2-5.4)
[2022-04-16 18:40] LABS: ALB/GLOB Ratio 0.8 RATIO (0.9-2.4); AST(SGOT) 27 U/L (15-37); Alanine Aminotransfer ALT/SGPT 34 U/L (13-56); Albumin, Serum 3.5 g/dL (3.2-5.0); Alkaline Phosphatase 92 U/L (45-117); Anion Gap 9 (5-15); BUN 17 mg/dL (7-18); Calcium,Total 9.1 mg/dL (8.5-10.1); Chloride 105 mmol/L (98-107); Cholesterol 213 mg/dL (200); Creatinine, Serum 0.85 mg/dL (0.55-1.02); EST Glomerular Filtration Rate 76 mL/min (>60); Est Glom Filt Rate - Afr Amer 92 mL/min (>60); Globulin 4.2 g/dL (2.2-4.2); Glucose 91 mg/dL (74-106); High Density Lipoprotein 57 mg/dL; Potassium 4.1 mmol/L (3.5-5.1); Protein, Total 7.7 g/dL (6.4-8.2); Sodium Level 138 mmol/L (136-145); T4 Free Direct 1.18 ng/dL (0.76-1.46); Thyroid Stim Hormone (TSH) 2.41 uIU/mL (0.358-3.74); Triglycerides 176 mg/dL; Very Low Density Lipoprotein 35 mg/dL (5-40)
== END | disposition home or self-care (01) ==
LOC: MFPLAB 15:36
PROVIDERS: PCP Family Medicine; Referring Provider Family Medicine; Visit Provider Family Medicine
DX: E03.8 Other specified hypothyroidism (principal); E78.00 Pure hypercholesterolemia, unspecified
CPT/HCPCS: 36415; 80053; 80061; 84439; 84443; 85025

== ENCOUNTER → 2022-05-30 | Outpatient (CLI) | payer BC, SELFPAY ==
[2022-05-30 18:03] LABS: Absolute Lymphocyte Count 2.37 X10^3/uL (0.83-4.51); Basophil# 0.06 X10^3/uL; Basophil% 0.8 % (0-1); Eosinophil# 0.13 X10^3/uL; Eosinophils% 1.8 % (0-5); Hematocrit 39.2 % (37-47); Hemoglobin 12.5 g/dL (12.0-15.0); Lymphocyte # 2.37 X10^3/ul (0.83-4.51); Lymphocyte % 33.6 % (19-41); Mean Corp Hgb Conc 31.9 g/dL (32-36); Mean Corpuscular Hgb 27.8 pg (27.0-32.0); Mean Corpuscular Volume 87.3 fL (81-99); Mean Platelet Vol. 10.4 fl (6.2-12.0); Monocyte# 0.53 X10^3/uL; Monocyte% 7.5 % (0-10); NRBC Flagged by Analyzer 0 % (0-5); Neutrophil # 3.96 X10^3/uL (2.7-7.7); Neutrophil % 56.2 % (47-70); Platelet Count 416 K/mm3 (150-450); RBC Distribution Width CV 14.2 % (11.6-14.6); RBC Distribution Width SD 44.5 fl (35.1-43.9); Red Blood Count 4.49 M/mm3 (4.2-5.4); White Blood Count 7.1 K/mm3 (4.4-11.0)
[2022-05-30 18:20] LABS: ALB/GLOB Ratio 0.8 RATIO (0.9-2.4); AST(SGOT) 28 U/L (15-37); Alanine Aminotransfer ALT/SGPT 45 U/L (13-56); Albumin, Serum 3.3 g/dL (3.2-5.0); Alkaline Phosphatase 299 U/L (45-117); Anion Gap 7 (5-15); BUN 19 mg/dL (7-18); Calcium,Total 8.6 mg/dL (8.5-10.1); Chloride 105 mmol/L (98-107); Creatinine, Serum 0.95 mg/dL (0.55-1.02); EST Glomerular Filtration Rate 67 mL/min (>60); Est Glom Filt Rate - Afr Amer 81 mL/min (>60); Glucose 82 mg/dL (74-106); Protein, Total 7.3 g/dL (6.4-8.2); Sodium Level 139 mmol/L (136-145)
== END | disposition home or self-care (01) ==
LOC: MTLAB 14:31
PROVIDERS: PCP Family Medicine; Referring Provider Internal Medicine Rheumatology; Visit Provider Internal Medicine Rheumatology
DX: M06.4 Inflammatory polyarthropathy (principal); Z79.899 Other long term (current) drug therapy; M79.7 Fibromyalgia; M18.11 Unilateral primary osteoarthritis of first carpometacarpal joint, right hand; K21.9 Gastro-esophageal reflux disease without esophagitis; J45.909 Unspecified asthma, uncomplicated; R51.9 Headache, unspecified; E03.9 Hypothyroidism, unspecified; E78.5 Hyperlipidemia, unspecified; G47.33 Obstructive sleep apnea (adult) (pediatric)
CPT/HCPCS: 36415; 80053; 85025

== ENCOUNTER → 2022-07-09 | Outpatient (CLI) | payer BC, SELFPAY ==
[2022-07-09 18:35] LABS: Cholesterol 169 mg/dL (200); High Density Lipoprotein 49 mg/dL; T4 Free Direct 1.02 ng/dL (0.76-1.46); Thyroid Stim Hormone (TSH) 5.02 uIU/mL (0.358-3.74); Triglycerides 212 mg/dL; Very Low Density Lipoprotein 42 mg/dL (5-40)
== END | disposition home or self-care (01) ==
LOC: MFPLAB 16:04
PROVIDERS: PCP Family Medicine; Referring Provider Family Medicine; Visit Provider Family Medicine
DX: E78.00 Pure hypercholesterolemia, unspecified (principal); E03.8 Other specified hypothyroidism
CPT/HCPCS: 36415; 80061; 84439; 84443

== ENCOUNTER → 2022-09-09 | Outpatient (CLI) | payer BC, SELFPAY ==
[2022-09-09 18:02] LABS: Absolute Neutrophil Count 3.2 X10^3/uL (2.0-7.7); Basophil# 0.04 X10^3/uL; Basophil% 0.6 % (0-1); Eosinophil# 0.07 X10^3/uL; Eosinophils% 1.1 % (0-5); Hematocrit 40.3 % (37-47); Hemoglobin 12.3 g/dL (12.0-15.0); Lymphocyte % 39.4 % (19-41); Mean Corp Hgb Conc 30.5 g/dL (32-36); Mean Corpuscular Volume 88.6 fL (81-99); Mean Platelet Vol. 10.5 fl (6.2-12.0); Monocyte# 0.49 X10^3/uL; Monocyte% 7.7 % (0-10); NRBC Flagged by Analyzer 0 % (0-5); Neutrophil # 3.23 X10^3/uL (2.7-7.7); Platelet Count 388 K/mm3 (150-450); RBC Distribution Width CV 13.2 % (11.6-14.6); Red Blood Count 4.55 M/mm3 (4.2-5.4); White Blood Count 6.3 K/mm3 (4.4-11.0)
[2022-09-09 18:33] LABS: ALB/GLOB Ratio 0.9 RATIO (0.9-2.4); AST(SGOT) 22 U/L (15-37); Alanine Aminotransfer ALT/SGPT 32 U/L (13-56); Albumin, Serum 3.4 g/dL (3.2-5.0); Alkaline Phosphatase 93 U/L (45-117); Anion Gap 5 (5-15); BUN 17 mg/dL (7-18); BUN/Creat Ratio 18.5 RATIO (10-20); Calcium,Total 8.8 mg/dL (8.5-10.1); Chloride 105 mmol/L (98-107); Creatinine, Serum 0.92 mg/dL (0.55-1.02); EST Glomerular Filtration Rate 69 mL/min (>60); Est Glom Filt Rate - Afr Amer 84 mL/min (>60); Globulin 3.8 g/dL (2.2-4.2); Glucose 86 mg/dL (74-106); Protein, Total 7.2 g/dL (6.4-8.2); Sodium Level 139 mmol/L (136-145)
== END | disposition home or self-care (01) ==
LOC: MTLAB 15:24
PROVIDERS: PCP Family Medicine; Referring Provider Internal Medicine Rheumatology; Visit Provider Internal Medicine Rheumatology
DX: M06.4 Inflammatory polyarthropathy (principal); Z79.899 Other long term (current) drug therapy; M79.7 Fibromyalgia; M18.11 Unilateral primary osteoarthritis of first carpometacarpal joint, right hand; K21.9 Gastro-esophageal reflux disease without esophagitis; J45.909 Unspecified asthma, uncomplicated; R51.9 Headache, unspecified; E03.9 Hypothyroidism, unspecified; E78.5 Hyperlipidemia, unspecified; G47.33 Obstructive sleep apnea (adult) (pediatric)
CPT/HCPCS: 36415; 80053; 85025

== ENCOUNTER → 2022-11-07 | Outpatient (CLI) | payer BC, SELFPAY ==
[2022-11-07 17:47] LABS: Absolute Lymphocyte Count 2.14 X10^3/uL (0.83-4.51); Absolute Neutrophil Count 4.3 X10^3/uL (2.0-7.7); Basophil# 0.07 X10^3/uL; Eosinophil# 0.15 X10^3/uL; Eosinophils% 2.1 % (0-5); Hematocrit 40.8 % (37-47); Lymphocyte # 2.14 X10^3/ul (0.83-4.51); Lymphocyte % 29.6 % (19-41); Mean Corp Hgb Conc 31.9 g/dL (32-36); Mean Corpuscular Hgb 27.8 pg (27.0-32.0); Mean Corpuscular Volume 87.4 fL (81-99); Mean Platelet Vol. 10.9 fl (6.2-12.0); Monocyte# 0.51 X10^3/uL; Monocyte% 7.1 % (0-10); NRBC Flagged by Analyzer 0 % (0-5); Neutrophil # 4.34 X10^3/uL (2.7-7.7); Neutrophil % 60.1 % (47-70); Platelet Count 406 K/mm3 (150-450); RBC Distribution Width CV 14.4 % (11.6-14.6); RBC Distribution Width SD 45.5 fl (35.1-43.9); Red Blood Count 4.67 M/mm3 (4.2-5.4); White Blood Count 7.2 K/mm3 (4.4-11.0)
[2022-11-07 18:35] LABS: AST(SGOT) 23 U/L (15-37); Alanine Aminotransfer ALT/SGPT 52 U/L (13-56); Albumin, Serum 3.7 g/dL (3.2-5.0); Alkaline Phosphatase 81 U/L (45-117); Anion Gap 6 (5-15); BUN 21 mg/dL (7-18); BUN/Creat Ratio 23.3 RATIO (10-20); Calcium,Total 8.9 mg/dL (8.5-10.1); Chloride 107 mmol/L (98-107); Cholesterol 191 mg/dL (200); EST Glomerular Filtration Rate 71 mL/min (>60); Est Glom Filt Rate - Afr Amer 86 mL/min (>60); Globulin 3.7 g/dL (2.2-4.2); Glucose 98 mg/dL (74-106); High Density Lipoprotein 54 mg/dL; Potassium 3.9 mmol/L (3.5-5.1); Protein, Total 7.4 g/dL (6.4-8.2); Sodium Level 137 mmol/L (136-145); Thyroid Stim Hormone (TSH) 0.92 uIU/mL (0.358-3.74); Triglycerides 172 mg/dL; Very Low Density Lipoprotein 34 mg/dL (5-40)
== END | disposition home or self-care (01) ==
LOC: MFPLAB 15:09
PROVIDERS: PCP Family Medicine; Referring Provider Family Medicine; Visit Provider Family Medicine
DX: E03.8 Other specified hypothyroidism (principal); E78.00 Pure hypercholesterolemia, unspecified
CPT/HCPCS: 36415; 80053; 80061; 84439; 84443; 85025

== ENCOUNTER → 2023-02-06 | Outpatient (CLI) | payer BC, SELFPAY ==
--- NOTE | 2023-02-06 15:06 | RAD_ITS ---
INDICATION: SPRAIN EXAMINATION/TECHNIQUE: X-RAY - LEFT XR Ankle Min 3 Views 3 VIEWS COMPARISON: None FINDINGS: SOFT TISSUES: Diffuse ankle edema.. No radiopaque foreign body. BONES/JOINTS: No acute fracture lucency. Age-indeterminate 4 mm osteochondral defect suggested at the lateral talar dome... Normal alignment. No effusion. Preservation of the joint space.. Small calcaneal Achilles and moderate calcaneal plantar enthesophytes. Small nonaggressive sclerotic distal tibial healed nonossifying fibroma.. RAD/Ankle min 3 Views IMPRESSION: Ankle edema as can be seen with sprain. Age-indeterminate small lateral talar dome osteochondral defect. MRI could better assess for associated intraosseous edema as clinically indicated.. Healed nonaggressive distal tibial nonossifying fibroma. Electronically Signed: Shamar Mcgovern MD at 8:40 EDT ,
== END | disposition home or self-care (01) ==
LOC: MTRAD 15:04
PROVIDERS: PCP Family Medicine; Visit Provider Family Medicine
DX: S93.409A Sprain of unspecified ligament of unspecified ankle, initial encounter (principal)
CPT/HCPCS: 73610

== ENCOUNTER → 2023-03-27 | Outpatient (CLI) | payer BC, SELFPAY ==
[2023-03-27 18:27] LABS: Absolute Lymphocyte Count 2.38 X10^3/uL (0.83-4.51); Absolute Neutrophil Count 4.4 X10^3/uL (2.0-7.7); Basophil# 0.05 X10^3/uL; Basophil% 0.7 % (0-1); Eosinophil# 0.13 X10^3/uL; Eosinophils% 1.7 % (0-5); Hemoglobin 12.8 g/dL (12.0-15.0); Lymphocyte # 2.38 X10^3/ul (0.83-4.51); Lymphocyte % 31.2 % (19-41); Mean Corp Hgb Conc 29.8 g/dL (32-36); Mean Corpuscular Hgb 26.7 pg (27.0-32.0); Mean Corpuscular Volume 89.6 fL (81-99); Mean Platelet Vol. 11.2 fl (6.2-12.0); Monocyte# 0.63 X10^3/uL; Monocyte% 8.2 % (0-10); NRBC Flagged by Analyzer 0 % (0-5); Neutrophil # 4.43 X10^3/uL (2.7-7.7); Neutrophil % 57.9 % (47-70); Platelet Count 381 K/mm3 (150-450); RBC Distribution Width CV 13.8 % (11.6-14.6); RBC Distribution Width SD 45.5 fl (35.1-43.9); White Blood Count 7.6 K/mm3 (4.4-11.0)
[2023-03-27 18:43] LABS: ALB/GLOB Ratio 0.9 RATIO (0.9-2.4); AST(SGOT) 18 U/L (15-37); Alanine Aminotransfer ALT/SGPT 34 U/L (13-56); Albumin, Serum 3.5 g/dL (3.2-5.0); Alkaline Phosphatase 89 U/L (45-117); Anion Gap 6 (5-15); BUN 23 mg/dL (7-18); BUN/Creat Ratio 25.6 RATIO (10-20); Calcium,Total 8.9 mg/dL (8.5-10.1); Chloride 106 mmol/L (98-107); Cholesterol 192 mg/dL (200); EST Glomerular Filtration Rate 71 mL/min (>60); Est Glom Filt Rate - Afr Amer 86 mL/min (>60); Glucose 89 mg/dL (74-106); High Density Lipoprotein 50 mg/dL; Potassium 4.1 mmol/L (3.5-5.1); Protein, Total 7.5 g/dL (6.4-8.2); Sodium Level 138 mmol/L (136-145); Thyroid Stim Hormone (TSH) 0.96 uIU/mL (0.358-3.74); Triglycerides 220 mg/dL; Very Low Density Lipoprotein 44 mg/dL (5-40)
== END | disposition home or self-care (01) ==
LOC: MFPLAB 15:30
PROVIDERS: PCP Family Medicine; Visit Provider Family Medicine
DX: E03.8 Other specified hypothyroidism (principal); E78.00 Pure hypercholesterolemia, unspecified
CPT/HCPCS: 36415; 80053; 80061; 84439; 84443; 85025

== ENCOUNTER 2023-04-16 15:30 | Outpatient (RCR) | payer BC, SELFPAY ==
--- NOTE | 2023-02-19 16:02 | HP.PTEVAL_ITS ---
Patient's Visit Information Visit Information Visit Information: YRN PEREZ is a 47 year old F referred to Physical Therapy by Dr. Bebo North MD with a diagnosis of L ankle sprain. Date of Evaluation: 02/19/23 Physical Therapist: Billy Venegas, PT, ATC Visit Plan Frequency: 2-3x /Week Duration: 4-6 Weeks Plan: L ankle stretching and strengthening, balance and proprio, bike, man ther, and HEP Subjective Subjective: Pt reports her L ankle became sore approximately 6 weeks ago. Pt notes she has no idea how she did it. Pt notes she did roll her ankle at the time, but notes the pain she experiences not didnt occur until 2 weeks after rolling her ankle. Pt reports her L ankle is actually more sore at this time than it was a few weeks ago. Pt notes when her pain is the worst, she experiences a burning type of sensation. Pt reports she has tingling in L LE from the mid limon downward. Pt reports it is hard to fall asleep at night second dionte to pain. Pt reports she has a Hx of ankle sprains when she was little. Pt reports difficulty with stair negotatition and and prolonged ambulation, like when she is working. 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 2/10 pain at rest, 8/10 pain at worst Pain L ankle pain: Pain Intensity (Out of 10): 2 Pain Intensity Range: 8 Objective Objective: Neuro: B LE sensation is WNL to light touch. Palpation: Pt is very sore on the medial aspect of L ankle. Obvious swelling throughout. No obvious deformity. ROM: L ankle DF= -10, PF= 60; R ankle DF= 1, PF= 60 MMT: R ankle DF= 42, PF= 64 #F; L ankle DF= 20, PF= 20 #F Gait: Pt was able to ambulate 170 feet until needing to adapt her gait pattern secondary to pain Balance/Special Test Scores Lower Extremity Functional Score: 50 Goals Goal 1:: Decrease L ankle pain x 50% to aid with sleep Goal Time Frame: 4-6 Weeks Goal 2:: Increase L ankle strength x 5-10 #F to aid with stair negotiation Goal Time Frame: 4-6 Weeks Goal 3:: Increase L ankle DF ROM x 10 degrees to aid with decreasing pain. Goal Time Frame: 4-6 Weeks Goal 4:: I with HEP Goal Time Frame: 4-6 Weeks Rehabilitation Potential Physical Therapy Diagnosis: Pt has L ankle pain, weakness, and limited ROM secondary to L ankle sprain Rehabilitation Potential: Good Anticipated Interventions Patient/Client Instruction: Educate patient on: Condition and Plan of Care For the Purpose of:: To improve self management Therapeutic Exercise to Include: Strength training, Balance training, Flexibilty training, Passive ROM and Active ROM For the Purpose of:: To decrease pain, To increase ROM and To improve muscle performance and motor function Cryotherapy (ice pack, ice massage): Yes For the Purpose of:: To decrease pain Text: Thank you for the opportunity to evaluate your patient. For Medicare and Medicare HMO plans, please review the plan of care and approve it. It will need to be FAXED BACK to us at [phone] for Medicare purposes. For Medicare only, by signing this I certify the plan of care. Please let me know if there are questions or concerns regarding this plan of care. Physician Signature: Date:
--- NOTE | 2023-04-16 15:58 | HP.PTDCSUM ---
Discharge Summary D/C summary: It has been my pleasure to treat YRN PEREZ referred by Dr. Bebo North MD, with the diagnosis of L ankle sprain for a total of 8 visit(s). Discharge Date: Please see the following information for a summary of their discharge status. Subjective Subjective: Pain is relatively unchanged Pain L ankle pain: Pain Intensity (Out of 10): 2 Overall Improvement % Improvement: 50 Objective Objective/Function: L ankle MMT: DF= 35, PF= 46, Ever= 31 #F L ankle ROM: DF= 2, PF= 40 degrees L ankle pain ranges 2-8/10 Pt has made great gains with strength and ROM, no change in pain at this time Goals Goal 1:: Decrease L ankle pain x 50% to aid with sleep Goal Progress: Not Progressing Goal 2:: Increase L ankle strength x 5-10 #F to aid with stair negotiation Goal Progress: Goal Met Goal 3:: Increase L ankle DF ROM x 10 degrees to aid with decreasing pain. Goal Progress: Goal Met Goal 4:: I with HEP Goal Progress: Goal Met Plan Plan: Discharge to HEP D/C Information d/c sentence: If there are questions or concerns regarding this patient's physical therapy, please feel free to call me at [phone]. Thank you for the referral of this patient. Sincerely, Billy Venegas, PT, ATC Balance/Gait/Functional tests Balance/Special Test Scores Lower Extremity Functional Score: 47 Improvement % Improvement: 50
== END 2023-04-16 19:00 | disposition home or self-care (01) ==
LOC: PT 15:30
PROVIDERS: PCP Family Medicine; Referring Provider Family Medicine; Visit Provider Family Medicine
DX: S93.402D Sprain of unspecified ligament of left ankle, subsequent encounter (principal)
CPT/HCPCS: 97110; 97161; 97164

== ENCOUNTER → 2023-07-23 | Outpatient (CLI) | payer BC, SELFPAY ==
--- NOTE | 2023-07-23 15:27 | RAD_ITS ---
STUDY: X-RAY - LUMBAR SPINE REASON FOR EXAM: Female, 48 years old. Back pain. TECHNIQUE: 2 view(s) of the lumbar spine were obtained. COMPARISON: None FINDINGS: Osteopenia. Mild increased lordosis. No scoliosis. Normal alignment of the vertebrae. Diffuse lower thoracic and lumbosacral facet sclerosis. Normal disc space heights. Multiple clips projected over the left upper and midabdomen. RAD/Lumbar Spine 2 or 3 Views IMPRESSION: Mild osteopenia with no significant abnormality. Electronically Signed: Isiah Link MD at 15:54 EST ,
--- NOTE | 2023-07-23 15:27 | RAD_ITS ---
EXAM: XR THORACIC SPINE, 2 VIEWS CLINICAL INDICATION: BACK PAIN TECHNIQUE: Frontal and lateral views of the thoracic spine. COMPARISON: No relevant prior studies available. FINDINGS: VERTEBRAE: Multilevel endplate osteophytosis and facet arthrosis. Preserved vertebral body height. No fracture. No spondylolisthesis. Preservation of the normal thoracic kyphosis. DISC SPACES: Mild multilevel intervertebral disc height loss. SOFT TISSUES: Surgical clips in the upper abdomen. RAD/Thoracic Spine 2 Views IMPRESSION: Degenerative changes. No acute osseous abnormalities. Electronically Signed: Elan Funk DO at 17:26 EST ,
[2023-07-23 17:38] LABS: Absolute Lymphocyte Count 1.69 X10^3/uL (0.83-4.51); Absolute Neutrophil Count 3.3 X10^3/uL (2.0-7.7); Basophil# 0.05 X10^3/uL; Basophil% 0.9 % (0-1); Eosinophil# 0.06 X10^3/uL; Eosinophils% 1.1 % (0-5); Hematocrit 41.8 % (37-47); Hemoglobin 12.9 g/dL (12.0-15.0); Lymphocyte # 1.69 X10^3/ul (0.83-4.51); Lymphocyte % 30.1 % (19-41); Mean Corp Hgb Conc 30.9 g/dL (32-36); Mean Corpuscular Hgb 27.2 pg (27.0-32.0); Mean Corpuscular Volume 88.2 fL (81-99); Mean Platelet Vol. 11.4 fl (6.2-12.0); Monocyte# 0.56 X10^3/uL; NRBC Flagged by Analyzer 0 % (0-5); Neutrophil # 3.25 X10^3/uL (2.7-7.7); Neutrophil % 57.7 % (47-70); Platelet Count 332 K/mm3 (150-450); RBC Distribution Width CV 14.5 % (11.6-14.6); RBC Distribution Width SD 46.6 fl (35.1-43.9); Red Blood Count 4.74 M/mm3 (4.2-5.4); White Blood Count 5.6 K/mm3 (4.4-11.0)
[2023-07-23 18:01] LABS: Erythrocyte Sedimentation Rate 9 mm/hr (0-30)
[2023-07-23 18:04] LABS: AST(SGOT) 22 U/L (15-37); Alanine Aminotransfer ALT/SGPT 28 U/L (13-56); Albumin, Serum 3.8 g/dL (3.2-5.0); Alkaline Phosphatase 68 U/L (45-117); Anion Gap 8 (5-15); BUN 17 mg/dL (7-18); Calcium,Total 9.2 mg/dL (8.5-10.1); Chloride 106 mmol/L (98-107); Cholesterol 125 mg/dL (200); Creatinine, Serum 0.81 mg/dL (0.55-1.02); EST Glomerular Filtration Rate 80 mL/min (>60); Est Glom Filt Rate - Afr Amer 97 mL/min (>60); Globulin 3.7 g/dL (2.2-4.2); Glucose 90 mg/dL (74-106); High Density Lipoprotein 58 mg/dL; Potassium 3.8 mmol/L (3.5-5.1); Protein, Total 7.5 g/dL (6.4-8.2); Rheumatoid Factor < 10.0 IU/mL (<15); Sodium Level 140 mmol/L (136-145); T4 Free Direct 1.31 ng/dL (0.76-1.46); Thyroid Stim Hormone (TSH) 2.57 uIU/mL (0.358-3.74); Triglycerides 72 mg/dL; Very Low Density Lipoprotein 14 mg/dL (5-40)
[2023-07-25 11:08] LABS: ANTINUCLEAR ANTIBODIES DIRECT Negative (Negative)
[2023-07-25 12:08] LABS: CCP IgG Antibodies 6 units (0-19)
== END | disposition home or self-care (01) ==
PROVIDERS: PCP Family Medicine; Referring Provider Family Medicine; Visit Provider Family Medicine
DX: M54.6 Pain in thoracic spine (principal); M06.9 Rheumatoid arthritis, unspecified; M54.50 Low back pain, unspecified; E03.8 Other specified hypothyroidism
CPT/HCPCS: 36415; 72070; 72100; 80053; 80061; 84439; 84443; 85025; 85652; 86038; 86200; 86431

== ENCOUNTER → 2023-09-18 | Outpatient (CLI) | payer BC, SELFPAY ==
[2023-09-18 17:50] LABS: Absolute Lymphocyte Count 2.03 X10^3/uL (0.83-4.51); Absolute Neutrophil Count 3.7 X10^3/uL (2.0-7.7); Basophil# 0.05 X10^3/uL; Basophil% 0.8 % (0-1); Eosinophil# 0.07 X10^3/uL; Eosinophils% 1.1 % (0-5); Hematocrit 39.5 % (37-47); Hemoglobin 12.2 g/dL (12.0-15.0); Lymphocyte # 2.03 X10^3/ul (0.83-4.51); Lymphocyte % 31.7 % (19-41); Mean Corp Hgb Conc 30.9 g/dL (32-36); Mean Corpuscular Hgb 27.7 pg (27.0-32.0); Mean Corpuscular Volume 89.6 fL (81-99); Mean Platelet Vol. 11.9 fl (6.2-12.0); Monocyte# 0.55 X10^3/uL; Monocyte% 8.6 % (0-10); NRBC Flagged by Analyzer 0 % (0-5); Neutrophil # 3.69 X10^3/uL (2.7-7.7); Neutrophil % 57.5 % (47-70); Platelet Count 340 K/mm3 (150-450); RBC Distribution Width SD 49.1 fl (35.1-43.9); Red Blood Count 4.41 M/mm3 (4.2-5.4); White Blood Count 6.4 K/mm3 (4.4-11.0)
[2023-09-18 18:19] LABS: PTHIN 39.7 pg/mL (18.4-80.1)
[2023-09-18 18:22] LABS: Vitamin B12 643 pg/mL (211-911); Vitamin D,25 Hydroxy 52.4 ng/mL
[2023-09-18 19:03] LABS: ALB/GLOB Ratio 1.1 RATIO (0.9-2.4); AST(SGOT) 17 U/L (15-37); Alanine Aminotransfer ALT/SGPT 26 U/L (13-56); Albumin, Serum 3.7 g/dL (3.2-5.0); Alkaline Phosphatase 76 U/L (45-117); Anion Gap 7 (5-15); BUN 19 mg/dL (7-18); BUN/Creat Ratio 20.8 RATIO (10-20); Calcium,Total 9.6 mg/dL (8.5-10.1); Chloride 104 mmol/L (98-107); Creatinine, Serum 0.91 mg/dL (0.55-1.02); EST Glomerular Filtration Rate 70 mL/min (>60); Est Glom Filt Rate - Afr Amer 84 mL/min (>60); Ferritin 187 ng/mL (8-252); Globulin 3.4 g/dL (2.2-4.2); Glucose 82 mg/dL (74-106); Iron 50 ug/dL (50-170); Iron Binding Capacity,Total 292 ug/dL (250-450); PERCENT IRON SATURATION 17.1 % (15.0-55.0); Potassium 3.9 mmol/L (3.5-5.1); Protein, Total 7.1 g/dL (6.4-8.2); Sodium Level 138 mmol/L (136-145)
[2023-09-25 10:09] LABS: Copper, Serum or Plasma 128 ug/dL (80-158); Vitamin B1, Thiamine 157.4 nmol/L (66.5-200.0); Zinc, Plasma or Serum 49 ug/dL (44-115)
== END | disposition home or self-care (01) ==
LOC: MTLAB 14:57
PROVIDERS: PCP Family Medicine
DX: K90.9 Intestinal malabsorption, unspecified (principal); E21.3 Hyperparathyroidism, unspecified; E55.9 Vitamin D deficiency, unspecified; E53.8 Deficiency of other specified B group vitamins
CPT/HCPCS: 36415; 80053; 82306; 82525; 82607; 82728; 82746; 83540; 83550; 83970; 84425; 84630; 85025

== ENCOUNTER → 2023-12-17 | Outpatient (CLI) | payer BC, SELFPAY ==
[2023-12-17 17:38] LABS: Absolute Lymphocyte Count 2.14 X10^3/uL (0.83-4.51); Absolute Neutrophil Count 4.4 X10^3/uL (2.0-7.7); Basophil# 0.05 X10^3/uL; Basophil% 0.7 % (0-1); Eosinophil# 0.07 X10^3/uL; Hematocrit 38.5 % (37-47); Hemoglobin 12.1 g/dL (12.0-15.0); Lymphocyte # 2.14 X10^3/ul (0.83-4.51); Lymphocyte % 29.7 % (19-41); Mean Corp Hgb Conc 31.4 g/dL (32-36); Mean Corpuscular Hgb 27.8 pg (27.0-32.0); Mean Corpuscular Volume 88.5 fL (81-99); Monocyte# 0.54 X10^3/uL; Monocyte% 7.5 % (0-10); NRBC Flagged by Analyzer 0 % (0-5); Neutrophil # 4.39 X10^3/uL (2.7-7.7); Neutrophil % 60.8 % (47-70); Platelet Count 325 K/mm3 (150-450); RBC Distribution Width CV 13.3 % (11.6-14.6); RBC Distribution Width SD 43.5 fl (35.1-43.9); Red Blood Count 4.35 M/mm3 (4.2-5.4); White Blood Count 7.2 K/mm3 (4.4-11.0)
[2023-12-17 17:57] LABS: PTHIN 49.7 pg/mL (18.4-80.1)
[2023-12-17 17:59] LABS: Vitamin B12 > 2000 pg/mL (211-911); Vitamin D,25 Hydroxy 71.8 ng/mL
[2023-12-17 18:45] LABS: AST(SGOT) 20 U/L (15-37); Alanine Aminotransfer ALT/SGPT 26 U/L (13-56); Albumin, Serum 3.7 g/dL (3.2-5.0); Alkaline Phosphatase 86 U/L (45-117); Anion Gap 7 (5-15); BUN 25 mg/dL (7-18); Calcium,Total 9.3 mg/dL (8.5-10.1); Chloride 104 mmol/L (98-107); Cholesterol 135 mg/dL (200); Creatinine, Serum 0.81 mg/dL (0.55-1.02); EST Glomerular Filtration Rate 80 mL/min (>60); Est Glom Filt Rate - Afr Amer 97 mL/min (>60); Ferritin 142 ng/mL (8-252); Globulin 3.6 g/dL (2.2-4.2); Glucose 86 mg/dL (74-106); High Density Lipoprotein 63 mg/dL; Iron 49 ug/dL (50-170); Iron Binding Capacity,Total 325 ug/dL (250-450); PERCENT IRON SATURATION 15.1 % (15.0-55.0); Potassium 3.9 mmol/L (3.5-5.1); Protein, Total 7.3 g/dL (6.4-8.2); Sodium Level 137 mmol/L (136-145); T4 Free Direct 1.31 ng/dL (0.76-1.46); Thyroid Stim Hormone (TSH) 0.45 uIU/mL (0.358-3.74); Triglycerides 98 mg/dL; Very Low Density Lipoprotein 20 mg/dL (5-40)
[2023-12-23 18:07] LABS: Copper, Serum or Plasma 104 ug/dL (80-158); Vitamin B1, Thiamine 181.6 nmol/L (66.5-200.0); Zinc, Plasma or Serum 53 ug/dL (44-115)
== END | disposition home or self-care (01) ==
PROVIDERS: PCP Family Medicine
DX: K90.9 Intestinal malabsorption, unspecified (principal); E55.9 Vitamin D deficiency, unspecified; E21.3 Hyperparathyroidism, unspecified; E53.8 Deficiency of other specified B group vitamins
CPT/HCPCS: 36415; 80053; 80061; 82306; 82525; 82607; 82728; 82746; 83540; 83550; 83970; 84425; 84439; 84443; 84630; 85025

== ENCOUNTER → 2024-07-01 | Outpatient (CLI) | payer BC, SELFPAY ==
[2024-07-01 17:53] LABS: Absolute Lymphocyte Count 2.76 X10^3/uL (0.83-4.51); Absolute Neutrophil Count 5.3 X10^3/uL (2.0-7.7); Basophil# 0.07 X10^3/uL; Basophil% 0.8 % (0-1); Eosinophil# 0.07 X10^3/uL; Eosinophils% 0.8 % (0-5); Hematocrit 39.9 % (37-47); Hemoglobin 12.6 g/dL (12.0-15.0); Lymphocyte # 2.76 X10^3/ul (0.83-4.51); Lymphocyte % 31.2 % (19-41); Mean Corp Hgb Conc 31.6 g/dL (32-36); Mean Corpuscular Hgb 28.4 pg (27.0-32.0); Mean Corpuscular Volume 90.1 fL (81-99); Mean Platelet Vol. 10.4 fl (6.2-12.0); Monocyte# 0.67 X10^3/uL; Monocyte% 7.6 % (0-10); NRBC Flagged by Analyzer 0 % (0-5); Neutrophil # 5.25 X10^3/uL (2.7-7.7); Neutrophil % 59.3 % (47-70); Platelet Count 374 K/mm3 (150-450); RBC Distribution Width CV 13.6 % (11.6-14.6); RBC Distribution Width SD 44.6 fl (35.1-43.9); Red Blood Count 4.43 M/mm3 (4.2-5.4); White Blood Count 8.9 K/mm3 (4.4-11.0)
[2024-07-01 18:44] LABS: AST(SGOT) 22 U/L (15-37); Alanine Aminotransfer ALT/SGPT 41 U/L (13-56); Albumin, Serum 3.8 g/dL (3.2-5.0); Alkaline Phosphatase 80 U/L (45-117); Anion Gap 5 (5-15); BUN 24 mg/dL (7-18); BUN/Creat Ratio 35.2 RATIO (10-20); Calcium,Total 9.2 mg/dL (8.5-10.1); Chloride 104 mmol/L (98-107); Creatinine, Serum 0.68 mg/dL (0.55-1.02); EST Glomerular Filtration Rate 98 mL/min (>60); Est Glom Filt Rate - Afr Amer 118 mL/min (>60); Ferritin 186 ng/mL (8-252); Globulin 3.7 g/dL (2.2-4.2); Glucose 94 mg/dL (74-106); Iron 53 ug/dL (50-170); Iron Binding Capacity,Total 334 ug/dL (250-450); PERCENT IRON SATURATION 15.9 % (15.0-55.0); Potassium 4.2 mmol/L (3.5-5.1); Protein, Total 7.5 g/dL (6.4-8.2); Sodium Level 138 mmol/L (136-145)
[2024-07-01 18:46] LABS: PTHIN 39.6 pg/mL (18.4-80.1)
[2024-07-02 09:16] LABS: Vitamin B12 > 2000 pg/mL (211-911); Vitamin D,25 Hydroxy 53.7 ng/mL
[2024-07-07 10:09] LABS: Copper, Serum or Plasma 95 ug/dL (80-158); Vitamin B1, Thiamine 183.4 nmol/L (66.5-200.0); Zinc, Plasma or Serum 54 ug/dL (44-115)
== END | disposition home or self-care (01) ==
LOC: MTLAB 16:00
PROVIDERS: PCP Family Medicine
DX: K90.0 Celiac disease (principal); E53.8 Deficiency of other specified B group vitamins; E55.9 Vitamin D deficiency, unspecified; E21.3 Hyperparathyroidism, unspecified; E61.1 Iron deficiency
CPT/HCPCS: 36415; 80053; 82306; 82525; 82607; 82728; 82746; 83540; 83550; 83970; 84425; 84630; 85025

== ENCOUNTER 2024-07-02 15:38 | Emergency (ER) | payer BC, SELFPAY ==
[2024-07-02 15:38] VITALS: BP 152/96; PULSE 62; RESP 16; TEMP 36.8; O2SAT 98; BMI 26.6
[2024-07-02 18:59] VITALS: BP 121/81; PULSE 89; RESP 16; O2SAT 99
[2024-07-02 20:00] VITALS: BP 133/83; PULSE 53; RESP 16; O2SAT 98
--- NOTE | 2024-07-02 20:08 | EX.ED.DYSGE1 ---
HPI <HEIDE Lane - Last Filed: 07/02/24 21:32> History of Present Illness Chief Complaint: Other, Pain/Inj Narrative Narrative: 49-year-old female states she developed left trapezius pain around June 11. It gradually seems to radiate up the left neck to the occipital area. It would hurt more with movement. She saw her PCP yesterday and got an IM steroid shot and was prescribed Flexeril but has not picked it up yet. Today while at work she bent over developed muscle spasms in the left neck and trapezius. She states when she squatted again at work she felt pain shoot down her left arm and the tips of her fingers felt tingly. She has no weakness of the extremity. She frequently lifts up to 25 pounds at work. No falls or trauma. Patient states she received a thoracic epidural at pain management on 06/09. She followed up with their office due to these symptoms and they said it would not be related. She has not had fever or chills. [facility] <HEIDE Lane - Last Filed: 07/02/24 21:32> [facility] Medical History (Updated 07/02/24 @ 21:[address]) Cellulitis of right thumb Paronychia of right thumb Acute bronchitis, unspecified Acute maxillary sinusitis, unspecified Obstructive sleep apnea Obesity Prolapsed uterus RP (rectal prolapse) Rheumatoid arthritis DDD (degenerative disc disease) Asthma Hypothyroidism GERD (gastroesophageal reflux disease) Hyperlipidemia Home Medications ?Medication ?Instructions ?Recorded ?Last Taken ?Type famotidine 40 mg tablet 40 mg PO DAILY 01/14/20 Unknown History hydroxychloroquine 200 mg tablet 200 mg PO BID 01/14/20 Unknown History folic acid 1 mg tablet 2 mg PO DAILY 02/23/20 Unknown History bakixvc-wshonsoan-qssh 333 mg-133 1 tab PO BID 02/18/23 Unknown History mg-5 mg tablet cetirizine 10 mg tablet (All Day 10 mg PO DAILY 02/18/23 Unknown History Allergy (cetirizine)) cholecalciferol (vitamin D3) 250 250 mcg PO DAILY 02/18/23 Unknown History mcg (10,000 unit) capsule cyanocobalamin (vitamin B-12) 5,000 mcg PO DAILY 02/18/23 Unknown History 5,000 mcg disintegrating tablet levothyroxine 88 mcg tablet 88 mcg PO DAILY 02/18/23 Unknown History methotrexate sodium 2.5 mg tablet 15 mg PO QWEEK 02/18/23 Unknown History multivitamin with minerals 1 tab PO BID 02/18/23 Unknown History (Hair,Skin and Nails tablet) omega 9-mwr-dfd-fish oil 60 mg-90 1 cap PO DAILY 02/18/23 Unknown History mg-500 mg capsule (Fish Oil) omeprazole 40 mg capsule,delayed 40 mg PO DAILY 02/18/23 Unknown History release clindamycin HCl 300 mg capsule 300 mg PO TID #30 caps 05/19/24 Unknown Rx apremilast 30 mg tablet (Otezla) 30 mg PO BID 07/02/24 Unknown History doxycycline hyclate 20 mg tablet 20 mg PO BID 07/02/24 Unknown History gabapentin 300 mg capsule 300 mg PO DAILY 07/02/24 Unknown History Allergy/AdvReac Type Severity Reaction Status Date / Time No Known Allergies Allergy Verified 05/19/24 15:03 Family History (Reviewed 02/18/23 @ 15:16 by Bebo Amador BOILER CONTROL TECHNICIAN, BOILER CONTROL TECHNICIAN-C) Mother Hypertension Other Cancer Diabetes Heart disease Thyroid disorder Surgical History (Updated 07/02/24 @ 20:09 by Vasile Hoyos) Gastric bypass status for obesity History of cardiac cath History of pubovaginal sling History of hysterectomy Social History Smoking Status: Never smoker alcohol intake: current alcohol intake frequency: holidays/special occasions only Alcohol type: hard liquor substance use type: does not use ROS <HEIDE Lane - Last Filed: 07/02/24 21:32> ROS ED ROS Narrative Constitutional: Negative for fever, chills, malaise. Eyes: Negative for visual change. CVS: Negative for chest pain. GI: Negative for nausea, vomiting. EXAM <HEIDE Lane - Last Filed: 07/02/24 21:32> Physical Exam Narrative Exam Narrative: CONST: Patient sitting in no acute distress. EYES: Normal inspection. ENT: Normal inspection, moist mucous membranes. NECK: Normal inspection. No midline tenderness or step-offs. Tender over left cervical paraspinals and left trapezius. Supple, no meningismus. RESP: No respiratory distress, CTAB. CVS: Regular rate and rhythm, no murmur, no gallop. SKIN: Color normal, no rash, warm, dry, intact. EXTREMITIES: Normal appearance, no pedal edema. NEURO: Alert and answering questions appropriately. 5/5 strength in upper extremities, normal sensation, 2+ radial pulses. Normal pozujq-it-dags. PSYCH: Normal affect. Const Vital Signs: 07/02/24 15:38 07/02/24 18:59 07/02/24 20:00 Temperature 98.2 F Temperature Source Oral Pulse Rate 62 89 53 L Respiratory Rate 16 16 16 Respiratory Effort Respiratory Pattern Blood Pressure 152/96 H 121/81 H 133/83 H Blood Pressure Mean 114 94 99 Pulse Ox 98 99 98 Oxygen Delivery Method Room Air Room Air Room Air 07/02/24 20:10 07/02/24 21:49 Temperature 97.5 F L Temperature Source Pulse Rate 65 Respiratory Rate 18 Respiratory Effort Normal Respiratory Pattern Normal Blood Pressure 125/74 H Blood Pressure Mean 91 Pulse Ox 99 Oxygen Delivery Method <Dr. Jay Alanis DO - Last Filed: 07/03/24 02:05> Physical Exam Const Vital Signs: 07/02/24 15:38 07/02/24 18:59 07/02/24 20:00 Temperature 98.2 F Temperature Source Oral Pulse Rate 62 89 53 L Respiratory Rate 16 16 16 Respiratory Effort Respiratory Pattern Blood Pressure 152/96 H 121/81 H 133/83 H Blood Pressure Mean 114 94 99 Pulse Ox 98 99 98 Oxygen Delivery Method Room Air Room Air Room Air 07/02/24 20:10 07/02/24 21:49 Temperature 97.5 F L Temperature Source Pulse Rate 65 Respiratory Rate 18 Respiratory Effort Normal Respiratory Pattern Normal Blood Pressure 125/74 H Blood Pressure Mean 91 Pulse Ox 99 Oxygen Delivery Method [facility] <HEIDE Lane - Last Filed: 07/02/24 21:32> [facility] Narrative Medical decision making narrative: Patient presents with a left sided occipital headache and trapezius pain ongoing for about 2 weeks. She appears well and nontoxic and is afebrile and hemodynamically stable. She has very reproducible muscular tenderness of the left cervical and trapezius area. No midline tenderness. Upper extremity MSPs are intact. She had an epidural thoracic injection prior to symptom onset but has no fever chills or constitutional symptoms and this was in a different location so I do not suspect epidural abscess. She is also followed up with the pain management clinic who did the injection to evaluate the symptoms and they agreed. Patient's symptoms are consistent with a cervical strain. She was treated with Toradol, Norflex and then Valium with improvement. I feel she can be discharged with symptomatic care instructions. 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 She was discharged in stable condition. <Dr. Jay Alanis, DO - Last Filed: 07/03/24 02:05> [facility] MDM Narrative Medical decision making narrative: Patient presents with a left sided occipital headache and trapezius pain ongoing for about 2 weeks. She appears well and nontoxic and is afebrile and hemodynamically stable. She has very reproducible muscular tenderness of the left cervical and trapezius area. No midline tenderness. Upper extremity MSPs are intact. She had an epidural thoracic injection prior to symptom onset but has no fever chills or constitutional symptoms and this was in a different location so I do not suspect epidural abscess. She is also followed up with the pain management clinic who did the injection to evaluate the symptoms and they agreed. Patient's symptoms are consistent with a cervical strain. She was treated with Toradol, Norflex and then Valium with improvement. I feel she can be discharged with symptomatic care instructions. 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 She was discharged in stable condition. Supervisory Physician Note Patient was seen and examined with the Advanced Practice Provider. Nursing notes and vital signs have been reviewed. Pertinent old records have been reviewed. I agree with the essential elements of the TATUM's history, physical exam, assessment, and plan. The differential diagnosis and management options were discussed with the TATUM. I participated in determining and agree with the management, procedures, final impression and disposition as documented. See changes noted by me. Please see addendum or separate note for any additional details. 49-year-old female presents for evaluation of left neck pain. Gradually worsening. Describes it as muscle spasm. Pain worse with movement. Saw PCP and given IM steroid with prescription for Flexeril that patient has not yet picked up. Denies weakness, persistent numbness or tingling. Denies any trauma or injury. Denies any headache, blurry vision, URI symptoms, chest pain, shortness of breath, fever, chills. Pertinent physical exam findings: Gen: A&O x3, NAD Head: Normocephalic, atraumatic Eyes: No sclera icterus, conjunctiva clear, PERRL, EOMI ENT: Moist mucous membranes, Neck: Trachea midline, No JVD, no midline spinal tenderness, no bony step-offs, tender to palpation of the paraspinal musculature of the cervical spine as well as the entire trapezius distribution-palpation recreates her pain, no signs of trauma or infection, no meningismus CV: RRR, no murmurs, no chest wall TTP Resp: Lungs CTA BL, no w/r/c Musc: Full ROM, no deformity, no spinal TTP, no angel luis step-offs, plus 2 out of 4 left radial and ulnar pulses, strength plus 5 out of 5 in all extremities Patient denies any trauma or injury. Low suspicion for fracture. Do not think any emergent imaging is needed at this time. No need for laboratory workup. Suspect musculoskeletal strain versus spasm. Toradol and Norflex ordered for pain. On reevaluation, patient was still endorsing pain. Valium ordered. Patient's pain improved. Stable to discharge home. 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 Impression: 1. Left cervical strain/spasm Discharge Plan Triage Chief Complaint: Other, Pain/Inj ED Midlevel Provider: Sanjuana Mayers ED Provider: Jay Alanis Dx/Rx/DC Orders Clinical Impression: Cervical myofascial strain Instructions: ED Neck Sprain or Strain Prescriptions: No Action omeprazole 40 mg capsule,delayed release(DR/EC) 40 mg PO DAILY folic acid 1 mg tablet 2 mg PO DAILY methotrexate sodium 2.5 mg tablet 15 mg PO QWEEK Patient Comments: TAKE 8 TABLETS BY MOUTH ONCEA WEEK levothyroxine 88 mcg tablet 88 mcg PO DAILY Hair,Skin and Nails Tablet 1 tab PO BID sqeregr-evaklxhod-anrd 333-133-5 mg tablet 1 tab PO BID omega 2-xar-bdm-fish oil [Fish Oil] 60-90-500 mg capsule 1 cap PO DAILY cetirizine [All Day Allergy (cetirizine)] 10 mg tablet 10 mg PO DAILY cyanocobalamin (vitamin B-12) 5,000 mcg tablet,disintegrating 5,000 mcg PO DAILY cholecalciferol (vitamin D3) 250 mcg (10,000 unit) capsule 250 mcg PO DAILY clindamycin HCl 300 mg capsule 300 mg PO TID Qty: 30 0RF famotidine 40 MG tablet 40 mg PO DAILY hydroxychloroquine 200 MG tablet 200 mg PO BID gabapentin 300 mg capsule 300 mg PO DAILY doxycycline hyclate 20 mg tablet 20 mg PO BID Otezla 30 mg tablet 30 mg PO BID Primary Care Provider: Bebo North Referrals: Bebo North MD [Primary Care Provider] - Activity Restrictions/Additional Instructions: I think this is a muscle strain. You can take Tylenol 1000 mg every 6 hours, use heat or ice, and trial the Flexeril your primary care doctor prescribed. Print Language: [place] Disposition Disposition: Home, Self Care Discharge Date/Time: 07/02/24 21:50
[2024-07-02] MEDS: Ketorolac 30 MG/ML Syringe IM (20:17)
[2024-07-02] MEDS: Orphenadrine 100 MG Tablet PO (20:17)
[2024-07-02] MEDS: diazePAM 2 MG Tablet PO (21:11)
[2024-07-02 21:49] VITALS: BP 125/74; PULSE 65; RESP 18; TEMP 36.4; O2SAT 99
== END 2024-07-02 21:50 | disposition home or self-care (01) ==
PROVIDERS: Emergency Provider Surgery; PCP Family Medicine; Visit Provider Surgery
DX: S16.1XXA Strain of muscle, fascia and tendon at neck level, initial encounter (principal); Z90.710 Acquired absence of both cervix and uterus; R51.9 Headache, unspecified; K21.9 Gastro-esophageal reflux disease without esophagitis; Z79.899 Other long term (current) drug therapy; E78.5 Hyperlipidemia, unspecified; E03.9 Hypothyroidism, unspecified; Z79.890 Hormone replacement therapy; X58.XXXA Exposure to other specified factors, initial encounter; Y92.89 Other specified places as the place of occurrence of the external cause
CPT/HCPCS: 96372; 99282

== ENCOUNTER 2024-07-05 12:08 | Emergency (ER) | payer BC, SELFPAY ==
[2024-07-05 12:10] VITALS: BP 135/96; PULSE 60; RESP 16; TEMP 36.5; O2SAT 99; BMI 26.6
--- NOTE | 2024-07-05 12:49 | RAD_ITS ---
EXAM: XR CERVICAL SPINE, 2 OR 3 VIEWS CLINICAL INDICATION: Neck pain. TECHNIQUE: Frontal and lateral views of the cervical spine. COMPARISON: No relevant prior studies available. FINDINGS: VERTEBRAE: The head is markedly tilted to the left. No acute fractures or traumatic subluxation of the cervical spine, craniocervical junction and cervicothoracic junction. No significant facet arthropathy. No spondylolisthesis. Preservation of the normal cervical lordosis. DISC SPACES: Unremarkable. Disc spaces are maintained. SOFT TISSUES: Unremarkable. No prevertebral soft tissue widening. LUNG APICES: Clear. RAD/Cerv Spine 2 or 3 Views IMPRESSION: 1. Markedly tilted head to the left may be due to torticollis. 2. No plain for evidence of acute osseous abnormality of the cervical spine or traumatic subluxation of the cervical spine. Electronically Signed: Mahendra Boyd MD at 13:32 EST ,
[2024-07-05] MEDS: Morphine 4 MG/ML Syringe IM (12:57)
[2024-07-05] MEDS: diazePAM 5 MG Tablet PO (12:57)
--- NOTE | 2024-07-05 12:57 | EDS_ITS ---
HPI History of Present Illness Chief Complaint: Other, Pain/Inj Informant: patient Narrative Narrative: Increasing left-sided neck pain radiating to her parietal region all started 4 days ago. Of note patient had thoracic epidural injection June 09. 2 days later had headaches that worsen with sitting up. She is followed by Dr. Anthony. She found follow-up with her pain management office a week ago, was placed back on gabapentin for which she takes once a day. She developed nontraumatic neck pain this past that radiated to her scalp. She is seen by her PCP was given a steroid injection, started on Flexeril. She reported the following day pain worsened when she leaned over to pick something up. She had tingling to her left fingers. There is no weakness. In the ER she had medications of injections for NSAIDs and muscle relaxers took the edge off she states by 1 AM symptoms returning. She has been using her Flexeril last dose 11 AM. She called PCP office today try to get a different medication however her primary doctor was not in the office and referred back to the ER. Denies trauma. States her headache has been improving. However neck pain is worsening. No fevers. Prior similar symptoms: No PFSH PFSH Medical History Cellulitis of right thumb Paronychia of right thumb Acute bronchitis, unspecified Acute maxillary sinusitis, unspecified Obstructive sleep apnea Obesity Prolapsed uterus RP (rectal prolapse) Rheumatoid arthritis DDD (degenerative disc disease) Asthma Hypothyroidism GERD (gastroesophageal reflux disease) Hyperlipidemia Home Medications ?Medication ?Instructions ?Recorded ?Last Taken ?Type famotidine 40 mg tablet 40 mg PO DAILY 01/14/20 Unknown History hydroxychloroquine 200 mg tablet 200 mg PO BID 01/14/20 Unknown History folic acid 1 mg tablet 2 mg PO DAILY 02/23/20 Unknown History mdpjnzy-dsqarznnu-olus 333 mg-133 1 tab PO BID 02/18/23 Unknown History mg-5 mg tablet cetirizine 10 mg tablet (All Day 10 mg PO DAILY 02/18/23 Unknown History Allergy (cetirizine)) cholecalciferol (vitamin D3) 250 250 mcg PO DAILY 02/18/23 Unknown History mcg (10,000 unit) capsule cyanocobalamin (vitamin B-12) 5,000 mcg PO DAILY 02/18/23 Unknown History 5,000 mcg disintegrating tablet levothyroxine 88 mcg tablet 88 mcg PO DAILY 02/18/23 Unknown History methotrexate sodium 2.5 mg tablet 15 mg PO QWEEK 02/18/23 Unknown History multivitamin with minerals 1 tab PO BID 02/18/23 Unknown History (Hair,Skin and Nails tablet) omega 7-gbs-ojk-fish oil 60 mg-90 1 cap PO DAILY 02/18/23 Unknown History mg-500 mg capsule (Fish Oil) omeprazole 40 mg capsule,delayed 40 mg PO DAILY 02/18/23 Unknown History release clindamycin HCl 300 mg capsule 300 mg PO TID #30 caps 05/19/24 Unknown Rx apremilast 30 mg tablet (Otezla) 30 mg PO BID 07/02/24 Unknown History doxycycline hyclate 20 mg tablet 20 mg PO BID 07/02/24 Unknown History gabapentin 300 mg capsule 300 mg PO DAILY 07/02/24 Unknown History Allergy/AdvReac Type Severity Reaction Status Date / Time No Known Allergies Allergy Verified 07/05/24 12:11 Family History Mother Hypertension Other Cancer Diabetes Heart disease Thyroid disorder Surgical History Gastric bypass status for obesity History of cardiac cath History of pubovaginal sling History of hysterectomy Social History Smoking Status: Never smoker alcohol intake: current alcohol intake frequency: holidays/special occasions only Alcohol type: hard liquor substance use type: does not use ROS ROS ED Constitutional Constitutional ED: Denies chills, fever(s) or sweats Eyes Eyes: Denies change in vision ENT ENT ED: Denies dysphagia or sore throat Cardiovascular Cardiovascular: Denies chest pain, leg edema, palpitations or racing heartbeat Respiratory/Chest Respiratory/Chest: Denies cough, dyspnea or dyspnea on exertion Gastrointestinal Gastrointestinal: Denies abdominal pain, diarrhea, nausea or vomiting Genitourinary Genitourinary ED: Denies dysuria, hematuria or urinary frequency Musculoskeletal Musculoskeletal: Reports neck pain; Denies back pain or extremity pain Integumentary Denies rash or wounds Neurologic Neurologic: Reports headache(s); Denies paresthesias or weakness EXAM Physical Exam Const Vital Signs: 07/05/24 12:09 07/05/24 12:10 Temperature 97.7 F L Temperature Source Oral Pulse Rate 60 Respiratory Rate 16 Respiratory Pattern Normal Blood Pressure 135/96 H Blood Pressure Mean 109 Pulse Ox 99 Oxygen Delivery Method Room Air Positive well nourished and well developed General Appearance ED: well developed and NAD HEENT Reports moist mucous membranes HEENT Narrative: Tenderness along the parietal scalp and lateral left cervical there is no current rash with torticollis of the left side.. Minimal tenderness trapezius area. Pulses are intact distal upper extremities. Full range of motion of the upper extremities. No meningismus. normocephalic and atraumatic Eyes EOMs intact bilaterally and conjunctivae normal General Eye ED: Yes normal appearance of both eyes Neck no lymphadenopathy and supple General: Negative for tenderness Chest Wall Chest: Negative for tenderness Resp normal respiratory effort and normal air movement Effort and Inspection: symmetric chest movement; Negative for respiratory distress Cardio regular rate, regular rhythm and no murmurs Peripheral Pulses: pulses 2+ throughout GI normal to inspection, nondistended, normoactive bowel sounds and non-tender Palpation: Negative for guarding or rebound tenderness present Back/Spine no CVA tenderness and no thoracic nor lumbar tenderness Extremity normal to inspection General Extremety ED: Negative for edema or tenderness General Extremity: Negative for edema Neuro oriented x3, CN's II-XII intact bilaterally and no sensory deficits noted Sensorium / Orientation: awake and alert Skin no rashes or lesions noted and no wounds MDM MDM MDM Narrative Medical decision making narrative: Interventions / MDM: Differential diagnosis: Torticollis, cervical spine disease Diagnosis considered but do not suspect: shingles however no lesion. My EKG interpretation: N/A Imaging independently reviewed and interpreted by myself: Cervical x-ray 3 views: No acute process. CT brain: No acute process. CT cervical spine discussion with radiology concerns for pathological C1 fracture lytic lesions of C2 without fracture. External documents reviewed: N/A Test considered but not ordered:N/A ED course: Patient presented with torticollis symptoms increasing pain rating to C2 dermatome of the left scalp. There is no current rash or lesions treated symptomatically with morphine and p.o. Valium. With continued symptoms she is sent for cervical x-rays. Negative cervical x-rays with torticollis findings. Reevaluation mild improvement of symptoms. She reporting pain in the base of her neck which progressed over the past week. She does have radicular symptoms C2 dermatome. She is started on gabapentin for the past week. With new symptoms for her that is worsened discussed obtaining CT scans for further evaluation. CT brain and cervical spine ordered for further evaluation. 1600: CT brain negative. CT cervical spine discussed radiology concerns for pathological C1 fracture with lytic lesions of C2 without fracture. She is placed in a c-collar. She has no cancer history. She reported noting rheumatoid arthritis and history states he was ruled out on recheck labs. I did discuss with her pain Dr. Anthony discussed the findings. Discussed radiology will need further oncological rule out and spine evaluation. Currently no spine available service at this time. Discussed with patient for transfer which she agreed. Labs were drawn. Additional IV morphine for pain control. 1620: Discussed with transferring center [facility] Who will get a hold of transferring doctors to discuss. Currently will be signed out to Dr. Taylor Re-evaluation: stable Disposition discussed with patient/family/significant other: Patient and family Case discussed with consulting clinician: Pain management This note was generated with [employer] (?) dictation software. It may contain incorrect words, spelling, and punctuation that were not noted in checking the note before signing. Lab Data Attestation: I reviewed the patient's lab results. Labs: Laboratory Results - last 24 hr 07/05/24 16:01 WBC 8.9 RBC 4.51 Hgb 12.9 Hct 41.2 MCV 91.4 MCH 28.6 MCHC 31.3 L RDW Std Deviation 47.3 H RDW Coeff of Cristina 13.9 Plt Count 339 MPV 10.0 Immature Gran % (Auto) 0.500 Neut % (Auto) 67.0 Lymph % (Auto) 24.3 [place] % (Auto) 6.9 Eos % (Auto) 0.6 Baso % (Auto) 0.7 Absolute Neuts (auto) 6.0 Absolute Lymphs (auto) 2.15 Nucleated RBC % 0 Radiography Diagnostic Testing: Clinical Impression(s) from Imaging Studies Cervical Spine X-Ray 07/05/24 12:49 IMPRESSION: 1. Markedly tilted head to the left may be due to torticollis. 2. No plain for evidence of acute osseous abnormality of the cervical spine or traumatic subluxation of the cervical spine. Electronically Signed: Mahendra Boyd MD at 13:32 EST , Brain CT 07/05/24 14:28 IMPRESSION: No CT evidence of intracranial bleeding, intracranial mass or acute intracranial abnormality. COMMENT: Please see CT cervical spine showing osteolytic lesion with pathologic fracture in the left lateral mass of C1 and osteolytic lesion of the C2 odontoid process without pathologic fracture. Electronically Signed: Mahendra Boyd MD at 15:32 EST , Cervical Spine CT 07/05/24 14:28 IMPRESSION: 1. Lytic lesion in the left lateral mass of C1 with pathologic fracture. This is the source of neck pain and left tilted head positioning. 2. 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 3. No other suspicious fractures of the cervical spine. 4. Small bone island in the posterior lower T2 vertebral body. Electronically Signed: Mahendra Boyd MD at 15:29 EST , ADDENDUM: 07/05/24 1543 IMPRESSION: 1. Lytic lesion in the left lateral mass of C1 with pathologic fracture. This is the source of neck pain and left tilted head positioning. 2. 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 3. No other suspicious fractures of the cervical spine. 4. Small bone island in the posterior lower T2 vertebral body. N.B. : The above Results were Read Back by Mahendra Boyd MD to Tank Hagen DO, and understanding confirmed on 07/05/2024 15:36:36 (ET). Electronically Signed: Mahendra Boyd MD at 15:29 EST , Discharge Plan Triage Chief Complaint: Other, Pain/Inj ED Provider: Tank Hagen Dx/Rx/DC Orders Clinical Impression: Closed C1 fracture, Lytic bone lesions on xray, Left torticollis Prescriptions: No Action omeprazole 40 mg capsule,delayed release(DR/EC) 40 mg PO DAILY folic acid 1 mg tablet 2 mg PO DAILY methotrexate sodium 2.5 mg tablet 15 mg PO QWEEK Patient Comments: TAKE 8 TABLETS BY MOUTH ONCEA WEEK levothyroxine 88 mcg tablet 88 mcg PO DAILY Hair,Skin and Nails Tablet 1 tab PO BID cpyfnhv-bwqjaoojq-wkpn 333-133-5 mg tablet 1 tab PO BID omega 9-nyi-tfj-fish oil [Fish Oil] 60-90-500 mg capsule 1 cap PO DAILY cetirizine [All Day Allergy (cetirizine)] 10 mg tablet 10 mg PO DAILY cyanocobalamin (vitamin B-12) 5,000 mcg tablet,disintegrating 5,000 mcg PO DAILY cholecalciferol (vitamin D3) 250 mcg (10,000 unit) capsule 250 mcg PO DAILY clindamycin HCl 300 mg capsule 300 mg PO TID Qty: 30 0RF famotidine 40 MG tablet 40 mg PO DAILY hydroxychloroquine 200 MG tablet 200 mg PO BID gabapentin 300 mg capsule 300 mg PO DAILY doxycycline hyclate 20 mg tablet 20 mg PO BID Otezla 30 mg tablet 30 mg PO BID Primary Care Provider: Bebo Nroth Referrals: Bebo North MD [Primary Care Provider] - Print Language: Maori Disposition Disposition: DC/Tx to Another Type of HCF Discharge Date/Time: 07/05/24 19:38
--- NOTE | 2024-07-05 14:28 | CT_ITS ---
We are attempting to reach an attending provider to discuss findings. An addendum with communication details will be sent when the communication is complete. EXAM: CT CERVICAL SPINE WITHOUT INTRAVENOUS CONTRAST CLINICAL INDICATION: Worsening neck pain. TECHNIQUE: Helically acquired images were obtained of the cervical spine without intravenous contrast. 2D reformatted images were reviewed. This CT exam was performed using one or more of the following dose reduction techniques: automated exposure control, adjustment of the mA and/or kV according to patient size, and/or use of iterative reconstruction technique. RADIATION DOSE: CTDIvol = 17.51 mGy, DLP = 377.25 mGy-cm COMPARISON: No relevant prior studies available. FINDINGS: VERTEBRAE: Lytic lesion involving the left lateral mass of C1 with pathologic fracture. 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 Small bone island in the posterior lower T12 vertebral body. No other suspicious fractures of the cervical spine or upper thoracic spine. No traumatic subluxation or malalignment of the cervical spine. DISCS/SPINAL CANAL/NEURAL FORAMINA: Unremarkable. No critical stenosis. Normal cervical disc space heights canal and neuroforamina. SOFT TISSUES: Unremarkable. No prevertebral soft tissue swelling. LYMPH NODES: Unremarkable. No cervical adenopathy. LUNG APICES: Unremarkable as visualized. Clear. CT/Spine Cervical without Contras IMPRESSION: 1. Lytic lesion in the left lateral mass of C1 with pathologic fracture. This is the source of neck pain and left tilted head positioning. 2. 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 3. No other suspicious fractures of the cervical spine. 4. Small bone island in the posterior lower T2 vertebral body. Electronically Signed: Mahendra Boyd MD at 15:29 EST ,
--- NOTE | 2024-07-05 14:28 | CT_ITS ---
EXAM: CT HEAD WITHOUT INTRAVENOUS CONTRAST CLINICAL INDICATION: Worsening neck pain. TECHNIQUE: Multiple axial images were obtained of the head without intravenous contrast. This CT exam was performed using one or more of the following dose reduction techniques: automated exposure control, adjustment of the mA and/or kV according to patient size, and/or use of iterative reconstruction technique. RADIATION DOSE: CTDIvol = 44.99 mGy, DLP = 779.24 mGy-cm COMPARISON: No relevant prior studies available. FINDINGS: BRAIN AND EXTRA-AXIAL SPACES: Unremarkable. No intra- or extra-axial hemorrhage. No evidence of acute infarct. No intracranial mass or mass effect. There is preservation of the stephens/white matter interface. Posterior fossa structures are unremarkable. Ventricles are appropriate for age. No hydrocephalus. Basal cisterns are patent. BONES/JOINTS: Osteolytic lesion of the C2 odontoid process and partially included small portion of the left lateral mass of C1 osteolytic lesion. SINUSES: Unremarkable as visualized. Clear. MASTOID AIR CELLS: Unremarkable. Clear. ORBITS: Visualized globes, extraocular muscles, optic nerves and retrobulbar fat appear unremarkable. OTHER FINDINGS: Tilted head positioning. CT/Brain/Head without Contrast IMPRESSION: No CT evidence of intracranial bleeding, intracranial mass or acute intracranial abnormality. COMMENT: Please see CT cervical spine showing osteolytic lesion with pathologic fracture in the left lateral mass of C1 and osteolytic lesion of the C2 odontoid process without pathologic fracture. Electronically Signed: Mahendra Boyd MD at 15:32 EST ,
[2024-07-05 16:09] VITALS: BP 128/71; PULSE 74; RESP 16; O2SAT 99
[2024-07-05 16:18] LABS: Absolute Lymphocyte Count 2.15 X10^3/uL (0.83-4.51); Basophil# 0.06 X10^3/uL; Basophil% 0.7 % (0-1); Eosinophil# 0.05 X10^3/uL; Eosinophils% 0.6 % (0-5); Hematocrit 41.2 % (37-47); Hemoglobin 12.9 g/dL (12.0-15.0); Lymphocyte # 2.15 X10^3/ul (0.83-4.51); Lymphocyte % 24.3 % (19-41); Mean Corp Hgb Conc 31.3 g/dL (32-36); Mean Corpuscular Hgb 28.6 pg (27.0-32.0); Mean Corpuscular Volume 91.4 fL (81-99); Monocyte# 0.61 X10^3/uL; Monocyte% 6.9 % (0-10); NRBC Flagged by Analyzer 0 % (0-5); Neutrophil # 5.95 X10^3/uL (2.7-7.7); Platelet Count 339 K/mm3 (150-450); RBC Distribution Width CV 13.9 % (11.6-14.6); RBC Distribution Width SD 47.3 fl (35.1-43.9); Red Blood Count 4.51 M/mm3 (4.2-5.4); White Blood Count 8.9 K/mm3 (4.4-11.0)
[2024-07-05] MEDS: Morphine 4 MG/ML Syringe IV (16:21)
[2024-07-05 16:30] LABS: Anion Gap 3 (5-15); BUN 17 mg/dL (7-18); BUN/Creat Ratio 24.9 RATIO (10-20); Chloride 106 mmol/L (98-107); Creatinine, Serum 0.68 mg/dL (0.55-1.02); EST Glomerular Filtration Rate 97 mL/min (>60); Est Glom Filt Rate - Afr Amer 118 mL/min (>60); Estimated Creatinine Clearance 99.89 ml/min; Glucose 100 mg/dL (74-106); Potassium 4.1 mmol/L (3.5-5.1); Sodium Level 140 mmol/L (136-145)
[2024-07-05 16:32] LABS: Prothrombin Time (Protime)PT. 13.6 SECONDS (11.7-14.9)
[2024-07-05 16:33] LABS: Partial Thromboplast Time 26.7 Seconds (24.1-36.2)
[2024-07-05] MEDS: dexAMETHasone 10 MG/ML Vial IV (17:12)
[2024-07-05 18:57] VITALS: BP 149/75; PULSE 55; RESP 16; TEMP 36.6; O2SAT 99
== END 2024-07-05 19:38 | disposition other institution (70) ==
PROVIDERS: Emergency Provider Emergency Medicine; PCP Family Medicine; Visit Provider Emergency Medicine
DX: S12.000A Unspecified displaced fracture of first cervical vertebra, initial encounter for closed fracture (principal); Z90.710 Acquired absence of both cervix and uterus; M89.8X8 Other specified disorders of bone, other site; M43.6 Torticollis; X50.1XXA Overexertion from prolonged static or awkward postures, initial encounter; E78.5 Hyperlipidemia, unspecified; K21.9 Gastro-esophageal reflux disease without esophagitis; Z79.899 Other long term (current) drug therapy; E03.9 Hypothyroidism, unspecified; Z79.890 Hormone replacement therapy
CPT/HCPCS: 70450; 72040; 72125; 80048; 85025; 85610; 85730; 96372; 96374; 96375; 99283

== ENCOUNTER → 2024-07-27 | Outpatient (CLI) | payer BC, SELFPAY ==
--- NOTE | 2024-07-27 12:51 | VDLE_ITS ---
Reason For Study: BLE Edema RIGHT LEFT GSV is normal. GSV is normal. CFV is compressible, spontaneous, phasic, CFV is compressible, spontaneous, phasic, competent and demonstrates normal competent, and demonstrates normal augmentation. augmentation. FV is compressible, spontaneous, phasic, FV is compressible, spontaneous, phasic, competent and demonstrates normal competent and demonstrates normal augmentation. augmentation. POP V is compressible, spontaneous, phasic, POP V is compressible, spontaneous, phasic, competent and demonstrates normal competent and demonstrates normal augmentation. augmentation. T/P Trunk is compressible. T/P Trunk is compressible. PTV is compressible. PTV is compressible. RT PerV is compressible. LT PerV is compressible. Anechoic Non Vascularized area noted in Rt Prox Calf measuring approximately 2.08cm x 0.82cm. Procedure This is a venous duplex using B-mode, color flow and spectral Doppler. Exam performed in department. The exam was diagnostic. A preliminary report was called and/or faxed to Dr North / Nghia Coleman. VL/Venous Duplex US - Arthur Extrem Interpretation Summary Deep veins of the bilateral lower extremities are patent and compressible segme ntally. There is no evidence of bilateral lower extremity deep vein thrombosis. The bilateral great saphenous veins appear patent and compressible segmentally. Anechoic non vascularized area noted in right proximal calf measuring approxima tely 2.08cm x 0.82cm. Ordering Physician: Bebo North Referring Physician: Bebo North Performed By: Rigoberto Patino RVT
== END | disposition home or self-care (01) ==
LOC: CVS 12:47
PROVIDERS: PCP Family Medicine; Referring Provider Family Medicine; Visit Provider Family Medicine
DX: R60.0 Localized edema (principal)
CPT/HCPCS: 93970

== ENCOUNTER → 2024-10-06 | Outpatient (CLI) | payer BC, SELFPAY ==
[2024-10-06 17:52] LABS: Absolute Lymphocyte Count 1.88 X10^3/uL (0.83-4.51); Absolute Neutrophil Count 4.4 X10^3/uL (2.0-7.7); Basophil# 0.07 X10^3/uL; Eosinophil# 0.13 X10^3/uL; Eosinophils% 1.8 % (0-5); Hematocrit 41.6 % (37-47); Hemoglobin 12.9 g/dL (12.0-15.0); Lymphocyte # 1.88 X10^3/ul (0.83-4.51); Lymphocyte % 26.2 % (19-41); Mean Corpuscular Hgb 27.9 pg (27.0-32.0); Mean Platelet Vol. 10.1 fl (6.2-12.0); Monocyte% 9.8 % (0-10); NRBC Flagged by Analyzer 0 % (0-5); Neutrophil # 4.37 X10^3/uL (2.7-7.7); Neutrophil % 60.9 % (47-70); Platelet Count 412 K/mm3 (150-450); RBC Distribution Width CV 13.7 % (11.6-14.6); RBC Distribution Width SD 44.9 fl (35.1-43.9); Red Blood Count 4.62 M/mm3 (4.2-5.4); White Blood Count 7.2 K/mm3 (4.4-11.0)
[2024-10-06 18:36] LABS: ALB/GLOB Ratio 1.3 RATIO (0.9-2.4); AST(SGOT) 27 U/L (<=31); Alanine Aminotransfer ALT/SGPT 27 U/L (<=34); Albumin, Serum 4.1 g/dL (3.5-5.0); Alkaline Phosphatase 95 U/L (35-104); Anion Gap 12 (5-15); BUN 13 mg/dL (4-19); BUN/Creat Ratio 20.6 RATIO (10-20); Calcium,Total 9.4 mg/dL (7.6-11.0); Carbon Dioxide 24.1 mmol/L (21.0-32.0); Chloride 104 mmol/L (98-108); Cholesterol 189 mg/dL (<=200); Creatinine, Serum 0.65 mg/dL (0.70-1.20); EST Glomerular Filtration Rate 108 (>60); Globulin 3.1 g/dL (2.2-4.2); Glucose 72 mg/dL (70-99); High Density Lipoprotein 78 mg/dL; Low Density Lipoprotein Calc. 84 mg/dL; Potassium 4.1 mmol/L (3.3-5.1); Protein, Total 7.2 g/dL (5.9-8.4); Sodium Level 140 mmol/L (133-145); Total Bilirubin 0.17 mg/dL (0.00-1.30); Triglycerides 137 mg/dL; Very Low Density Lipoprotein 27 mg/dL (5-40); cholesterol:hdl ratio screen 2.44
== END | disposition home or self-care (01) ==
LOC: MFPLAB 16:02
PROVIDERS: PCP Family Medicine; Referring Provider Family Medicine; Visit Provider Family Medicine
DX: E03.8 Other specified hypothyroidism (principal); E78.00 Pure hypercholesterolemia, unspecified
CPT/HCPCS: 36415; 80053; 80061; 84439; 84443; 85025

== ENCOUNTER 2024-12-14 15:00 | Outpatient (RCR) | payer BC, SELFPAY ==
--- NOTE | 2024-11-23 12:56 | HP.PTEVAL_ITS ---
Patient's Visit Information Visit Information Visit Information: YRN PEREZ is a 49 year old F referred to Physical Therapy by Michael Rocha DO with a diagnosis of CERVICAL SPINE FUSION C1-C4, DOS: 08/16/24. Date of Evaluation: 11/16/24 Physical Therapist: Farzad Purvis DPT Visit Plan Frequency: 2x /Week Duration: 6 Weeks Plan: NO CERVICAL ROM EXERCISES 1) light manual to B UT and B levator scapulae. 2) B shoulder ROM AAROM 3) light scapular and B shoulder strengthening. Subjective Subjective: Pt. is here today for her initial evaluation with diagnosis of cervical spinal fusion, C1-C4, DOS: 08/16/24. Pt. 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 She had a C1 fracture due to the tumor. Pt. does have a tumor in the C2 vertebrae. She ultimately had a spinal fusion with bone graft. Per patient physician does not want any cervical ROM exercises. Pt. is now having pain in BUE from shoulder to forearms bilaterally with any UE movements. Spinal surgeon does not think her symptoms are due to her surgery. Pt. reports having some weakness, but she is not dropping objects. Pt. would like to increase her strength and decrease her B shoulder issues. Pt. physician does not want any ROM of her cervical spine. Pain Neck: Pain Intensity (Out of 10): 0 Pain Intensity Range: 1 and 4 Shoulders, Elbows: Pain Intensity (Out of 10): 3 Pain Intensity Range: 1 and 3 Comment: symmetrical Objective Objective: POSTURE: Pt. has normal posture in stance. Pt. is very guarded and stiff through her cervical spine. Normal kyphosis noted. PALPATION: Pt. has tenderness throughout B UTs and levator scapulae. Pt. has well healing cervical incision. No signs of infection. NEURO: Pt. has normal DTR of BUEs, pt. reports normal sensation. ROM: PT. has close to full ROM of BUEs, no increase in symptoms. Tightness noted and end range. NO ROM OF CERVICAL SPINE COMPLETED. MMT: Pt. has 5-/5 strength throughout BUEs. NO cervical isometrics tested Balance/Special Test Scores Oswestry Neck Score: 22 Goals Goal 1:: LTG: Pt. to be I with HEP. Goal Time Frame: 4-6 Weeks Goal 2:: LTG: Pt. to reports 0/10 pain in BUEs with all ADLs. Goal Time Frame: 4-6 Weeks Goal 3:: LTG: Pt. to be able to sleep throughout the night without increase in symptoms. Goal Time Frame: 4-6 Weeks Goal 4:: LTG: Pt. to have full B shoulder ROM without increase in symptoms. Goal Time Frame: 4-6 Weeks Goal 5:: LTG: Pt. to have 5/5 strength in BUEs. Goal Time Frame: 4-6 Weeks Rehabilitation Potential Physical Therapy Diagnosis: Pt. has signs and symptoms consistent with CERVICAL SPINE FUSION C1-C4, DOS: 08/16/24. Pt. has very limited cervical spine ROM and physician would not like any ROM exercises to be completed currently. Pt. has some weakness in her BUEs and muscle tightness in B UTs and levator scapulae. Pt. would benefit from PT to address the above limitations. Rehabilitation Potential: Good Anticipated Interventions Patient/Client Instruction: Educate patient on: Condition, Plan of Care, Risk Factors and Benefits of Fitness Program For the Purpose of:: To foster healthy habits, To improve decision making, To facilitate caregiver knowledge, To improve self management, To prevent re-injury and To improve ability to perform tasks related to life management Therapeutic Exercise to Include: Strength training, Power training, Flexibilty training, Passive ROM, Active ROM and Scapular Strength/Stabilization For the Purpose of:: To decrease pain, To increase ROM, To improve nutrient delivery to tissue, To increase oxygenation perfusion, To improve muscle performance and motor function, To improve ability to perform ADL's, To improve health of tissue, To decrease soft tissue restriction and To increase flexibili ty/ROM Manual Therapy Techniques to Include: Soft tissue mobilization Comment: IASTIM For the Purpose of:: To decrease pain, To decrease swelling/inflammation, To increase ROM, To decrease soft tissue restriction and To increase flexibility/ROM Text: Thank you for the opportunity to evaluate your patient. For Medicare and Medicare HMO plans, please review the plan of care and approve it. It will need to be FAXED BACK to us at [phone] for Medicare purposes. For Medicare only, by signing this I certify the plan of care. Please let me know if there are questions or concerns regarding this plan of care. Physician Signature: Date:
--- NOTE | 2024-12-14 15:24 | HP.PTREVAL ---
Re-Evaluation Intro: Michael Rocha DO, It has been my pleasure to treat YRN PEREZ over the last 9 visits for CERVICAL SPINE FUSION C1-C4, DOS: 08/16/24. Please see the progress note below for an update on the physical therapy plan of care! Subjective Subjective: pt. reports overall doing about the same. Pt. is to have an MRI tomorrow. Pt. reports some pain with previous activities with her shoulders. Objective Objective/Function: pt. is having increased neck pain at rest. Pt. is having an MRI tomorrow. She has concerns about her tumor returning. He is having pain with all arm movements. Pt. is also reporting increased difficulty with focusing on tasks and with questioning. Pt. has been very good about not doing neck ROM. She having increased pain with sitting and basic activities. MMT: Pt. has no myotomal weakness in BUEs, Pt. has 5-/5 B shoulder flexion and abduction mild increase in soreness. Pt. has 5/5 B ER and IR motions. She has decent ROM in B shoulders, but painful arc noted. Pt. reports being more concerned with her neck pain currently. I suggested she continue to work on ROM of B shoulders and slowly work on shoulder strengthening Plan Plan Plan: I am DCing patient back to physician at this point in time. Patient is to continue with her B shoulder ROM and light strengthening as tolerated. Pt. consents. Balance/Gait/Functional tests Balance/Special Test Scores Oswestry Neck Score: 28 Goals Goals Goal 1:: LTG: Pt. to be I with HEP. Goal Time Frame: 4-6 Weeks Goal Progress: Progressing Goal 2:: LTG: Pt. to reports 0/10 pain in BUEs with all ADLs. Goal Time Frame: 4-6 Weeks Goal Progress: Progressing Goal 3:: LTG: Pt. to be able to sleep throughout the night without increase in symptoms. Goal Time Frame: 4-6 Weeks Goal Progress: Not Progressing Goal 4:: LTG: Pt. to have full B shoulder ROM without increase in symptoms. Goal Time Frame: 4-6 Weeks Goal Progress: Progressing Goal 5:: LTG: Pt. to have 5/5 strength in BUEs. Goal Time Frame: 4-6 Weeks Goal Progress: Progressing Anticipated Interventions Anticipated Interventions Patient/Client Instruction: Educate patient on: Condition, Plan of Care, Risk Factors and Benefits of Fitness Program For the Purpose of:: To foster healthy habits, To improve decision making, To facilitate caregiver knowledge, To improve self management, To prevent re-injury and To improve ability to perform tasks related to life management Therapeutic Exercise to Include: Strength training, Power training, Flexibilty training, Passive ROM, Active ROM and Scapular Strength/Stabilization For the Purpose of:: To decrease pain, To increase ROM, To improve nutrient delivery to tissue, To increase oxygenation perfusion, To improve muscle performance and motor function, To improve ability to perform ADL's, To improve health of tissue, To decrease soft tissue restriction and To increase flexibility/ROM Manual Therapy Techniques to Include: Soft tissue mobilization Comment: IASTIM For the Purpose of:: To decrease pain, To decrease swelling/inflammation, To increase ROM, To decrease soft tissue restriction and To increase flexibility/ROM Re-Evaluation Ending Re-evaluation ending: Please do not hesitate to contact me at [phone] by phone or if you have questions or concerns regarding this new plan of care! Sincerely, Farzad Purvis DPT
== END 2024-12-14 19:00 | disposition home or self-care (01) ==
LOC: PT 15:00
PROVIDERS: PCP Family Medicine; Referring Provider Orthopaedic Surgery Orthopaedic Surgery of the Spine; Visit Provider Orthopaedic Surgery Orthopaedic Surgery of the Spine
DX: Z98.1 Arthrodesis status (principal)
CPT/HCPCS: 97110; 97140; 97161; 97530

== ENCOUNTER → 2025-02-01 | Outpatient (CLI) | payer BC, SELFPAY ==
[2025-02-01 18:06] LABS: Hematocrit 41.1 % (37-47); Hemoglobin 12.8 g/dL (12.0-15.0); Immature Granulocytes Count 0.020 X10^3/uL (0.0-0.0); Mean Corp Hgb Conc 31.1 g/dL (32-36); Mean Corpuscular Volume 90.3 fL (81-99); Mean Platelet Vol. 10.3 fl (6.2-12.0); NRBC Flagged by Analyzer 0 % (0-5); Platelet Count 396 K/mm3 (150-450); RBC Distribution Width CV 13.4 % (11.6-14.6); RBC Distribution Width SD 44.2 fl (35.1-43.9); Red Blood Count 4.55 M/mm3 (4.2-5.4); White Blood Count 7.4 K/mm3 (4.4-11.0)
[2025-02-01 18:42] LABS: AST(SGOT) 20 U/L (<=31); Alanine Aminotransfer ALT/SGPT 20 U/L (<=34); Albumin, Serum 4.3 g/dL (3.5-5.0); Alkaline Phosphatase 88 U/L (35-104); Anion Gap 10 (5-15); BUN 19 mg/dL (4-19); BUN/Creat Ratio 25.7 RATIO (10-20); Calcium,Total 9.3 mg/dL (7.6-11.0); Carbon Dioxide 24.4 mmol/L (21.0-32.0); Chloride 106 mmol/L (98-108); Cholesterol 164 mg/dL (<=200); Globulin 3.0 g/dL (2.2-4.2); Glucose 119 mg/dL (70-99); Low Density Lipoprotein Calc. 75 mg/dL; Potassium 4.1 mmol/L (3.3-5.1); Triglycerides 74 mg/dL; Very Low Density Lipoprotein 15 mg/dL (5-40); cholesterol:hdl ratio screen 2.22
== END | disposition home or self-care (01) ==
LOC: MFPLAB 16:27
PROVIDERS: PCP Family Medicine; Referring Provider Family Medicine; Visit Provider Family Medicine
DX: R73.09 Other abnormal glucose (principal); E03.8 Other specified hypothyroidism; E78.00 Pure hypercholesterolemia, unspecified
CPT/HCPCS: 36415; 80053; 80061; 83036; 84439; 84443; 85025

== ENCOUNTER → 2025-05-26 | Outpatient (CLI) | payer BC, SELFPAY ==
[2025-05-26 18:11] LABS: Hematocrit 41.7 % (37-47); Hemoglobin 13.2 g/dL (12.0-15.0); Immature Granulocytes Count 0.050 X10^3/uL (0.0-0.0); Mean Corp Hgb Conc 31.7 g/dL (32-36); Mean Corpuscular Volume 89.5 fL (81-99); Mean Platelet Vol. 10.5 fl (6.2-12.0); NRBC Flagged by Analyzer 0 % (0-5); Platelet Count 430 K/mm3 (150-450); RBC Distribution Width CV 13.6 % (11.6-14.6); RBC Distribution Width SD 44.5 fl (35.1-43.9); Red Blood Count 4.66 M/mm3 (4.2-5.4); White Blood Count 7.5 K/mm3 (4.4-11.0)
[2025-05-26 18:52] LABS: PTHIN 45 pg/mL (11-61)
[2025-05-26 19:27] LABS: AST(SGOT) 34 U/L (<=31); Alanine Aminotransfer ALT/SGPT 43 U/L (<=34); Albumin, Serum 4.4 g/dL (3.5-5.0); Alkaline Phosphatase 110 U/L (35-104); Anion Gap 9 (5-15); BUN 17 mg/dL (4-19); BUN/Creat Ratio 23.2 RATIO (10-20); Calcium,Total 9.3 mg/dL (7.6-11.0); Carbon Dioxide 29.1 mmol/L (21.0-32.0); Chloride 103 mmol/L (98-108); Ferritin 126 ng/mL (22-378); Globulin 3.1 g/dL (2.2-4.2); Glucose 82 mg/dL (70-99); Iron 71 ug/dL (50-170); Iron Binding Capacity,Total 355 ug/dL (250-450); Iron Binding Capacity,Unsat 284 ug/dL (228-428); Potassium 4.0 mmol/L (3.3-5.1); Vitamin B12 532 pg/mL (180-914); Vitamin D,25 Hydroxy 33.9 ng/mL (30-100)
[2025-06-02 05:07] LABS: Copper, Serum or Plasma 112 ug/dL (80-158); Folate, Hemolysate Test 546.0 ng/mL (Not Estab.); Folate, RBC (Hct) Test 42.8 % (34.0-46.6); Folates, RBC Test 1276 ng/mL (>498); Vitamin B1, Thiamine 170.8 nmol/L (66.5-200.0); Zinc, Plasma or Serum 47 ug/dL (44-115)
== END | disposition home or self-care (01) ==
PROVIDERS: PCP Family Medicine
DX: K90.9 Intestinal malabsorption, unspecified (principal)
CPT/HCPCS: 36415; 80053; 82306; 82525; 82607; 82728; 82747; 83540; 83550; 83970; 84425; 84630; 85014; 85025

== ENCOUNTER 2025-05-30 20:14 | Emergency (ER) | payer BC, SELFPAY ==
[2025-05-30 20:15] VITALS: BP 140/99; PULSE 65; RESP 16; TEMP 36.7; O2SAT 100; BMI 31.1
--- NOTE | 2025-05-30 21:01 | EX.ED.DYSGE1 ---
HPI History of Present Illness Chief Complaint: Neuro S/Sx Narrative Narrative: 50-year-old female past medical history of osteoblastoma, sees oncology at [facility], Dr. Liu presents with headache and blurry vision out of her left eye that she has had for the last week. 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 She states alondra it made it explode. She had spinal fusion performed. It was actually diagnosed here, and she was sent to [facility] Where she had surgery. She states that a few months ago she did have an MRI that showed that all of the tumor was not removed. She is scheduled for another MRI in May. As she has been having pain for the last week with visual changes out of her left eye, she states there is concern for spinal fluid leak versus other acute pathology. She called the nurse practitioner of her oncologist today who discussed it with her oncologist, and they were sent for possible MRI versus CT of the brain and cervical spine. No exacerbating or alleviating factors. [facility] Medical History Cellulitis of right thumb Paronychia of right thumb Acute bronchitis, unspecified Acute maxillary sinusitis, unspecified Obstructive sleep apnea Obesity Prolapsed uterus RP (rectal prolapse) Rheumatoid arthritis DDD (degenerative disc disease) Asthma Hypothyroidism GERD (gastroesophageal reflux disease) Hyperlipidemia Home Medications ?Medication ?Instructions ?Recorded ?Last Taken ?Type famotidine 40 mg tablet 40 mg PO DAILY 01/14/20 Unknown History folic acid 1 mg tablet 2 mg PO DAILY 02/23/20 Unknown History kvrmsql-jluesloas-ylkz 333 mg-133 1 tab PO BID 02/18/23 Unknown History mg-5 mg tablet cetirizine 10 mg tablet (All Day 10 mg PO DAILY 02/18/23 Unknown History Allergy (cetirizine)) cholecalciferol (vitamin D3) 250 250 mcg PO DAILY 02/18/23 Unknown History mcg (10,000 unit) capsule cyanocobalamin (vitamin B-12) 5,000 mcg PO DAILY 02/18/23 Unknown History 5,000 mcg disintegrating tablet levothyroxine 88 mcg tablet 88 mcg PO DAILY 02/18/23 Unknown History multivitamin with minerals 1 tab PO BID 02/18/23 Unknown History (Hair,Skin and Nails tablet) omega 9-zgu-bha-fish oil 60 mg-90 1 cap PO DAILY 02/18/23 Unknown History mg-500 mg capsule (Fish Oil) omeprazole 40 mg capsule,delayed 40 mg PO DAILY 02/18/23 Unknown History release apremilast 30 mg tablet (Otezla) 30 mg PO BID 07/02/24 Unknown History gabapentin 300 mg capsule 300 mg PO DAILY 07/02/24 Unknown History Allergy/AdvReac Type Severity Reaction Status Date / Time No Known Allergies Allergy Verified 05/30/25 20:15 Family History Mother Hypertension Other Cancer Diabetes Heart disease Thyroid disorder Surgical History Gastric bypass status for obesity History of cardiac cath History of pubovaginal sling History of hysterectomy Social History Smoking Status: Never smoker alcohol intake: current alcohol intake frequency: holidays/special occasions only Alcohol type: hard liquor substance use type: does not use ROS ROS ED ROS Narrative Review of systems is positive for visual disturbance out of left eye x 1 week as well as headache/neck pain. No fevers or chills, no nausea or vomiting, no exacerbating or alleviating factors. EXAM Physical Exam Narrative Exam Narrative: Afebrile. Vital signs noted. Nontoxic-appearing. Cardiovascular examination reveals regular rate and rhythm. Lungs are clear to auscultation bilaterally. Abdomen is soft and nontender with positive bowel sounds. Neurological examination nonfocal, nonlateralizing. Range of motion of neck is limited secondary to previous fusion surgery. Moves all extremities. Const Vital Signs: 05/30/25 20:15 05/30/25 21:15 05/30/25 22:00 Temperature 98.1 F Temperature Source Oral Pulse Rate 65 55 L 67 Respiratory Rate 16 16 Blood Pressure 140/99 H 134/89 H 123/88 H Blood Pressure Mean 112 104 99 Pulse Ox 100 98 98 Oxygen Delivery Method Room Air Room Air Room Air MDM MDM MDM Narrative Medical decision making narrative: I had a lengthy discussion with the patient and her daughter who is at the bedside. At this hour in the evening, MRI is unavailable. In discussion with the patient, she states that her oncologist is requesting that CT of the brain and C-spine be performed and as long as there is no acute pathology that she could get an outpatient MRI. I did order the CT of the brain as well as cervical spine. I reviewed the radiology report of the CT of the brain without contrast and CT of the cervical spine. There is no acute hemorrhage or mass effect. CT of the cervical spine shows no acute fracture. There are postsurgical changes consistent with spinal fusion. There are odontoid lesions as well as left lateral mass C1 elements reflecting known osteoblastoma. Radiology did comment on compressive height loss of the C1 left lateral mass age-indeterminate. Upon repeat examination, patient is resting on the cot reading a book. I did offer her parenteral analgesics but she declined stating that the medication that she takes at home has been effective in treating her pain. She will follow-up with her dairy feed sales consultant/oncologist at [facility] Tomorrow. She may require outpatient MRI. I feel she can be discharged safely home with follow-up. Return instructions were reviewed. Patient is motivated for discharge. Disposition is discharged home in stable condition. History & Record Review Discussion w/independent historian: Patient Additional record(s) reviewed:: Prior ED visit Lab Data Labs: Laboratory Results - last 24 hr 05/30/25 21:28 POC Glucose 88 Radiography Diagnostic Testing: Clinical Impression(s) from Imaging Studies Brain CT 05/30/25 21:05 IMPRESSION: No acute intracranial abnormality. No acute cervical spine fracture or malalignment. Postoperative changes of cervico-occipital instrumented fusion from the basiocciput to the C4 level. Irregular lucent lesion involving the odontoid process and left lateral mass elements of C1 likely reflecting known osteoblastoma, and may be treatment related change. There is compressive height loss of the C1 left lateral mass, age-indeterminate. Reading Location: [facility] Cervical Spine CT 05/30/25 21:05 IMPRESSION: No acute intracranial abnormality. No acute cervical spine fracture or malalignment. Postoperative changes of cervico-occipital instrumented fusion from the basiocciput to the C4 level. Irregular lucent lesion involving the odontoid process and left lateral mass elements of C1 likely reflecting known osteoblastoma, and may be treatment related change. There is compressive height loss of the C1 left lateral mass, age-indeterminate. Reading Location: [facility] Discharge Plan Triage Chief Complaint: Neuro S/Sx Other Complaint: Headache ED Provider: Mahendra Jones Dx/Rx/DC Orders Clinical Impression: Osteoblastoma, Neck pain, History of fusion of cervical spine, Head pain Instructions: ED Headache Unspecified, ED Pain, Acute, Uncertain Cause Prescriptions: No Action omeprazole 40 mg capsule,delayed release(DR/EC) 40 mg PO DAILY folic acid 1 mg tablet 2 mg PO DAILY levothyroxine 88 mcg tablet 88 mcg PO DAILY Hair,Skin and Nails Tablet 1 tab PO BID [id number] 333-133-5 mg tablet 1 tab PO BID omega 1-lyl-qbv-fish oil [Fish Oil] 60-90-500 mg capsule 1 cap PO DAILY cetirizine [All Day Allergy (cetirizine)] 10 mg tablet 10 mg PO DAILY cyanocobalamin (vitamin B-12) 5,000 mcg tablet,disintegrating 5,000 mcg PO DAILY cholecalciferol (vitamin D3) 250 mcg (10,000 unit) capsule 250 mcg PO DAILY famotidine 40 MG tablet 40 mg PO DAILY gabapentin 300 mg capsule 300 mg PO DAILY Otezla 30 mg tablet 30 mg PO BID Primary Care Provider: Bebo North Referrals: Bebo North MD [Primary Care Provider, Family Practice] Activity Restrictions/Additional Instructions: Call your oncologist tomorrow. You may require outpatient MRI. Return to the emergency department with new or worsening symptoms. Continue your pain medications that you have at home. Print Language: Colombian Disposition Disposition: Home, Self Care
--- NOTE | 2025-05-30 21:05 | CT_ITS ---
EXAM: CT/Spine Cervical without Contras
--- NOTE | 2025-05-30 21:05 | CT_ITS ---
EXAM: CT/Brain/Head without Contrast
[2025-05-30 21:15] VITALS: BP 134/89; PULSE 55; RESP 16; O2SAT 98
[2025-05-30 21:16] VITALS: BMI 31.4
[2025-05-30 22:00] VITALS: BP 123/88; PULSE 67; O2SAT 98
[2025-05-30 22:39] VITALS: BP 123/88; PULSE 56; RESP 16; TEMP 36.7; O2SAT 99
== END 2025-05-30 22:43 | disposition home or self-care (01) ==
PROVIDERS: Emergency Provider Emergency Medicine; PCP Family Medicine; Visit Provider Emergency Medicine
DX: R51.9 Headache, unspecified (principal); M54.2 Cervicalgia; D16.9 Benign neoplasm of bone and articular cartilage, unspecified; M43.22 Fusion of spine, cervical region; K21.9 Gastro-esophageal reflux disease without esophagitis; Z79.899 Other long term (current) drug therapy; E03.9 Hypothyroidism, unspecified; Z79.890 Hormone replacement therapy; E78.5 Hyperlipidemia, unspecified; Z90.710 Acquired absence of both cervix and uterus; H53.8 Other visual disturbances
CPT/HCPCS: 70450; 72125; 82962; 99284